=== PATIENT | female | born 1950 | race Caucasian/White ===

== ENCOUNTER 2018-09-02 20:09 | Emergency (ER) | payer MEDICARE ==
[2018-09-02] MEDS ORDERED: TYLENOL 325 MG PO STA (21:11)
[2018-09-02] MEDS ORDERED: TYLENOL 325 MG ONE (21:19)
[2018-09-02 22:08] VITALS: O2SAT 97
--- NOTE | 2018-09-02 23:04 | ERPHSYRPT ---
- History of Present Illness Source: patient, family Exam Limitations: no limitations Patient Subjective Stated Complaint: Severe pain in R hip down to R knee, states she has had blood clot in both legs in the past and this feels like that Triage Nursing Assessment: Pt a/o, brought in wheel chair, shannan ped pulses normal , cap refill <3 sec, no redness, skin warm dry, no obvious deformities, bruises , or lacerations Physician History: Pt is a 68 y/o female that presented to the ED with severe pain in the R hip and groin, that is the same pain she had in the past when she had a DVT. Pt states, the pain started suddenly and is intense. Pt denies any injury or fall. No change in medical therapy. Occurred: just prior to arrival Quality: constant, aching Lower Extremities Pain: hip: right (pain in hip and groin) Modifying Factors: Improves With: pain medication Associated Symptoms: none Allergies/Adverse Reactions: aspirin Allergy (Verified 03/26/14 17:16) clorazepate dipotassium [From Tranxene T-Tab] Allergy (Verified 09/02/18 20:44) codeine [Codeine] Allergy (Verified 03/26/14 17:16) hydrocodone bitartrate [From Vicoprofen] Allergy (Verified 03/26/14 17:16) ibuprofen [From Vicoprofen] Allergy (Verified 03/26/14 17:16) Penicillins Allergy (Verified 03/26/14 17:16) Home Medications: Rivaroxaban [Xarelto] 20 mg PO DAILY 12/17/12 [History] Atorvastatin Calcium [Lipitor] 40 mg PO QHS 09/02/18 [History] Exenatide Microspheres [Bydureon Bcise] 2 mg SQ WEEKLY 09/02/18 [History] Ezetimibe 10 mg PO QHS 09/02/18 [History] Famotidine 20 mg [Pepcid 20 MG] 20 mg PO BID 09/02/18 [History] Furosemide 20 mg [Lasix 20 mg] 20 mg PO DAILY 09/02/18 [History] Hydralazine HCl 50 mg PO DAILY 09/02/18 [History] Insulin Lispro [Humalog] 100 unit SQ 09/02/18 [History] Liraglutide [Victoza 2-Mark] DAILY 09/02/18 [History] Losartan Potassium 50 mg PO DAILY 09/02/18 [History] Hx Tetanus, Diphtheria Vaccination/Date Given: Yes Hx Influenza Vaccination/Date Given: Yes Hx Pneumococcal Vaccination/Date Given: Yes - Review of Systems Constitutional: No Fever, No Chills Respiratory: No Cough, No Dyspnea Cardiac: No Chest Pain, No Edema, No Syncope Abdominal/Gastrointestinal: No Abdominal Pain, No Nausea, No Vomiting, No Diarrhea Musculoskeletal: Arthralgias (R hip and groin), Myalgias Skin: No Rash Neurological: No Dizziness, No Focal Weakness, No Sensory Changes - Past Medical History Pertinent Past Medical History: Yes Neurological History: No Pertinent History ENT History: No Pertinent History Cardiac History: Hypertension, Other Respiratory History: COPD Endocrine Medical History: Diabetes Type II Musculoskeletal History: Other GI Medical History: Cirrhosis History: No Pertinent History Psycho-Social History: Depression Female Reproductive Disorders: No Pertinent History Other Medical History: 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 hand. right foot left foot. heart ablation - Social History Smoking Status: Never smoker Exposure to second hand smoke: No Alcohol Use: None Drug Use: none Patient Lives Alone: No Significant Family History: diabetes, hypertension - Nursing Vital Signs Nursing Vital Signs: Initial Vital Signs Temperature 97.7 F 09/02/18 20:31 Pulse Rate 79 09/02/18 20:31 Respiratory Rate 18 09/02/18 20:31 Blood Pressure 161/94 09/02/18 20:31 O2 Sat by Pulse Oximetry 99 09/02/18 20:31 Pain Scale Pain Intensity [Right Thigh] 10 Pain Intensity 10 - Physical Exam General Appearance: alert Cardiovascular/Respiratory Exam: chest non-tender, normal breath sounds, regular rate/rhythm, no respiratory distress Gastrointestinal/Abdominal Exam: non-tender, guarding Hips Exam: right: limited range of motion, pain Neuro/Tendon Exam: normal sensation, normal motor functions Mental Status Exam: alert, oriented x 3, cooperative SpO2: 97 - Course Nursing assessment & vital signs reviewed: Yes - Radiology Ultrasound Exam Right Venous Lower Extremity Ultrasound: Other (No DVT) Ordered Tests: Active Orders 24 hr Category Date Time Status VENOUS UNILAT/LIMITED EXTREMIT [US] Stat Exams 09/02/18 22:58 Taken D-DIMER QUANTITATION Stat Lab 09/02/18 20:50 Completed Medication Summary Discontinued Medications Generic Name Dose Route Start Last Admin Trade Name Ezequiel PRN Reason Stop Dose Admin Acetaminophen 650 mg 09/02/18 21:11 09/02/18 21:20 Tylenol 325 Mg PO 09/02/18 21:12 650 mg STAT STA Administration Acetaminophen Confirm 09/02/18 21:19 Tylenol 325 Mg Administered 09/02/18 21:20 Dose 650 mg .ROUTE .STPE [employer]ATIONAL-MED ONE Lab/Rad Data: Laboratory Results 09/02/18 Range/Units 20:50 D-Dimer 275 (215-500) ng/mL - Progress Progress: improved Progress Note: 09/02/18 23:04 Pt had negative D Dimer, but as pt stattes, had h/o multiple DVTs, I did order a doppler that was negative. Pt's pain got controlled with Tylenol. Pt was advised to f/u with her PCP, for more work up, including MRI. Will see patient in: office Counseled pt/family regarding: need for follow-up - Departure Time of Disposition: 23:05 Departure Disposition: Home Clinical Impression: Right hip pain Condition: Stable Critical Care Time: No Referrals: ANALI MONTGOMERY [Primary Care Provider] - Additional Instructions: F/U with PCP. Take Tylenol as needed for pain.
[2018-09-02 23:12] VITALS: BP 106/78; PULSE 86
--- NOTE | 2018-09-03 08:33 | XRAY ---
Indication: Right leg pain. Two-dimensional sonogram and color Doppler imaging of the major venous vessels of the right leg was performed. Comparison: None No thrombus seen in the examined deep venous vessels of the right leg including greater saphenous vein. Veins demonstrate normal compressibility. Venous waveforms are normal with and without augmentation. Impression: Right leg negative for DVT. Comment: Preliminary report was given.
== END 2018-09-02 23:13 | disposition home or self-care (01) ==
LOC: ED 20:09
DX: M25.551 Pain in right hip (principal); E11.9 Type 2 diabetes mellitus without complications; I10 Essential (primary) hypertension; Z79.899 Other long term (current) drug therapy
CPT/HCPCS: 36415; 85379; 93971; 99283; A9270-GY

== ENCOUNTER 2018-10-15 23:07 | Emergency (ER) | payer MEDICARE ==
[2018-10-15] MEDS ORDERED: DUONEB 0.5-3 MG/3 ml Neb IH ONE ×2 (23:32→23:39)
[2018-10-15] MEDS ORDERED: NITRO-BID 2% UD PACKETS TOP ONE (23:33)
[2018-10-15] MEDS ORDERED: NITRO-BID 2% UD PACKETS ONE (23:35)
--- NOTE | 2018-10-15 23:38 | ERPHSYRPT ---
- History of Present Illness Time Seen by Provider: 10/15/18 23:24 Source: patient, EMS Exam Limitations: clinical condition Patient Subjective Stated Complaint: midsternal chest pain that began this evening with severe sob Triage Nursing Assessment: Pt alert and oriented x 3. Skin pale. Pt unable to speak d/t SOB and is using accessory muscles. Audible wheezing present. Lung sounds wheezing and coarse throughout. Physician History: Pt started c/o midsternal chest pain, pressure, and increasing SOB few hours ago tonight. She denies productive cough, sore throat, vomiting, fever or chills. She is mod. severe distress, wheezing. Timing/Duration: today Activities at Onset: none Severity of Dyspnea-Max: severe Severity of Dyspnea-Current: severe Possible Cause: occasional episodes Modifying Factors: Improves With: nothing Associated Symptoms: constant, chest pain/discomfort, wheezing, heart racing Allergies/Adverse Reactions: aspirin Allergy (Verified 10/15/18 23:27) clorazepate dipotassium [From Tranxene T-Tab] Allergy (Verified 10/15/18 23:27) codeine [Codeine] Allergy (Verified 10/15/18 23:27) hydrocodone bitartrate [From Vicoprofen] Allergy (Verified 10/15/18 23:27) ibuprofen [From Vicoprofen] Allergy (Verified 10/15/18 23:27) Penicillins Allergy (Verified 10/15/18 23:27) Home Medications: Rivaroxaban [Xarelto] 15 mg PO DAILY 12/17/12 [History] Atorvastatin Calcium [Lipitor] 40 mg PO QHS 09/02/18 [History] Exenatide Microspheres [Bydureon Bcise] 2 mg SQ WEEKLY 09/02/18 [History] Ezetimibe 10 mg PO QHS 09/02/18 [History] Famotidine 20 mg [Pepcid 20 MG] 20 mg PO BID 09/02/18 [History] Furosemide 20 mg [Lasix 20 mg] 20 mg PO DAILY 09/02/18 [History] Hydralazine HCl 50 mg PO BID 09/02/18 [History] Insulin Lispro [Humalog] 18 unit SQ TID 09/02/18 [History] Liraglutide [Victoza 2-Mark] 1.8 units SQ DAILY 09/02/18 [History] Losartan Potassium 50 mg PO DAILY 09/02/18 [History] Hx Tetanus, Diphtheria Vaccination/Date Given: Yes Hx Influenza Vaccination/Date Given: Yes Hx Pneumococcal Vaccination/Date Given: Yes - Review of Systems Constitutional: No Symptoms Ears, Nose, & Throat: No Symptoms Respiratory: Dyspnea, Wheezing Cardiac: Chest Pain Abdominal/Gastrointestinal: Nausea Skin: No Symptoms Neurological: No Symptoms All Other Systems: Reviewed and Negative - Past Medical History Pertinent Past Medical History: Yes Neurological History: No Pertinent History ENT History: No Pertinent History Cardiac History: Hypertension, Other Respiratory History: COPD Endocrine Medical History: Diabetes Type II Musculoskeletal History: Other GI Medical History: Cirrhosis History: No Pertinent History Psycho-Social History: Depression Female Reproductive Disorders: No Pertinent History Other Medical History: hx of svt and had other arrythmias and 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 hand. right foot left foot. heart ablation. thyroidectomy - Social History Smoking Status: Never smoker Exposure to second hand smoke: No Alcohol Use: None Drug Use: none Patient Lives Alone: No Significant Family History: diabetes, hypertension - Female History Hx Now: No - Nursing Vital Signs Nursing Vital Signs: Initial Vital Signs Temperature 98.9 F 10/15/18 23:08 Pulse Rate 147 H 10/15/18 23:08 Respiratory Rate 32 H 10/15/18 23:08 Blood Pressure 215/101 10/15/18 23:08 O2 Sat by Pulse Oximetry 80 L 10/15/18 23:08 Pain Scale Pain Intensity 10 - Physical Exam General Appearance: moderate distress Eye Exam: eyes nml inspection Ears, Nose, Throat Exam: normal ENT inspection, normal pharynx Neck Exam: normal inspection, non-tender, supple, No carotid bruit, No JVD Respiratory Exam: rhonchi, wheezing (diffuse, bilateral) Cardiovascular/Chest Exam: normal peripheral pulses, tachycardia, irregular, No murmur, No JVD Abdominal/Gastrointestinal Exam: soft, No tenderness Peripheral Pulses Exam: dorsalis-pedis (R): 1+, dorsalis-pedis (L): 1+ Neurologic Exam: alert, oriented x 3, cooperative, normal mood/affect Skin Exam: normal color, warm, dry, No rash Lymphatic Exam: No adenopathy SpO2 Interpretation: hypoxic SpO2: 80 O2 Delivery: Nasal Cannula - Course Nursing assessment & vital signs reviewed: Yes EKG Interpreted by Me: RATE (103), Other (paced) - Radiology Exams Chest X-ray Interpretation: Interpreted by me, Other (Cardiomegaly, CHF) Ordered Tests: Active Orders 24 hr Category Date Time Status Darklight Inspector STAT Care 10/15/18 23:33 Active EKG-ER Only STAT Care 10/15/18 23:32 Active Bishop [Catheter-Moran Bishop] STAT Care 10/16/18 00:05 Active IV Insertion STAT Care 10/15/18 23:32 Active CHEST 1 VIEW (PORTABLE) Stat Exams 10/15/18 23:32 Taken ARTERIAL BLOOD GASES Stat Lab 10/15/18 23:54 Completed CBC W DIFF Stat Lab 10/15/18 23:30 Completed CMP Stat Lab 10/15/18 23:30 Completed Lactic Acid Stat Lab 10/15/18 23:54 Results MAGNESIUM Stat Lab 10/15/18 23:30 Completed NT PRO BNP Stat Lab 10/15/18 23:30 Completed PROTIME WITH INR Stat Lab 10/15/18 23:30 Completed PTT Stat Lab 10/15/18 23:30 Completed TROPONIN Q3H Lab 10/15/18 23:30 Completed TROPONIN Q3H Lab 10/16/18 02:45 Ordered TROPONIN Q3H Lab 10/16/18 05:45 Ordered TROPONIN Q3H Lab 10/16/18 08:45 Ordered TROPONIN Q3H Lab 10/16/18 11:45 Ordered BiPap/CPAP STAT RT 10/15/18 23:32 Active Respiratory Nebulizer STAT RT 10/15/18 23:33 Completed Respiratory Therapy Assessment DAILY RT 10/16/18 00:24 Active Medication Summary Discontinued Medications Generic Name Dose Route Start Last Admin Trade Name Freq PRN Reason Stop Dose Admin Albuterol/Ipratropium 3 ml 10/15/18 23:32 10/15/18 23:40 Duoneb 0.5-3 Mg/3 Ml Neb IH 10/15/18 23:33 3 ml STAT ONE Administration Albuterol/Ipratropium Confirm 10/15/18 23:39 Duoneb 0.5-3 Mg/3 Ml Neb Administered 10/15/18 23:40 Dose 3 ml IH .STK-MED ONE Furosemide 80 mg 10/15/18 23:44 10/15/18 23:48 Lasix 40 Mg/4 Ml IV 10/15/18 23:45 80 mg STAT ONE Administration Furosemide Confirm 10/15/18 23:46 Lasix 40 Mg/4 Ml Administered 10/15/18 23:47 Dose 80 mg .ROUTE .STK-MED ONE Insulin Human Regular 6 unit 10/16/18 01:05 Novolin R SQ 10/16/18 01:06 STAT ONE Nitroglycerin 1 gm 10/15/18 23:33 10/15/18 23:36 Nitro-Bid 2% Ud Packets TOP 10/15/18 23:34 1 gm STAT ONE Administration Nitroglycerin Confirm 10/15/18 23:35 Nitro-Bid 2% Ud Packets Administered 10/15/18 23:36 Dose 1 gm .ROUTE .STK-MED ONE Lab/Rad Data: Laboratory Result Diagrams 10/15/18 23:30 10/15/18 23:30 Laboratory Results 10/15/18 10/15/18 10/15/18 Range/Units 23:54 23:54 23:30 WBC (4.0-10.5) K/mm3 RBC (4.1-5.4) M/mm3 Hgb (12.0-16.0) gm/dl Hct (35-47) % MCV (78-100) fl MCH (26-32) pg MCHC (32-36) g/dl RDW (11.5-14.0) % Plt Count (150-450) K/mm3 MPV (6-9.5) fl Gran % (36.0-66.0) % Eos # (Auto) (0-0.5) Absolute Lymphs (auto) (1.0-4.6) Absolute Monos (auto) (0.0-1.3) Lymphocytes % (24.0-44.0) % Monocytes % (0.0-12.0) % Eosinophils % (0.00-5.0) % Basophils % (0.0-0.4) % Absolute Granulocytes (1.4-6.9) Basophils # (0-0.4) PT (9.95-12.35) SECONDS INR (0.8-3.0) APTT (25.3-37.0) SECONDS Puncture Site LEFT BRACHIAL pCO2 44 (35-45) mmHg pO2 159 H* (75-100) mmHg Base Excess -2.8 L (-2.0-2.0) O2 Saturation 96.8 (94-100) g/dF ABG pH 7.33 L (7.35-7.45) ABG HCO3 23.2 (22-28) ABG O2 Sat (Measured) 99.0 (95-100) % Jonas Test NOT APPLICABLE A-a Gradient 71 a/A Ratio 0.69 Hemoglobin 11.5 Carboxyhemoglobin 1.3 (0.0-6.9) % THgb Methemoglobin 0.9 L (1.4-1.5) % Temperature 37.0 C POC O2 Flow Rate 40 % Inspiratory BiPAP 12 Expiratory BiPAP 6 Sodium (137-145) mmol/L Potassium 4.7 (3.5-5.1) mmol/L Chloride (98-107) mmol/L Carbon Dioxide (22-30) mmol/L Anion Gap (5-15) MEQ/L BUN (7-17) mg/dL Creatinine (0.52-1.04) mg/dL Estimated GFR ML/MIN Glucose (74-106) mg/dL Lactic Acid 2.4 H (0.4-2.0) Calcium (8.4-10.2) mg/dL Magnesium (1.6-2.3) mg/dL Total Bilirubin (0.2-1.3) mg/dL AST (14-36) U/L ALT (0-35) U/L Alkaline Phosphatase (38-126) U/L Troponin I 0.044 H* (0.000-0.034) ng/mL NT-Pro-B Natriuret Pep (0-900) pg/mL Serum Total Protein (6.3-8.2) g/dL Albumin (3.5-5.0) g/dL 10/15/18 10/15/18 10/15/18 Range/Units 23:30 23:30 23:30 WBC 6.1 (4.0-10.5) K/mm3 RBC 3.52 L (4.1-5.4) M/mm3 Hgb 11.1 L (12.0-16.0) gm/dl Hct 36.1 (35-47) % MCV 102.6 H (78-100) fl MCH 31.5 (26-32) pg MCHC 30.7 L (32-36) g/dl RDW 15.2 H (11.5-14.0) % Plt Count 110 L (150-450) K/mm3 MPV 9.7 H (6-9.5) fl Gran % 68.7 H (36.0-66.0) % Eos # (Auto) 0.08 (0-0.5) Absolute Lymphs (auto) 1.42 (1.0-4.6) Absolute Monos (auto) 0.40 (0.0-1.3) Lymphocytes % 23.2 L (24.0-44.0) % Monocytes % 6.5 (0.0-12.0) % Eosinophils % 1.3 (0.00-5.0) % Basophils % 0.3 (0.0-0.4) % Absolute Granulocytes 4.20 (1.4-6.9) Basophils # 0.02 (0-0.4) PT 11.5 (9.95-12.35) SECONDS INR 0.99 (0.8-3.0) APTT 28.9 (25.3-37.0) SECONDS Puncture Site pCO2 (35-45) mmHg pO2 (75-100) mmHg Base Excess (-2.0-2.0) O2 Saturation (94-100) g/dF ABG pH (7.35-7.45) ABG HCO3 (22-28) ABG O2 Sat (Measured) (95-100) % Jonas Test A-a Gradient a/A Ratio Hemoglobin Carboxyhemoglobin (0.0-6.9) % THgb Methemoglobin (1.4-1.5) % Temperature C POC O2 Flow Rate % Inspiratory BiPAP Expiratory BiPAP Sodium 139 (137-145) mmol/L Potassium 4.7 (3.5-5.1) mmol/L Chloride 103 (98-107) mmol/L Carbon Dioxide 26 (22-30) mmol/L Anion Gap 14.6 (5-15) MEQ/L BUN 24 H (7-17) mg/dL Creatinine 1.27 H (0.52-1.04) mg/dL Estimated GFR 44.2 ML/MIN Glucose 309 H (74-106) mg/dL Lactic Acid (0.4-2.0) Calcium 9.6 (8.4-10.2) mg/dL Magnesium 2.0 (1.6-2.3) mg/dL Total Bilirubin 0.80 (0.2-1.3) mg/dL AST 24 (14-36) U/L ALT 23 (0-35) U/L Alkaline Phosphatase 110 (38-126) U/L Troponin I (0.000-0.034) ng/mL NT-Pro-B Natriuret Pep 1130 H (0-900) pg/mL Serum Total Protein 7.9 (6.3-8.2) g/dL Albumin 4.2 (3.5-5.0) g/dL - Progress Progress: improved Air Movement: fair Progress Note: 10/16/18 01:21 Pt was given 80 mg Lasix iv , 1 inch NTP, Bishop catheter inserted, and started on BiPAP, (12/ 40 % PO2,), imporved her heart rate controlled now 60/min, blood pressure improved, as well as her chest pain, stable, and afebrile. We called Dr Rosenberg at [facility] ED, discussed her case in details, he accepted patient to be transferred there for further treatment, patient anmd her family were informed and agreed, they understood all risks and benefits of her transfer, she is stable to be transported to [facility]. Blood Culture(s) Obtained: No Antibiotics given: No Counseled pt/family regarding: lab results, diagnosis, rad results - Departure Time of Disposition: 01:24 Departure Disposition: Transfer Clinical Impression: Elevated troponin Congestive heart failure Qualifiers: Heart failure type: unspecified Heart failure chronicity: acute Qualified Code( s): I50.9 - Heart failure, unspecified Condition: Fair Critical Care Time: Yes Critical Care Time(excluding separately billable procedures): 30-74 minutes Referrals: ANALI MONTGOMERY [Primary Care Provider] - Instructions: Heart Failure, Atypical Chest Pain
[2018-10-15] MEDS ORDERED: Lasix 40 MG/4 ML IV ONE (23:44)
[2018-10-15] MEDS ORDERED: Lasix 40 MG/4 ML ONE (23:46)
[2018-10-15 23:54] LABS: BASOPHIL % 0.3 % (0.0-0.4); Basophil (Absolute #) 0.02 (0-0.4); Eosinophil % 1.3 % (0.00-5.0); Eosinophil (Absolute #) 0.08 (0-0.5); Granulocytes % 68.7 % (36.0-66.0); Hematocrit 36.1 % (35-47); Hemoglobin 11.1 gm/dl (12.0-16.0); Lymphocyte (Absolute #) 1.42 (1.0-4.6); Lymphocytes % 23.2 % (24.0-44.0); Mean Cell Volume 102.6 fl (78-100); Mean Corpuscular Hemoglobin 31.5 pg (26-32); Mean Corpuscular Hgb Concent. 30.7 g/dl (32-36); Mean Platelet Volume 9.7 fl (6-9.5); Monocytes % 6.5 % (0.0-12.0); Platelet Count 110 K/mm3 (150-450); Red Blood Count 3.52 M/mm3 (4.1-5.4); Red Cell Distribution Width 15.2 % (11.5-14.0); White Blood Count 6.1 K/mm3 (4.0-10.5)
[2018-10-15 23:59] LABS: Lactic Acid 2.4 (0.4-2.0)
[2018-10-16 00:01] LABS: INR 0.99 (0.8-3.0); PROTIME 11.5 SECONDS (9.95-12.35)
[2018-10-16 00:03] LABS: A-aADO2 71; ABG HEMOGLOBIN 11.5; ABG POTASSIUM 4.7 (3.5-5.1); ABG SITE LEFT BRACHIAL; ARTERIAL BLOOD GAS BASE EXCESS -2.8 (-2.0-2.0); ARTERIAL BLOOD GAS FIO2 40 %; ARTERIAL BLOOD GAS PCO2 44 mmHg (35-45); ARTERIAL BLOOD GAS PO2 159 mmHg (75-100); ARTERIAL BLOOD GAS pH 7.33 (7.35-7.45); CARBOXYHEMOGLOBIN 1.3 % THgb (0.0-6.9); HCO3- 23.2 (22-28); HGB O2 SAT 96.8 g/dF (94-100); Methhemoglobin 0.9 % (1.4-1.5); paO2 pAO1 0.69
[2018-10-16 00:04] LABS: PTT 28.9 SECONDS (25.3-37.0)
[2018-10-16 00:14] LABS: ALBUMIN 4.2 g/dL (3.5-5.0); ANION GAP 14.6 MEQ/L (5-15); BILIRUBIN,TOTAL 0.8 mg/dL (0.2-1.3); Calcium 9.6 mg/dL (8.4-10.2); Creatinine 1 1.27 mg/dL (0.52-1.04); Potassium 4.7 mmol/L (3.5-5.1); Total Protein 7.9 g/dL (6.3-8.2)
[2018-10-16] MEDS ORDERED: NovoLIN R SQ ONE (01:05)
[2018-10-16] MEDS ORDERED: NovoLIN R ONE ×2 (01:24→01:42)
[2018-10-16] MEDS ORDERED: NovoLOG Insulin SQ ONE (01:44)
[2018-10-16] MEDS ORDERED: NovoLOG Insulin ONE (01:48)
[2018-10-16 02:11] VITALS: BP 172/58; PULSE 112; O2SAT 98
--- NOTE | 2018-10-16 08:49 | XRAY ---
Indication: Dyspnea. Comparison: March 26, 2014. Portable chest demonstrates new diffuse pulmonary edema with small bibasilar effusions. Heart is borderline-enlarged with stable left pacemaker. Bony thorax intact again with osteopenia and degenerative changes. Impression: New borderline cardiomegaly with pulmonary edema and bibasilar effusions. Rule out cardiac decompensation. Superimposed pneumonia not completely excluded. Comment: New cardiopulmonary findings not reported on preliminary interpretation by the ER clinician. Telephone report given to Dr. Chavis at 0840 hrs. on October 15, 2018.
== END 2018-10-16 02:20 | disposition short-term general hospital (02) ==
LOC: ED 23:07
DX: R74.8 Abnormal levels of other serum enzymes (principal); I50.9 Heart failure, unspecified; E11.9 Type 2 diabetes mellitus without complications; I10 Essential (primary) hypertension; J44.9 Chronic obstructive pulmonary disease, unspecified; K74.60 Unspecified cirrhosis of liver; Z79.899 Other long term (current) drug therapy
CPT/HCPCS: 36000; 36415; 36600; 51702; 71045; 80053; 82375; 82803; 83605; 83735; 83880; 84484; 85025; 85610; 85730; 93005; 93041; 94002; 94640; 96372; 96374; 99285; 99291; J1940; A9270-GY

== ENCOUNTER 2019-05-06 18:28 | Observation (INO) | payer MEDICARE ==
[~2019-05-06 18:28] MED LIST: XARELTO 10 MG TABLET PO SCH
[2019-05-06] MEDS ORDERED: MORPHINE SULFATE 2 MG INJ IV ONE (19:31)
[2019-05-06] MEDS ORDERED: Zofran 4 MG/2 ML VIAL IV ONE (19:31)
--- NOTE | 2019-05-06 19:52 | ERPHSYRPT ---
- History of Present Illness Time Seen by Provider: 05/06/19 19:02 Historian: patient, family Exam Limitations: no limitations Patient Subjective Stated Complaint: Pain and numbness to right lower arm Triage Nursing Assessment: Patient brought back to ED via w/c and transferred self to bed. Patient A+O X 3. Patient's skin pink, warm and dry. Patient complains of right arm pain and numbness since last night around midnight. Patient able to move extremity. Patient complains of constant throbbing pain 8/ 10 with numbness in the fingers. Physician History: 68 yo with DM, HTN , CAD, PE on xarelto, pacemaker/defibrillator placement with recent abnormal stress test 2 weeks ago with planning of cardiac cath soon by cardiology is here with right arm pressure /tightness with some throbbing pain intermittently since midnight without any aggravating /relieving factors . denies any chest pain but occasional feeling of tightness but no SOB. no fever or chills. no neck pain /fall or trauma to arm. Timing/Duration: today Activities at Onset: none Quality: throbbing Location: other Chest Pain Radiation: no radiation Severity of Pain-Max: moderate Severity of Pain-Current: moderate Modifying Factors: Improves With: nothing Associated Symptoms: denies symptoms Prior Chest Pain/Cardiac Workup: pulmonary embolism, stress test Nitro Today/Relief: no nitro taken today Aspirin Treatment Today: no aspirin today Allergies/Adverse Reactions: aspirin Allergy (Verified 05/06/19 18:35) clorazepate dipotassium [From Tranxene T-Tab] Allergy (Verified 05/06/19 18:35) codeine [Codeine] Allergy (Verified 05/06/19 18:35) hydrocodone bitartrate [From Vicoprofen] Allergy (Verified 05/06/19 18:35) ibuprofen [From Vicoprofen] Allergy (Verified 05/06/19 18:35) Penicillins Allergy (Verified 05/06/19 18:35) Home Medications: Rivaroxaban [Xarelto] 15 mg PO DAILY 12/17/12 [History] Atorvastatin Calcium [Lipitor] 40 mg PO QHS 09/02/18 [History] Exenatide Microspheres [Bydureon Bcise] 2 mg SQ WEEKLY 09/02/18 [History] Ezetimibe 10 mg PO QHS 09/02/18 [History] Famotidine 20 mg [Pepcid 20 MG] 20 mg PO BID 09/02/18 [History] Furosemide 20 mg [Lasix 20 mg] 20 mg PO DAILY 09/02/18 [History] Hydralazine HCl 50 mg PO BID 09/02/18 [History] Insulin Lispro [Humalog] 18 unit SQ TID 09/02/18 [History] Liraglutide [Victoza 2-Mark] 1.8 units SQ DAILY 09/02/18 [History] Losartan Potassium 50 mg PO DAILY 09/02/18 [History] Hx Tetanus, Diphtheria Vaccination/Date Given: Yes Hx Influenza Vaccination/Date Given: No Hx Pneumococcal Vaccination/Date Given: Yes Immunizations Up to Date: Yes - Past Medical History Pertinent Past Medical History: Yes Neurological History: No Pertinent History ENT History: No Pertinent History Cardiac History: Hypertension, Other Respiratory History: COPD Endocrine Medical History: Diabetes Type II Musculoskeletal History: Other GI Medical History: Cirrhosis History: No Pertinent History Psycho-Social History: Depression Female Reproductive Disorders: No Pertinent History Other Medical History: hx of svt and had other arrythmias and 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 hand. right foot left foot. heart ablation. thyroidectomy - Social History Smoking Status: Never smoker Exposure to second hand smoke: No Alcohol Use: None Drug Use: none Patient Lives Alone: No Significant Family History: diabetes, hypertension - Female History Hx Now: No - Nursing Vital Signs Nursing Vital Signs: Initial Vital Signs Temperature 97.7 F 05/06/19 18:36 Pulse Rate 98 H 05/06/19 18:36 Respiratory Rate 18 05/06/19 18:36 Blood Pressure 157/92 05/06/19 18:36 O2 Sat by Pulse Oximetry 96 05/06/19 18:36 Pain Scale Pain Intensity 1 - Physical Exam SpO2: 96 - Course EKG Interpreted by Me: RATE (63), Sinus Rhythm, Left [place] Deviation, Other ( paced) Ordered Tests: Active Orders 24 hr Category Date Time Status Up With Assistance Activity 05/06/19 21:42 Active Accucheck ACHS Care 05/06/19 21:41 Active Visual Coordinator STAT Care 05/06/19 19:32 Active Code Status Order ROUTINE Care 05/06/19 21:41 Active IV Care Q6H Care 05/06/19 21:41 Active IV Insertion STAT Care 05/06/19 19:31 Active Implement Chest Pain Pathway ROUTINE Care 05/06/19 21:[address] in Observation ROUTINE Care 05/06/19 21:41 Active Kel F[place], Apply ROUTINE Care 05/06/19 21:41 Active Vital Signs Q4H Care 05/06/19 21:41 Active Weight,Daily 0600 Care 05/06/19 21:41 Active CHEST 1 VIEW (PORTABLE) Stat Exams 05/06/19 19:31 Taken CBC W DIFF Stat Lab 05/06/19 19:31 Completed CMP Stat Lab 05/06/19 20:00 Completed LIPID PROFILE AM.LAB Lab 05/07/19 04:00 Ordered NT PRO BNP Stat Lab 05/06/19 20:00 Completed TROPONIN AM.LAB Lab 05/07/19 04:00 Ordered TROPONIN Q3H Lab 05/06/19 19:45 Completed TROPONIN Q3H Lab 05/06/19 22:45 Ordered TROPONIN Q3H Lab 05/07/19 01:45 Ordered TROPONIN Q3H Lab 05/07/19 04:45 Ordered TROPONIN Q3H Lab 05/07/19 07:45 Ordered EKG Q8HX2,QAMX3,PRN RT 05/06/19 21:41 Active Pulse Oximetry Q4H RT 05/06/19 21:41 Active Medication Summary Generic Name Dose Route Start Last Admin Trade Name Freq PRN Reason Stop Dose Admin Acetaminophen 650 mg 05/06/19 21:41 Tylenol 325 Mg PO 06/05/19 21:40 Q4H PRN PRN PAIN AND/OR FEVER Al Hydrox/Mg Hydrox/Simethicone 30 ml 05/06/19 21:41 Maalox Es 30 Ml Unit Dose PO 06/05/19 21:40 Q4H PRN PRN INDIGESTION Ezetimibe 10 mg 05/06/19 22:00 Zetia 10 Mg PO 06/05/19 21:59 HS DESI Famotidine 20 mg 05/06/19 22:00 Pepcid 20 Mg PO 06/05/19 21:59 BID DESI Hydralazine HCl 50 mg 05/06/19 22:00 Apresoline 25 Mg Tablet PO 06/05/19 21:59 BID DESI Magnesium Hydroxide 30 - 60 ml 05/06/19 21:41 Milk Of Magnesia 30 Ml PO 06/05/19 21:40 QDP PRN CONSTIPATION Ondansetron HCl 4 mg 05/06/19 21:41 Zofran 4 Mg/2 Ml Vial IV 06/05/19 21:40 Q4H PRN PRN NAUSEA/VOMITING Rivaroxaban 15 mg 05/06/19 18:00 Xarelto 10 Mg Tablet PO 06/05/19 17:59 EVENING MEAL DESI Senna/Docusate Sodium 2 udtab 05/06/19 21:41 Senokot-S Tablet PO 06/05/19 21:40 BID PRN PRN CONSTIPATION Simvastatin 80 mg 05/06/19 22:00 Zocor 20mg PO 06/05/19 21:59 HS DESI Discontinued Medications Generic Name Dose Route Start Last Admin Trade Name Freq PRN Reason Stop Dose Admin Acetaminophen 975 mg 05/06/19 20:58 05/06/19 21:02 Tylenol 325 Mg PO 05/06/19 20:59 975 mg STAT STA Administration Acetaminophen Confirm 05/06/19 21:00 Tylenol 325 Mg Administered 05/06/19 21:01 Dose 975 mg .ROUTE .STK-MED ONE Morphine Sulfate 2 mg 05/06/19 19:31 05/06/19 20:40 Morphine Sulfate 2 Mg Inj IV 05/06/19 19:32 Not Given STAT ONE Morphine Sulfate Confirm 05/06/19 20:30 Morphine Sulfate 2 Mg Inj Administered 05/06/19 20:31 Dose 2 mg .ROUTE .STK-MED ONE Ondansetron HCl 4 mg 05/06/19 19:31 05/06/19 20:32 Zofran 4 Mg/2 Ml Vial IV 05/06/19 19:32 4 mg STAT ONE Administration Ondansetron HCl Confirm 05/06/19 20:30 Zofran 4 Mg/2 Ml Vial Administered 05/06/19 20:31 Dose 4 mg .ROUTE .STK-MED ONE Lab/Rad Data: Laboratory Result Diagrams 05/06/19 19:31 05/06/19 20:00 Laboratory Results 05/06/19 05/06/19 05/06/19 Range/Units 20:00 19:45 19:31 WBC 5.2 (4.0-10.5) K/mm3 RBC 4.04 L (4.1-5.4) M/mm3 Hgb 12.4 (12.0-16.0) gm/dl Hct 38.1 (35-47) % MCV 94.3 (78-100) fl MCH 30.6 (26-32) pg MCHC 32.5 (32-36) g/dl RDW 15.2 H (11.5-14.0) % Plt Count 95 L (150-450) K/mm3 MPV 10.3 H (6-9.5) fl Gran % 73.5 H (36.0-66.0) % Eos # (Auto) 0.07 (0-0.5) Absolute Lymphs (auto) 0.99 L (1.0-4.6) Absolute Monos (auto) 0.32 (0.0-1.3) Lymphocytes % 18.9 L (24.0-44.0) % Monocytes % 6.1 (0.0-12.0) % Eosinophils % 1.3 (0.00-5.0) % Basophils % 0.2 (0.0-0.4) % Absolute Granulocytes 3.85 (1.4-6.9) Basophils # 0.01 (0-0.4) Sodium 142 (137-145) mmol/L Potassium 4.2 (3.5-5.1) mmol/L Chloride 101 (98-107) mmol/L Carbon Dioxide 27 (22-30) mmol/L Anion Gap 18.5 H (5-15) MEQ/L BUN 22 H (7-17) mg/dL Creatinine 1.03 (0.52-1.04) mg/dL Estimated GFR 56.3 ML/MIN Glucose 375 H (74-106) mg/dL Calcium 9.5 (8.4-10.2) mg/dL Total Bilirubin 0.60 (0.2-1.3) mg/dL AST 23 (14-36) U/L ALT 17 (0-35) U/L Alkaline Phosphatase 99 (38-126) U/L Troponin I 0.023 (0.000-0.034) ng/mL NT-Pro-B Natriuret Pep 981 H (0-900) pg/mL Serum Total Protein 7.7 (6.3-8.2) g/dL Albumin 4.2 (3.5-5.0) g/dL - Progress Progress: improved, re-examined Air Movement: fair Progress Note: 68years old is evaluated for right arm pain and mild chest tightness. Patient is allergic to aspirin. She is offered morphine which she refused. Her pain is much improved with Tylenol. EKG showed paced rhythm. Negative initial troponins. Chest x-ray negative for any acute findings. Grossly unremarkable workup otherwise. Since she has a history of abnormal stress test recently, [facility] have[facility] on-call, recommended medical management at this point as if his negative troponins with pain more than 12 hour, continue trend troponins at this point. Discussed with patient/family about admission here sending to [facility], opted for staying here. Discussed with Dr. Campbell & patient is being admitted for rule out. 05/06/19 21:44 05/06/19 23:33 Blood Culture(s) Obtained: No Antibiotics given: No Discussed with : Ally Will see patient in: hospital (observation) Counseled pt/family regarding: lab results, diagnosis, rad results - Departure Departure Disposition: Observation Clinical Impression: Chest pain, rule out acute myocardial infarction Condition: Stable Critical Care Time: No
[2019-05-06 20:04] LABS: Absolute Neutrophil Ct (ANC) 3.85 (1.4-6.9); BASOPHIL % 0.2 % (0.0-0.4); Basophil (Absolute #) 0.01 (0-0.4); Eosinophil % 1.3 % (0.00-5.0); Eosinophil (Absolute #) 0.07 (0-0.5); Hematocrit 38.1 % (35-47); Hemoglobin 12.4 gm/dl (12.0-16.0); Lymphocyte (Absolute #) 0.99 (1.0-4.6); Lymphocytes % 18.9 % (24.0-44.0); Mean Cell Volume 94.3 fl (78-100); Mean Corpuscular Hgb Concent. 32.5 g/dl (32-36); Mean Platelet Volume 10.3 fl (6-9.5); Monocyte (Absolute #) 0.32 (0.0-1.3); Monocytes % 6.1 % (0.0-12.0); Neutrophil % 73.5 % (36.0-66.0); Platelet Count 95 K/mm3 (150-450); Red Blood Count 4.04 M/mm3 (4.1-5.4); Red Cell Distribution Width 15.2 % (11.5-14.0); White Blood Count 5.2 K/mm3 (4.0-10.5)
[2019-05-06 20:08] LABS: Mean Corpuscular Hemoglobin 30.6 pg (26-32)
[2019-05-06 20:27] LABS: ALBUMIN 4.2 g/dL (3.5-5.0); ANION GAP 18.5 MEQ/L (5-15); BILIRUBIN,TOTAL 0.6 mg/dL (0.2-1.3); Calcium 9.5 mg/dL (8.4-10.2); Creatinine 1 1.03 mg/dL (0.52-1.04); Potassium 4.2 mmol/L (3.5-5.1); Total Protein 7.7 g/dL (6.3-8.2)
[2019-05-06] MEDS ORDERED: Zofran 4 MG/2 ML VIAL ONE (20:30)
[2019-05-06] MEDS ORDERED: MORPHINE SULFATE 2 MG INJ ONE (20:30)
[2019-05-06] MEDS ORDERED: TYLENOL 325 MG PO STA (20:58)
[2019-05-06] MEDS ORDERED: TYLENOL 325 MG ONE (21:00)
[2019-05-06] MEDS ORDERED: Senokot-S Tablet PO PRN (21:41)
[2019-05-06] MEDS ORDERED: Zofran 4 MG/2 ML VIAL IV PRN (21:41)
[2019-05-06] MEDS ORDERED: MAALOX ES 30 ML UNIT DOSE PO PRN (21:41)
[2019-05-06] MEDS ORDERED: MILK OF MAGNESIA 30 ML PO PRN (21:41)
[2019-05-06] MEDS ORDERED: TYLENOL 325 MG PO PRN (21:41)
[2019-05-06] MEDS ORDERED: Pepcid 20 MG PO SCH (22:00)
[2019-05-06] MEDS ORDERED: Zetia 10 MG PO SCH (22:00)
[2019-05-06] MEDS ORDERED: ZOCOR 20MG PO SCH (22:00)
[2019-05-06] MEDS ORDERED: Apresoline 25 MG TABLET PO SCH (22:00)
[2019-05-06 23:57] LABS: Slide Review 1 YES
[2019-05-07 04:43] LABS: Absolute Neutrophil Ct (ANC) 2.89 (1.4-6.9); BASOPHIL % 0.4 % (0.0-0.4); Basophil (Absolute #) 0.02 (0-0.4); Eosinophil % 1.9 % (0.00-5.0); Eosinophil (Absolute #) 0.09 (0-0.5); Hematocrit 35.1 % (35-47); Hemoglobin 11.1 gm/dl (12.0-16.0); Lymphocyte (Absolute #) 1.48 (1.0-4.6); Lymphocytes % 30.7 % (24.0-44.0); Mean Cell Volume 94.1 fl (78-100); Mean Corpuscular Hgb Concent. 31.6 g/dl (32-36); Mean Platelet Volume 10.1 fl (6-9.5); Monocyte (Absolute #) 0.34 (0.0-1.3); Monocytes % 7.1 % (0.0-12.0); Neutrophil % 59.9 % (36.0-66.0); Platelet Count 92 K/mm3 (150-450); Red Blood Count 3.73 M/mm3 (4.1-5.4); Red Cell Distribution Width 15.2 % (11.5-14.0); White Blood Count 4.8 K/mm3 (4.0-10.5)
[2019-05-07 04:48] LABS: Mean Corpuscular Hemoglobin 29.7 pg (26-32)
[2019-05-07 04:59] LABS: ALBUMIN 3.5 g/dL (3.5-5.0); ANION GAP 10.4 MEQ/L (5-15); BILIRUBIN,TOTAL 0.5 mg/dL (0.2-1.3); Creatinine 1 1.02 mg/dL (0.52-1.04); Potassium 4.4 mmol/L (3.5-5.1); Total Protein 6.3 g/dL (6.3-8.2)
[2019-05-07 05:46] LABS: Slide Review 1 YES
[2019-05-07 05:59] LABS: TROPONIN 0.4 ng/mL (0.000-0.034)
[2019-05-07] MEDS ORDERED: PROVENTIL 2.5 MG/3 ML NEB IH PRN (07:00)
[2019-05-07 07:47] VITALS: BP 143/60; PULSE 62; O2SAT 97
--- NOTE | 2019-05-07 08:59 | XRAY ---
Indication: Pain and right arm numbness. Comparison: April 21, 2019. Portable chest again demonstrates chronic lung markings without focal infiltrate, consolidation, or large effusion. Heart remains enlarged with left sided pacemaker. No new/acute findings.
--- NOTE | 2019-05-07 12:00 | SSS ---
ADMISSION DIAGNOSES: 1) Right arm pain. 2) History of coronary artery disease. 3) Diabetes mellitus type 2. DISCHARGE DIAGNOSES: 1) NON-ST ELEVATION MYOCARDIAL INFARCTION. 2) RIGHT ARM PAIN. 3) HISTORY OF CORONARY ARTERY DISEASE. 4) DIABETES MELLITUS TYPE 2. HISTORY OF PRESENT ILLNESS: This is a 68 year old patient who sees a primary care doctor in [place] who presented to the emergency department complaining of right arm pain from her shoulder to her hand that was getting worse. She said it felt numb. She recently had a stress test with her manager image, Dr. Ayala, two weeks ago and was told that she had a blockage and needed a stent but that time but had not been set up yet. She had no previous stents to her heart. She does have a pacemaker with a defibrillator which she said is for congestive heart failure. She was having pain when she was here in the hospital visiting her niece and so they took her to the emergency department for further evaluation and treatment. The patient had serial troponins overnight and three negative troponins and the last one was positive at 0.4. Her manager image group that was employee relations advisor had already been contacted when she was in the emergency department and said they were okay with her being observed here so they were contacted again with the positive troponin and asked for her to be transferred to be transferred to [facility] where they could evaluate and treat her there. The patient when I saw her this morning denies any arm pain. Stated no chest pain at this time. She had the stress test because she was having heart pain she said. REVIEW OF SYSTEMS: No shortness of breath. No dyspnea. No chest pain at this time. No constipation. No diarrhea. No fever. No rashes. PAST MEDICAL HISTORY: Long history of diabetes mellitus type 2. She sees the nurse practitioner at Dr. Hayward's office and has a continuous blood glucose monitor as well as an insulin pump which she manages along with her cutter [employer]. Hyperlipidemia. Coronary artery disease. Hypertension. Hypothyroidism. PAST SURGICAL HISTORY: Noncontributory. MEDICATIONS: Please see the home medication reconciliation list which I reviewed. ALLERGIES: PENICILLIN. ASPIRIN. CLORAZEPATE. CODEINE. HYDROCODONE. IBUPROFEN. SOCIAL HISTORY: She lives with her mother who is 89. No tobacco or alcohol use. FAMILY HISTORY: Her mother has coronary artery disease. PHYSICAL EXAMINATION: VITAL SIGNS: Temperature current 98.4F, temperature max 98.4F, heart rate 62, respiratory rate 18, blood pressure 143/60. Oxygen saturation 97% on room air. GENERAL: The patient is a pleasant talkative lady sitting up in bed in no acute distress. She was giving herself insulin bolus with her pump. CVS: Her heart has a regular rate and rhythm. No murmurs, gallops or rubs. Pacemaker in place. CHEST: Clear to auscultation bilaterally. ABDOMEN: Soft, nontender, nondistended. SKIN: Warm, dry and intact and without rashes. EXTREMITIES: No clubbing, cyanosis or edema. LABORATORY DATA AND TESTS: Troponin 0.4. Hemoglobin 11.1. Glucose 238. Hemoglobin A1C 8.1. Fasting lipid profile within normal limits. She had a chest x-ray that was read as chronic lung markings without focal infiltrates, consolidation or large effusion. Heart remains enlarged with left-sided pacemaker. Please see the radiologist dictation for the full report. EKG revealed a paced rhythm. ASSESSMENT AND PLAN: 1) NON-ST ELEVATION MYOCARDIAL INFARCTION: Her manager image group employee relations advisor was notified of her elevated troponin and asked for her to be transferred to [facility] and so transferred to [facility]. She had been given aspirin and was continued on her anticoagulation. 2) RIGHT ARM PAIN: This had resolved during her hospital stay. It may be related to the coronary artery disease. 3) HISTORY OF CORONARY ARTERY DISEASE: She had a recent positive stress test and was told that she will need a heart cath with a stent. 4) DIABETES MELLITUS TYPE 2 WITH HYPERGLYCEMIA: Her hemoglobin A1C was slightly elevated. Again, she uses an insulin pump and follows with an cutter [employer] as an outpatient. DISPOSITION: The patient was discharged to [facility] for further care per the specialist. Dr. Allan is the manager image accepting the transfer. She was transferred by [facility].
[2019-05-07] MEDS ORDERED: ZOCOR 20MG PO SCH (22:00)
== END 2019-05-07 08:25 | disposition home or self-care (01) ==
LOC: ED 18:28 → MED SURG 22:03
PROVIDERS: ADMIT Internal Medicine; ATTEND Internal Medicine
DX: I21.4 Non-ST elevation (NSTEMI) myocardial infarction (principal); E11.9 Type 2 diabetes mellitus without complications; M79.601 Pain in right arm; E78.5 Hyperlipidemia, unspecified; E03.9 Hypothyroidism, unspecified; I10 Essential (primary) hypertension; Z95.0 Presence of cardiac pacemaker; Z86.79 Personal history of other diseases of the circulatory system
CPT/HCPCS: 36000; 36415; 71045; 80053; 80061; 82962; 83036; 83721; 83880; 84484; 85025; 93005; 93041; 93268; 96374; 99285; G0378; J2270; J2405; A9270-GY

== ENCOUNTER 2019-09-09 16:47 | Emergency (ER) | payer MEDICARE ==
--- NOTE | 2019-09-09 16:56 | ERPHSYRPT ---
- History of Present Illness Time Seen by Provider: 09/09/19 16:56 Source: patient Exam Limitations: no limitations Physician History: She is a 69-year-old female with several day history of flulike symptoms including myalgias arthralgias sore throat cough. Several days ago patient had some nausea vomiting diarrhea. She has had none in the last few days. Been eating or drinking well. There has them similar to hers. They live together. This patient has insulin-dependent diabetes, hypertension, COPD, SVT, hypothyroidism, pacemaker/defibrillator placement. She denies shortness of breath and she denies chest pain. She denies abdominal pain. Timing/Duration: day(s) (Several) Severity: mild Associated Symptoms: cough, loss of appetite, weakness, No shortness of breath, No chest pain Allergies/Adverse Reactions: aspirin Allergy (Verified 09/09/19 17:05) clorazepate dipotassium [From Tranxene T-Tab] Allergy (Verified 09/09/19 17:05) codeine [Codeine] Allergy (Verified 09/09/19 17:05) hydrocodone bitartrate [From Vicoprofen] Allergy (Verified 09/09/19 17:05) ibuprofen [From Vicoprofen] Allergy (Verified 09/09/19 17:05) latex Allergy (Verified 09/09/19 17:05) Penicillins Allergy (Verified 09/09/19 17:05) Home Medications: Rivaroxaban [Xarelto] 15 mg PO EVENING MEAL 12/17/12 [History] Atorvastatin Calcium [Lipitor] 80 mg PO QHS 09/02/18 [History] Exenatide Microspheres [Bydureon Bcise] 2 mg SQ WEEKLY 09/02/18 [History] Ezetimibe 10 mg PO QHS 09/02/18 [History] Famotidine 20 mg [Pepcid 20 MG] 20 mg PO BID 09/02/18 [History] Furosemide 20 mg [Lasix 20 mg] 20 mg PO DAILY 09/02/18 [History] Hydralazine HCl 50 mg PO BID 09/02/18 [History] Losartan Potassium 50 mg PO DAILY 09/02/18 [History] Albuterol 2.5 mg/3 ml Neb [Proventil 2.5 mg/3 ml Neb] 2.5 mg IH QID PRN [History] Insulin Lispro [Humalog] 0 unit SQ UD 05/07/19 [History] Insulin Lispro [Humalog] 14 unit SQ EVENING MEAL 05/07/19 [History] Insulin Lispro [Humalog] 16 unit SQ LUNCH 05/07/19 [History] Insulin Lispro [Humalog] 20 unit SQ BREAKFAST 05/07/19 [History] Levothyroxine Sodium [Synthroid] 75 mcg PO DAILY 05/07/19 [History] Hx Tetanus, Diphtheria Vaccination/Date Given: Yes Hx Influenza Vaccination/Date Given: No Hx Pneumococcal Vaccination/Date Given: Yes - Review of Systems Constitutional: No Symptoms Eyes: No Symptoms Ears, Nose, & Throat: No Symptoms Respiratory: Cough Cardiac: No Symptoms, No Chest Pain Abdominal/Gastrointestinal: No Symptoms Genitourinary Symptoms: No Symptoms Musculoskeletal: Arthralgias, Myalgias Skin: No Symptoms Neurological: No Symptoms Psychological: No Symptoms Endocrine: No Symptoms Hematologic/Lymphatic: No Symptoms Immunological/Allergic: No Symptoms All Other Systems: Reviewed and Negative - Past Medical History Pertinent Past Medical History: Yes Neurological History: No Pertinent History ENT History: No Pertinent History Cardiac History: Hypertension, Other Respiratory History: COPD Endocrine Medical History: Diabetes Type II Musculoskeletal History: Other GI Medical History: Cirrhosis History: No Pertinent History Psycho-Social History: Depression Female Reproductive Disorders: No Pertinent History Other Medical History: hx of svt and had other arrythmias and 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 hand. right foot left foot. heart ablation. thyroidectomy - Social History Smoking Status: Never smoker Exposure to second hand smoke: No Alcohol Use: None Drug Use: none Patient Lives Alone: No Significant Family History: diabetes, hypertension - Nursing Vital Signs Nursing Vital Signs: Initial Vital Signs Temperature 97.8 F 09/09/19 17:05 Pulse Rate 62 09/09/19 17:05 Respiratory Rate 18 09/09/19 17:05 Blood Pressure 111/61 09/09/19 17:05 O2 Sat by Pulse Oximetry 100 09/09/19 17:05 Pain Scale Pain Intensity 0 - Physical Exam General Appearance: no apparent distress, alert, anxiety Eye Exam: PERRL/EOMI Ears, Nose, Throat Exam: normal ENT inspection, moist mucous membranes Neck Exam: normal inspection, non-tender, supple, full range of motion Respiratory Exam: normal breath sounds, lungs clear, airway intact, No chest tenderness, No respiratory distress Cardiovascular Exam: regular rate/rhythm, normal heart sounds, normal peripheral pulses Gastrointestinal/Abdomen Exam: soft, normal bowel sounds, No tenderness Pelvic Exam: not done Rectal Exam: not done Back Exam: normal inspection, normal range of motion, No CVA tenderness, No vertebral tenderness Extremity Exam: normal inspection, normal range of motion, pelvis stable Neurologic Exam: alert, oriented x 3, cooperative, collections rep II-XII nml as tested Skin Exam: normal color, warm, dry Lymphatic Exam: No adenopathy SpO2 Interpretation: normal O2 Delivery: Room Air - Course Nursing assessment & vital signs reviewed: Yes Ordered Tests: Active Orders 24 hr Category Date Time Status IV Insertion STAT Care 09/09/19 18:04 Active CHEST 1 VIEW (PORTABLE) Stat Exams 09/09/19 18:05 Taken AMYLASE Stat Lab 09/09/19 18:04 Completed CBC W DIFF Stat Lab 09/09/19 18:04 Completed CMP Stat Lab 09/09/19 18:04 Completed LIPASE Stat Lab 09/09/19 18:04 Completed Lactic Acid Stat Lab 09/09/19 18:55 Completed Lactic Acid Stat Lab 09/09/19 21:00 Completed Manual Differential NC Stat Lab 09/09/19 18:04 Completed UA W/RFX UR CULTURE Stat Lab 09/09/19 19:58 Completed Medication Summary Discontinued Medications Generic Name Dose Route Start Last Admin Trade Name Freq PRN Reason Stop Dose Admin Sodium Chloride 1,000 mls @ 999 mls/hr 09/09/19 18:04 09/09/19 18:11 Sodium Chloride 0.9% 1000 Ml IV 09/09/19 19:04 999 mls/hr .Q1H1M STA Administration Sodium Chloride Confirm 09/09/19 18:09 Sodium Chloride 0.9% 1000 Ml Administered 09/09/19 18:10 Dose 1,000 mls @ ud .ROUTE .STK-MED ONE Sodium Chloride 1,000 mls @ 999 mls/hr 09/09/19 19:23 09/09/19 19:30 Sodium Chloride 0.9% 1000 Ml IV 09/09/19 20:23 999 mls/hr .Q1H1M STA Administration Sodium Chloride Confirm 09/09/19 19:29 Sodium Chloride 0.9% 1000 Ml Administered 09/09/19 19:30 Dose 1,000 mls @ ud .ROUTE .STK-MED ONE Ondansetron HCl 4 mg 09/09/19 18:04 09/09/19 18:13 Zofran 4 Mg/2 Ml Vial IV 09/09/19 18:05 4 mg STAT ONE Administration Ondansetron HCl Confirm 09/09/19 18:09 Zofran 4 Mg/2 Ml Vial Administered 09/09/19 18:10 Dose 4 mg .ROUTE .STK-Open-Xchange ONE Oseltamivir Phosphate 75 mg 09/09/19 19:10 09/09/19 19:17 Tamiflu 75mg Capsule PO 09/09/19 19:11 75 mg STAT ONE Administration Oseltamivir Phosphate Confirm 09/09/19 19:17 Tamiflu 75mg Capsule Administered 09/09/19 19:18 Dose 75 mg PO .STK-Open-Xchange ONE Lab/Rad Data: Laboratory Result Diagrams 09/09/19 18:04 09/09/19 18:04 Laboratory Results 09/09/19 09/09/19 09/09/19 Range/Units 21:00 19:58 18:55 WBC (4.0-10.5) K/mm3 RBC (4.1-5.4) M/mm3 Hgb (12.0-16.0) gm/dl Hct (35-47) % MCV (78-100) fl MCH (26-32) pg MCHC (32-36) g/dl RDW (11.5-14.0) % Plt Count (150-450) K/mm3 MPV (7.5-11.0) fl Sodium (137-145) mmol/L Potassium (3.5-5.1) mmol/L Chloride (98-107) mmol/L Carbon Dioxide (22-30) mmol/L Anion Gap (5-15) MEQ/L BUN (7-17) mg/dL Creatinine (0.52-1.04) mg/dL Estimated GFR ML/MIN Glucose (74-106) mg/dL Lactic Acid 2.0 2.7 H (0.4-2.0) Calcium (8.4-10.2) mg/dL Total Bilirubin (0.2-1.3) mg/dL AST (14-36) U/L ALT (0-35) U/L Alkaline Phosphatase (38-126) U/L Serum Total Protein (6.3-8.2) g/dL Albumin (3.5-5.0) g/dL Amylase (30-110) U/L Lipase (23-300) U/L Urine Color YELLOW (YELLOW) Urine Appearance CLEAR (CLEAR) Urine pH 6.0 (5-6) Ur Specific [place] 1.009 (1.005-1.025) Urine Protein NEGATIVE (Negative) Urine Ketones NEGATIVE (NEGATIVE) Urine Blood NEGATIVE (0-5) Brennan/ul Urine Nitrite NEGATIVE (NEGATIVE) Urine Bilirubin NEGATIVE (NEGATIVE) Urine Urobilinogen NEGATIVE (0-1) mg/dL Ur Leukocyte Esterase NEGATIVE (NEGATIVE) Urine WBC (Auto) 3-5 (0-5) /HPF Urine RBC (Auto) NONE (0-2) /HPF U Hyaline Cast (Auto) 6-10 (0-2) /LPF U Epithel Cells (Auto) NONE (FEW) /HPF Urine Bacteria (Auto) NONE (NEGATIVE) /HPF Urine Mucus (Auto) SLIGHT (NEGATIVE) /HPF Urine Culture Reflexed NO (NO) Urine Glucose >=500 (NEGATIVE) mg/dL Influenza Type A Ag (NEGATIVE) Influenza Type B Ag (NEGATIVE) RSV (PCR) (Negative) Group A Strep Antibody (NEGATIVE) 09/09/19 09/09/19 09/09/19 Range/Units 18:25 18:04 18:04 WBC 5.0 (4.0-10.5) K/mm3 RBC 3.80 L (4.1-5.4) M/mm3 Hgb 11.6 L (12.0-16.0) gm/dl Hct 37.0 (35-47) % MCV 97.4 (78-100) fl MCH 30.5 (26-32) pg MCHC 31.4 L (32-36) g/dl RDW 17.0 H (11.5-14.0) % Plt Count 112 L (150-450) K/mm3 MPV 10.7 (7.5-11.0) fl Sodium 133 L (137-145) mmol/L Potassium 5.2 H (3.5-5.1) mmol/L Chloride 100 (98-107) mmol/L Carbon Dioxide 27 (22-30) mmol/L Anion Gap 12.0 (5-15) MEQ/L BUN 25 H (7-17) mg/dL Creatinine 1.28 H (0.52-1.04) mg/dL Estimated GFR 43.7 ML/MIN Glucose 274 H (74-106) mg/dL Lactic Acid (0.4-2.0) Calcium 8.8 (8.4-10.2) mg/dL Total Bilirubin 0.60 (0.2-1.3) mg/dL AST 36 (14-36) U/L ALT 18 (0-35) U/L Alkaline Phosphatase 99 (38-126) U/L Serum Total Protein 7.4 (6.3-8.2) g/dL Albumin 4.0 (3.5-5.0) g/dL Amylase 55 (30-110) U/L Lipase 185 (23-300) U/L Urine Color (YELLOW) Urine Appearance (CLEAR) Urine pH (5-6) Ur Specific [place] (1.005-1.025) Urine Protein (Negative) Urine Ketones (NEGATIVE) Urine Blood (0-5) Brennan/ul Urine Nitrite (NEGATIVE) Urine Bilirubin (NEGATIVE) Urine Urobilinogen (0-1) mg/dL Ur Leukocyte Esterase (NEGATIVE) Urine WBC (Auto) (0-5) /HPF Urine RBC (Auto) (0-2) /HPF U Hyaline Cast (Auto) (0-2) /LPF U Epithel Cells (Auto) (FEW) /HPF Urine Bacteria (Auto) (NEGATIVE) /HPF Urine Mucus (Auto) (NEGATIVE) /HPF Urine Culture Reflexed (NO) Urine Glucose (NEGATIVE) mg/dL Influenza Type A Ag POSITIVE (NEGATIVE) Influenza Type B Ag NEGATIVE (NEGATIVE) RSV (PCR) NEGATIVE (Negative) Group A Strep Antibody NEGATIVE (NEGATIVE) - Progress Progress: improved, re-examined Progress Note: 09/09/19 22:24 Chest x-ray reveals no acute process. Medical decision making: This patient has influenza A. Patient has no chest pain. She has had no recent vomiting or diarrhea. Her lactic acid level is now normal after 2 L of fluid. Patient is feeling better. Patient has no abdominal pain and she has no other complaints. Patient's carbon dioxide level and anionic gap number are within normal limits. Patient's vital signs are stable and therefore we will send her home with a prescription for Tamiflu 09/09/19 22:30 Counseled pt/family regarding: lab results, diagnosis, need for follow-up, rad results - Departure Departure Disposition: Home Clinical Impression: Influenza A Condition: Stable Critical Care Time: No Referrals: ANALI MONTGOMERY [Primary Care Provider] - Additional Instructions: Drink plenty of fluids. Take your medications as prescribed. Follow-up with your primary care physician as needed. Prescriptions: Ondansetron HCl [Zofran] 4 mg PO TID PRN #10 tablet PRN Reason: Nausea/Vomiting Oseltamivir 75 mg [Tamiflu 75MG Capsule] 75 mg PO BID #10 cap
[2019-09-09 17:18] VITALS: O2SAT 100
[2019-09-09] MEDS ORDERED: Zofran 4 MG/2 ML VIAL IV ONE (18:04)
[2019-09-09] MEDS ORDERED: Sodium Chloride 0.9% 1000 ML 1,000 ML IV STA ×2 (18:04→19:23)
[2019-09-09] MEDS ORDERED: Zofran 4 MG/2 ML VIAL ONE (18:09)
[2019-09-09] MEDS ORDERED: Sodium Chloride 0.9% 1000 ML 1,000 ML ONE ×2 (18:09→19:29)
[2019-09-09 18:12] LABS: Hemoglobin 11.6 gm/dl (12.0-16.0); Mean Cell Volume 97.4 fl (78-100); Mean Corpuscular Hemoglobin 30.5 pg (26-32); Mean Corpuscular Hgb Concent. 31.4 g/dl (32-36); Mean Platelet Volume 10.7 fl (7.5-11.0); Platelet Count 112 K/mm3 (150-450)
[2019-09-09 18:19] LABS: BILIRUBIN,TOTAL 0.6 mg/dL (0.2-1.3); Calcium 8.8 mg/dL (8.4-10.2); Creatinine 1 1.28 mg/dL (0.52-1.04); Potassium 5.2 mmol/L (3.5-5.1); Total Protein 7.4 g/dL (6.3-8.2)
[2019-09-09 18:52] LABS: Group A Strep NEGATIVE (NEGATIVE)
[2019-09-09 18:53] LABS: INFLUENZA A POSITIVE (NEGATIVE); INFLUENZA B NEGATIVE (NEGATIVE); RESPIRATORY SYNCTIAL VIRUS NEGATIVE (Negative)
[2019-09-09] MEDS ORDERED: Tamiflu 75MG Capsule PO ONE ×2 (19:10→19:17)
[2019-09-09 20:03] LABS: Appearance CLEAR (CLEAR); Bilirubin NEGATIVE (NEGATIVE); Blood NEGATIVE Ery/ul (0-5); Glucose >=500 mg/dL (NEGATIVE); Ketones NEGATIVE (NEGATIVE); Leukocyte Esterase NEGATIVE (NEGATIVE); Mucus SLIGHT /HPF (NEGATIVE); Nitrite NEGATIVE (NEGATIVE); Protein,Urine Dip NEGATIVE (Negative); Specific Gravity 1.009 (1.005-1.025); Urobilinogen NEGATIVE mg/dL (0-1)
[2019-09-09 22:46] VITALS: BP 126/56; PULSE 60
[2019-09-09 22:52] LABS: Eosinophil 2 % (0.00-3.0); Lymphocytes 20 % (24-44); Monocyte 9 % (0.0-12.0); Neutrophils 69 % (36.0-66.0); Platelet Estimate NORMAL (NORMAL); Total Cells Counted 100
--- NOTE | 2019-09-10 08:46 | XRAY ---
Indication: Cough, short of breath, and weakness. Comparison: May 06, 2019. Portable chest again demonstrates chronic lung markings without focal infiltrate, consolidation, or large effusion. Heart remains enlarged again with left sided pacemaker. Bony thorax intact again with mild osteopenia and degenerative changes. Impression: Stable nonacute chest with chronic features.
== END 2019-09-09 22:48 | disposition home or self-care (01) ==
LOC: ED 16:47
DX: J09.X2 Influenza due to identified novel influenza A virus with other respiratory manifestations (principal); I10 Essential (primary) hypertension; J44.9 Chronic obstructive pulmonary disease, unspecified; E11.9 Type 2 diabetes mellitus without complications; Z79.899 Other long term (current) drug therapy; R11.2 Nausea with vomiting, unspecified; R19.7 Diarrhea, unspecified; I47.1 Supraventricular tachycardia; E03.9 Hypothyroidism, unspecified; Z95.0 Presence of cardiac pacemaker
CPT/HCPCS: 36000; 36415; 71045; 80053; 81001; 82150; 83605; 83690; 85025; 87631; 87651; 96360; 96361; 96374; 99284; J2405; A9270-GY

== ENCOUNTER 2021-07-21 12:08 | Inpatient (IN) | payer MEDICARE ==
[2021-07-21] MEDS ORDERED: D50W 50 ml Abboject IV ONE ×2 (12:14→12:56)
[2021-07-21] MEDS ORDERED: DEXTROSE 10% 250 ML 250 ML IV SCH (12:30)
--- NOTE | 2021-07-21 12:54 | XRAY ---
Indication: Weakness. Comparison: July 25, 2020. Portable chest demonstrates new patchy left base infiltrate versus atelectasis. Remaining lungs clear. Heart borderline enlarged again with left pacemaker. Bony thorax intact again with osteopenia and mild degenerative changes.
[2021-07-21 13:25] LABS: Hematocrit 39.1 % (35-47); Hemoglobin 12.5 gm/dl (12.0-16.0); Mean Cell Volume 99.7 fl (78-100); Mean Corpuscular Hemoglobin 31.9 pg (26-32); Mean Platelet Volume 8.9 fl (7.5-11.0); Platelet Count 158 K/mm3 (150-450); Red Blood Count 3.92 M/mm3 (4.1-5.4); Red Cell Distribution Width 16.8 % (11.5-14.0); White Blood Count 10.5 K/mm3 (4.0-10.5)
[2021-07-21 13:45] LABS: ALBUMIN 4.5 g/dL (3.5-5.0); ALKALINE PHOSPHATASE 94 U/L (38-126); BLOOD UREA NITROGEN 25 mg/dL (7-17); CHLORIDE 96 mmol/L (98-107); Calcium 9.1 mg/dL (8.4-10.2); Carbon Dioxide 29 mmol/L (22-30); Creatinine 1 0.91 mg/dL (0.52-1.04); EST GLOMERULAR FILTRATION RATE > 60.0 ML/MIN; Glucose 153 mg/dL (74-106); MAGNESIUM 2.3 mg/dL (1.6-2.3); NT PRO BNP 524 pg/mL (0-900); Potassium 4.7 mmol/L (3.5-5.1); SGOT/AST 28 U/L (14-36); SGPT/ALT 17 U/L (0-35); SODIUM 137 mmol/L (137-145); Total Protein 7.8 g/dL (6.3-8.2)
[2021-07-21] MEDS ORDERED: Sodium Chloride 0.9% 1000 ML 1,000 ML IV STA (13:52)
--- NOTE | 2021-07-21 13:53 | ERPHSYRPT ---
- History of Present Illness Time Seen by Provider: 07/21/21 12:09 Patient Subjective Stated Complaint: Pt was found very lethargic at home and EMS was called and her blood sugar was found to be 27 Triage Nursing Assessment: Pt brought to the ER by EMS, hypertensive, hypoglycemic, BS of 41, pt unable to answer questions, gave 25ml of D 50 and after a couple minutes pt began answering questions, pt lives with her 97 year old mother who takes care of her and the pt was brought in with a soaked depends and another diaper under it that was totally urine soaked and then several dede under that that were also slightly wet with urine, pts shirt was wet all the way up the back with urine, pt had a hospital bracelet on from [facility] from yesterday, denies pain, pt is a rt leg above the knee amputee and does not care for herself, pulses normal, skin cold and clammy Physician History: 71 years old female with history of multiple medical problems including diabetes mellitus with right above-knee amputation, pacemaker placement is brought in the ER by EMS with chief complaint of altered mental status. As per report patient was difficult to arouse and when EMS got in her blood sugar was 21, given D10 which did help blood sugar improving in 60s but again dropped to 40s on presentation in the ER and given 1/2 ampoule of 325 and continued with D10 infusion. Immediately after giving the 25 patient is more awake alert and oriented. Patient complaining of generalized weakness fatigue and tiredness. Able to move all 4 extremities and no obvious gross deficit. Denies any chest pain palpitations or shortness of breath. No fever or chills reported. Not a good historian and history is limited. Timing/Duration: today, improved Severity: moderate, severe Modifying Factors: Improves With: other Associated Symptoms: malaise, weakness Allergies/Adverse Reactions: aspirin Allergy (Verified 07/21/21 13:43) clorazepate dipotassium [From Tranxene T-Tab] Allergy (Verified 07/21/21 13:43) codeine [Codeine] Allergy (Verified 07/21/21 13:43) hydrocodone bitartrate [From Vicoprofen] Allergy (Verified 07/21/21 13:43) ibuprofen [From Vicoprofen] Allergy (Verified 07/21/21 13:43) latex Allergy (Verified 07/21/21 13:43) Penicillins Allergy (Verified 07/21/21 13:43) Home Medications: Rivaroxaban [Xarelto] 15 mg PO EVENING MEAL 12/17/12 [History] Atorvastatin Calcium [Lipitor] 80 mg PO QHS 09/02/18 [History] Exenatide Microspheres [Bydureon Bcise] 2 mg SQ WEEKLY 09/02/18 [History] Ezetimibe 10 mg PO QHS 09/02/18 [History] Famotidine 20 mg [Pepcid 20 MG] 20 mg PO BID 09/02/18 [History] Furosemide 20 mg [Lasix 20 mg] 20 mg PO DAILY 09/02/18 [History] Hydralazine HCl 50 mg PO BID 09/02/18 [History] Losartan Potassium 50 mg PO DAILY 09/02/18 [History] Albuterol 2.5 mg/3 ml Neb [Proventil 2.5 mg/3 ml Neb] 2.5 mg IH QID PRN 05/07/19 [History] Insulin Lispro [Humalog] 0 unit SQ UD 05/07/19 [History] Insulin Lispro [Humalog] 14 unit SQ EVENING MEAL 05/07/19 [History] Insulin Lispro [Humalog] 16 unit SQ LUNCH 05/07/19 [History] Insulin Lispro [Humalog] 20 unit SQ BREAKFAST 05/07/19 [History] Levothyroxine Sodium [Synthroid] 75 mcg PO DAILY 05/07/19 [History] Hx Tetanus, Diphtheria Vaccination/Date Given: Yes Hx Influenza Vaccination/Date Given: No Hx Pneumococcal Vaccination/Date Given: Yes Travel Risk - International Travel Have you traveled outside of the country in past 3 weeks: No - Coronavirus Screening Are you exhibiting any of the following symptoms?: No Close contact with a COVID-19 positive Pt in past 14-21 Days: No - Vaccine Status Have you recieved a Covid-19 vaccination: No - Review of Systems Constitutional: Fatigue, Weakness Eyes: No Symptoms Ears, Nose, & Throat: No Symptoms Respiratory: Cough Cardiac: No Symptoms Abdominal/Gastrointestinal: No Symptoms Genitourinary Symptoms: No Symptoms Skin: No Symptoms Endocrine: No Symptoms Hematologic/Lymphatic: No Symptoms - Past Medical History Pertinent Past Medical History: Yes Neurological History: No Pertinent History ENT History: No Pertinent History Cardiac History: Hypertension, Other Respiratory History: COPD Endocrine Medical History: Diabetes Type II Musculoskeletal History: Other GI Medical History: Cirrhosis History: No Pertinent History Psycho-Social History: Depression Female Reproductive Disorders: No Pertinent History Other Medical History: hx of svt and had other arrythmias and 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 hand. right foot left foot. heart ablation. thyroidectomy - Social History Smoking Status: Never smoker Exposure to second hand smoke: No Alcohol Use: None Drug Use: none Patient Lives Alone: No Significant Family History: diabetes, hypertension - Nursing Vital Signs Nursing Vital Signs: Initial Vital Signs Pulse Rate 87 07/21/21 12:09 Blood Pressure 167/96 07/21/21 12:09 O2 Sat by Pulse Oximetry 100 07/21/21 12:09 Pain Scale Pain Intensity 0 - Physical Exam General Appearance: no apparent distress, alert, lethargy Eye Exam: PERRL/EOMI, eyes nml inspection Ears, Nose, Throat Exam: normal ENT inspection, dry mucous membranes Neck Exam: normal inspection, non-tender, supple, full range of motion Respiratory Exam: rhonchi Cardiovascular Exam: regular rate/rhythm, normal heart sounds Gastrointestinal/Abdomen Exam: soft, normal bowel sounds, No tenderness Back Exam: normal inspection Extremity Exam: other (Right above-knee amputation) Neurologic Exam: alert, oriented x 3, cooperative, 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 job 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 nml as tested, No normal mood/affect, No motor deficits Skin Exam: normal color SpO2 Interpretation: normal SpO2: 100 O2 Delivery: Room Air - Course EKG Interpreted by Me: RATE (95, paced), Left [place] Deviation, Non-specific ST Changes Ordered Tests: Active Orders 24 hr Category Date Time Status Schedule [facility] STAT Care 07/21/21 12:23 Active EKG-ER Only STAT Care 07/21/21 12:22 Active Bishop [Catheter-[place] Bishop] STAT Care 07/21/21 12:55 Active IV Insertion STAT Care 07/21/21 12:22 Active CHEST 1 VIEW (PORTABLE) Stat Exams 07/21/21 12:22 Completed BLOOD CULTURE Stat Lab 07/21/21 13:01 Received CBC W DIFF Stat Lab 07/21/21 13:12 Completed CMP Stat Lab 07/21/21 13:12 Completed CULTURE,URINE Stat Lab 07/21/21 12:44 Received Lactic Acid Stat Lab 07/21/21 12:22 Completed Lactic Acid Stat Lab 07/21/21 15:22 Completed MAGNESIUM Stat Lab 07/21/21 13:12 Completed Manual Differential NC Stat Lab 07/21/21 13:12 Completed NT PRO BNP Stat Lab 07/21/21 13:12 Completed POCT GLUCOSE Stat Lab 07/21/21 12:17 Completed POCT GLUCOSE Stat Lab 07/21/21 12:53 Completed TROPONIN Q3H Lab 07/22/21 00:30 Ordered TROPONIN Q3H Lab 07/21/21 13:12 Completed TROPONIN Q3H Lab 07/21/21 15:35 Completed TROPONIN Q3H Lab 07/21/21 18:30 Ordered TROPONIN Q3H Lab 07/21/21 21:30 Ordered UA W/RFX UR CULTURE Stat Lab 07/21/21 12:44 Completed Medication Summary Generic Name Dose Route Start Last Admin Trade Name Freq PRN Reason Stop Dose Admin Dextrose 250 mls @ 30 mls/hr 07/21/21 12:30 Dextrose 10% 250 Ml IV 08/20/21 12:29 .Q8H20M DESI Discontinued Medications Generic Name Dose Route Start Last Admin Trade Name Freq PRN Reason Stop Dose Admin Dextrose Confirm 07/21/21 12:14 Dextrose 50%-Water 50 Ml Abboject Administered 07/21/21 12:15 Dose 50 ml IV .STK-MED ONE Dextrose 50 ml 07/21/21 12:56 Dextrose 50%-Water 50 Ml Abboject IV 07/21/21 12:57 STAT ONE Sodium Chloride 1,000 mls @ 999 mls/hr 07/21/21 13:52 07/21/21 16:40 Sodium Chloride 0.9% 1000 Ml IV 07/21/21 14:52 Infused .Q1H1M STA Infusion Levofloxacin/Dextrose 500 mg in 100 mls @ 100 mls/hr 07/21/21 14:16 07/21/21 16:40 Levofloxacin 500mg/100ml D5w IV 07/21/21 15:15 Infused STAT STA Infusion Sodium Chloride Confirm 07/21/21 15:15 Sodium Chloride 0.9% 1000 Ml Administered 07/21/21 15:16 Dose 1,000 mls @ ud .ROUTE .STK-MED ONE Levofloxacin/Dextrose Confirm 07/21/21 15:16 Levofloxacin 500mg/100ml D5w Administered 07/21/21 15:17 Dose 500 mg in 100 mls @ ud IV .STK-MED ONE Lab/Rad Data: Laboratory Result Diagrams 07/21/21 13:12 07/21/21 13:12 Laboratory Results 07/21/21 07/21/21 07/21/21 Range/Units 15:35 15:22 13:12 WBC (4.0-10.5) K/mm3 RBC (4.1-5.4) M/mm3 Hgb (12.0-16.0) gm/dl Hct (35-47) % MCV (78-100) fl MCH (26-32) pg MCHC (32-36) g/dl RDW (11.5-14.0) % Plt Count (150-450) K/mm3 MPV (7.5-11.0) fl Segmented Neutrophils (36.0-66.0) % Lymphocytes (Manual) (24-44) % Monocytes (Manual) (0.0-12.0) % Eosinophils (Manual) (0.00-3.0) % Platelet Estimate (NORMAL) RBC Morphology Sodium (137-145) mmol/L Potassium (3.5-5.1) mmol/L Chloride (98-107) mmol/L Carbon Dioxide (22-30) mmol/L Anion Gap (5-15) MEQ/L BUN (7-17) mg/dL Creatinine (0.52-1.04) mg/dL Estimated GFR ML/MIN Glucose (74-106) mg/dL POC Glucometer (50 to 500) mg/dL Lactic Acid 2.2 H (0.4-2.0) Calcium (8.4-10.2) mg/dL Magnesium (1.6-2.3) mg/dL Total Bilirubin (0.2-1.3) mg/dL AST (14-36) U/L ALT (0-35) U/L Alkaline Phosphatase (38-126) U/L Troponin I 0.038 H* 0.042 H* (0.000-0.034) ng/mL NT-Pro-B Natriuret Pep (0-900) pg/mL Serum Total Protein (6.3-8.2) g/dL Albumin (3.5-5.0) g/dL Urine Color (YELLOW) Urine Appearance (CLEAR) Urine pH (5-6) Ur Specific [place] (1.005-1.025) Urine Protein (Negative) Urine Ketones (NEGATIVE) Urine Blood (0-5) Brennan/ul Urine Nitrite (NEGATIVE) Urine Bilirubin (NEGATIVE) Urine Urobilinogen (0-1) mg/dL Ur Leukocyte Esterase (NEGATIVE) Urine WBC (Auto) (0-5) /HPF Urine RBC (Auto) (0-2) /HPF U Epithel Cells (Auto) (FEW) /HPF Urine Bacteria (Auto) (NEGATIVE) /HPF Urine Mucus (Auto) (NEGATIVE) /HPF Urine Culture Reflexed (NO) Urine Glucose (NEGATIVE) mg/dL 07/21/21 07/21/21 07/21/21 Range/Units 13:12 13:12 12:53 WBC 10.5 (4.0-10.5) K/mm3 RBC 3.92 L (4.1-5.4) M/mm3 Hgb 12.5 (12.0-16.0) gm/dl Hct 39.1 (35-47) % MCV 99.7 (78-100) fl MCH 31.9 (26-32) pg MCHC 32.0 (32-36) g/dl RDW 16.8 H (11.5-14.0) % Plt Count 158 (150-450) K/mm3 MPV 8.9 (7.5-11.0) fl Segmented Neutrophils 89 H (36.0-66.0) % Lymphocytes (Manual) 5 L (24-44) % Monocytes (Manual) 5 (0.0-12.0) % Eosinophils (Manual) 1 (0.00-3.0) % Platelet Estimate NORMAL (NORMAL) RBC Morphology NORMAL Sodium 137 (137-145) mmol/L Potassium 4.7 (3.5-5.1) mmol/L Chloride 96 L (98-107) mmol/L Carbon Dioxide 29 (22-30) mmol/L Anion Gap 16.0 H (5-15) MEQ/L BUN 25 H (7-17) mg/dL Creatinine 0.91 (0.52-1.04) mg/dL Estimated GFR > 60.0 ML/MIN Glucose 153 H (74-106) mg/dL POC Glucometer 93 (50 to 500) mg/dL Lactic Acid (0.4-2.0) Calcium 9.1 (8.4-10.2) mg/dL Magnesium 2.3 (1.6-2.3) mg/dL Total Bilirubin 0.50 (0.2-1.3) mg/dL AST 28 (14-36) U/L ALT 17 (0-35) U/L Alkaline Phosphatase 94 (38-126) U/L Troponin I (0.000-0.034) ng/mL NT-Pro-B Natriuret Pep 524 (0-900) pg/mL Serum Total Protein 7.8 (6.3-8.2) g/dL Albumin 4.5 (3.5-5.0) g/dL Urine Color (YELLOW) Urine Appearance (CLEAR) Urine pH (5-6) Ur Specific [place] (1.005-1.025) Urine Protein (Negative) Urine Ketones (NEGATIVE) Urine Blood (0-5) Brennan/ul Urine Nitrite (NEGATIVE) Urine Bilirubin (NEGATIVE) Urine Urobilinogen (0-1) mg/dL Ur Leukocyte Esterase (NEGATIVE) Urine WBC (Auto) (0-5) /HPF Urine RBC (Auto) (0-2) /HPF U Epithel Cells (Auto) (FEW) /HPF Urine Bacteria (Auto) (NEGATIVE) /HPF Urine Mucus (Auto) (NEGATIVE) /HPF Urine Culture Reflexed (NO) Urine Glucose (NEGATIVE) mg/dL 07/21/21 07/21/21 07/21/21 Range/Units 12:44 12:22 12:17 WBC (4.0-10.5) K/mm3 RBC (4.1-5.4) M/mm3 Hgb (12.0-16.0) gm/dl Hct (35-47) % MCV (78-100) fl MCH (26-32) pg MCHC (32-36) g/dl RDW (11.5-14.0) % Plt Count (150-450) K/mm3 MPV (7.5-11.0) fl Segmented Neutrophils (36.0-66.0) % Lymphocytes (Manual) (24-44) % Monocytes (Manual) (0.0-12.0) % Eosinophils (Manual) (0.00-3.0) % Platelet Estimate (NORMAL) RBC Morphology Sodium (137-145) mmol/L Potassium (3.5-5.1) mmol/L Chloride (98-107) mmol/L Carbon Dioxide (22-30) mmol/L Anion Gap (5-15) MEQ/L BUN (7-17) mg/dL Creatinine (0.52-1.04) mg/dL Estimated GFR ML/MIN Glucose (74-106) mg/dL POC Glucometer 41 L* (50 to 500) mg/dL Lactic Acid 3.4 H (0.4-2.0) Calcium (8.4-10.2) mg/dL Magnesium (1.6-2.3) mg/dL Total Bilirubin (0.2-1.3) mg/dL AST (14-36) U/L ALT (0-35) U/L Alkaline Phosphatase (38-126) U/L Troponin I (0.000-0.034) ng/mL NT-Pro-B Natriuret Pep (0-900) pg/mL Serum Total Protein (6.3-8.2) g/dL Albumin (3.5-5.0) g/dL Urine Color YELLOW (YELLOW) Urine Appearance CLOUDY (CLEAR) Urine pH 5.0 (5-6) Ur Specific [place] 1.031 (1.005-1.025) Urine Protein NEGATIVE (Negative) Urine Ketones NEGATIVE (NEGATIVE) Urine Blood NEGATIVE (0-5) Brennan/ul Urine Nitrite NEGATIVE (NEGATIVE) Urine Bilirubin NEGATIVE (NEGATIVE) Urine Urobilinogen 4 (0-1) mg/dL Ur Leukocyte Esterase LARGE (NEGATIVE) Urine WBC (Auto) >100 (0-5) /HPF Urine RBC (Auto) 3-5 (0-2) /HPF U Epithel Cells (Auto) NONE (FEW) /HPF Urine Bacteria (Auto) FEW (NEGATIVE) /HPF Urine Mucus (Auto) SLIGHT (NEGATIVE) /HPF Urine Culture Reflexed YES (NO) Urine Glucose 50 (NEGATIVE) mg/dL - Progress Progress: improved Progress Note: 07/21/21 17:09 71 years old is evaluated for altered mental status secondary to hypoglycemia. On presentation her blood glucose was dropping again, given half ampule of D50 IV and it started to improve and continue with D10. Given fluid bolus as well. Work-up showed normal white count, elevated lactate of 3.4 which improved after fluids to 2.2. Given dose of IV antibiotics. EKG showed paced rhythm and initial troponin 0.042 which improved on recheck 2.038. Patient denies any chest pain. I believe this is hyperglycemia related to stress. Discussed with , reviewed history, work-up and patient is accepted for admission. 07/21/21 17:10 Will see patient in: hospital (observation) Counseled pt/family regarding: lab results, diagnosis, rad results - Departure Departure Disposition: Observation Clinical Impression: Elevated troponin, Hypoglycemia, Sepsis due to pneumonia Condition: Stable Critical Care Time: No Referrals: [facility] [Primary Care Provider] - Follow up/PCP as directed
[2021-07-21 14:12] LABS: Appearance CLOUDY (CLEAR); Bacteria FEW /HPF (NEGATIVE); Bilirubin NEGATIVE (NEGATIVE); Blood NEGATIVE Ery/ul (0-5); Glucose 50 mg/dL (NEGATIVE); Ketones NEGATIVE (NEGATIVE); Leukocyte Esterase LARGE (NEGATIVE); Mucus SLIGHT /HPF (NEGATIVE); Nitrite NEGATIVE (NEGATIVE); Protein,Urine Dip NEGATIVE (Negative); Specific Gravity 1.031 (1.005-1.025); Urobilinogen 4 mg/dL (0-1); WBC >100 /HPF (0-5)
[2021-07-21] MEDS ORDERED: Levofloxacin 500MG/100ML D5W 500 MG/100 ML BAG IV STA (14:16)
[2021-07-21] MEDS ORDERED: Sodium Chloride 0.9% 1000 ML 1,000 ML ONE (15:15)
[2021-07-21] MEDS ORDERED: Levofloxacin 500MG/100ML D5W 500 MG/100 ML BAG IV ONE (15:16)
[2021-07-21 15:23] LABS: Eosinophil 1 % (0.00-3.0); Lymphocytes 5 % (24-44); Monocyte 5 % (0.0-12.0); Neutrophils 89 % (36.0-66.0); Platelet Estimate NORMAL (NORMAL); Total Cells Counted 100
[2021-07-21 17:01] LABS: INFLUENZA A NEGATIVE (NEGATIVE); INFLUENZA B NEGATIVE (NEGATIVE); RESPIRATORY SYNCTIAL VIRUS NEGATIVE (Negative); SARS-CoV-2 Xpert Express NEGATIVE (NEGATIVE)
--- NOTE | 2021-07-21 18:07 | XRAY ---
Indication: Acute mental status change. Diabetic with high blood sugar. Multiple contiguous axial images obtained through the head without contrast. Comparison: December 17, 2012. Age-appropriate global atrophy and mild periventricular degenerative micro-ischemia bilaterally. Remote lacunar infarct right external capsule. No acute intracranial hemorrhage, abnormal extra-axial fluid collection, or mass effect. Fourth ventricle is midline without hydrocephalus. Bony calvarium intact. Visualized paranasal sinuses and mastoid air cells are clear. Impression: Nonacute senile brain with remote lacunar infarct right external capsule.
[2021-07-21] MEDS ORDERED: DUONEB 0.5-3 MG/3 ml Neb IH PRN (18:23)
[2021-07-21] MEDS ORDERED: ZOFRAN ODT 4 MG PO PRN (21:13)
[2021-07-21] MEDS ORDERED: ZOCOR 20MG PO ONE (22:00)
[2021-07-21] MEDS: Zetia 10 MG PO SCH (22:18)
[2021-07-21] MEDS: Apresoline 25 MG TABLET PO SCH (22:18)
[2021-07-21] MEDS: Pepcid 20 MG PO SCH (22:19)
[2021-07-22 01:52] LABS: Hematocrit 34.3 % (35-47); Hemoglobin 10.9 gm/dl (12.0-16.0); Mean Corpuscular Hemoglobin 31.8 pg (26-32); Mean Corpuscular Hgb Concent. 31.8 g/dl (32-36); Mean Platelet Volume 8.7 fl (7.5-11.0); Platelet Count 150 K/mm3 (150-450); Red Blood Count 3.43 M/mm3 (4.1-5.4); Red Cell Distribution Width 16.7 % (11.5-14.0); White Blood Count 7.6 K/mm3 (4.0-10.5)
[2021-07-22 02:42] LABS: ALBUMIN 3.4 g/dL (3.5-5.0); ALKALINE PHOSPHATASE 83 U/L (38-126); ANION GAP 12.5 MEQ/L (5-15); BLOOD UREA NITROGEN 19 mg/dL (7-17); CHLORIDE 100 mmol/L (98-107); Calcium 8.3 mg/dL (8.4-10.2); Carbon Dioxide 24 mmol/L (22-30); Creatinine 1 0.85 mg/dL (0.52-1.04); EST GLOMERULAR FILTRATION RATE > 60.0 ML/MIN; Glucose 141 mg/dL (74-106); Potassium 4.3 mmol/L (3.5-5.1); SGOT/AST 23 U/L (14-36); SGPT/ALT 13 U/L (0-35); SODIUM 132 mmol/L (137-145); Total Protein 6.4 g/dL (6.3-8.2)
[2021-07-22 02:43] LABS: ANISOCYTOSIS 1+; Lymphocytes 18 % (24-44); Monocyte 8 % (0.0-12.0); Neutrophils 74 % (36.0-66.0); Platelet Estimate NORMAL (NORMAL); Total Cells Counted 100
[2021-07-22] MEDS: TYLENOL 325 MG PO PRN ×3 (03:58→19:31)
[2021-07-22] MEDS: Apresoline 25 MG TABLET PO SCH ×2 (09:41→21:05)
[2021-07-22] MEDS: PROTONIX 40 MG IV IV SCH (09:41)
[2021-07-22] MEDS: Pepcid 20 MG PO SCH ×2 (09:41→21:04)
[2021-07-22] MEDS ORDERED: Levofloxacin 500MG/100ML D5W 500 MG/100 ML BAG IV SCH (10:00)
[2021-07-22] MEDS: ULTRAM 50 MG PO PRN ×2 (11:35→18:01)
[2021-07-22] MEDS ORDERED: NON-FORMULARY ITEM (Ondansetron Hcl [Zofran] 4 MG Tablet) PO PRN (11:36)
[2021-07-22] MEDS ORDERED: NON-FORMULARY ITEM (Exenatide Microspheres [Bydureon Bcise] 2 MG/0.85 ML Auto.Injct) SQ SCH (11:45)
[2021-07-22] MEDS ORDERED: DRONABINOL 2.5 MG PO SCH (11:45)
[2021-07-22] MEDS ORDERED: ZOFRAN ODT 4 MG PO PRN (11:56)
[2021-07-22] MEDS ORDERED: PATIENT OWN MEDICATION SQ SCH (12:00)
[2021-07-22] MEDS ORDERED: NON-FORMULARY ITEM (Insulin Lispro 1 UNIT Ml) SQ SCH ×2 (12:00→18:00)
--- NOTE | 2021-07-22 12:02 | PCM.HP ---
History of Present Illness - Chief Complaint Chief Complaint: Sepsis pneumonia, hypoglycemia History of Present Illness: is a 71 year old female.with history of multiple medical problems including diabetes mellitus with right above-knee amputation, pacemaker placement is brought in the ER by EMS with chief complaint of altered mental status. As per report patient was difficult to arouse and when EMS got in her blood sugar was 21, given D10 which did help blood sugar improving in 60s but again dropped to 40s on presentation in the ER and given 1/2 ampoule of 325 and continued with D10 infusion. Immediately after giving the 25 patient is more awake alert and oriented. Patient complaining of generalized weakness fatigue and tiredness. Able to move all 4 extremities and no obvious gross deficit. Denies any chest pain palpitations or shortness of breath. No fever or chills reported. Not a good historian and history is limited. Timing/Duration: today, improved Severity: moderate, severe Modifying Factors: Improves With: other Associated Symptoms: malaise, weakness - Review of Systems Constitutional: No Fever, No Chills Eyes: No Symptoms Ears, Nose, & Throat: No Symptoms Respiratory: No Cough, No Short Of Breath Cardiac: No Chest Pain, No Edema, No Syncope Abdominal/Gastrointestinal: No Abdominal Pain, No Nausea, No Vomiting, No Diarrhea Genitourinary Symptoms: No Dysuria Musculoskeletal: Other (right above knee amputation, ulcer on left heel), No Back Pain, No Neck Pain Skin: No Rash Neurological: No Dizziness, No Focal Weakness, No Sensory Changes Psychological: No Symptoms Endocrine: No Symptoms Hematologic/Lymphatic: No Symptoms Immunological/Allergic: No Symptoms Medications & Allergies Home Medications: Home Medication List Rivaroxaban [Xarelto] 20 mg PO EVENING MEAL 12/17/12 [History Confirmed 07/21/21] Atorvastatin Calcium [Lipitor] 80 mg PO QHS 09/02/18 [History Confirmed 07/21/21] Exenatide Microspheres [Bydureon Bcise] 2 mg SQ WEEKLY 09/02/18 [History Confirmed 07/21/21] Ezetimibe 10 mg PO QHS 09/02/18 [History Confirmed 07/21/21] Famotidine 20 mg [Pepcid 20 MG] 20 mg PO BID 09/02/18 [History Confirmed 07/21/21] Furosemide 20 mg [Lasix 20 mg] 20 mg PO DAILY 09/02/18 [History Confirmed 07/21/21] Hydralazine HCl 50 mg PO BID 09/02/18 [History Confirmed 07/21/21] Losartan Potassium 50 mg PO DAILY 09/02/18 [History Confirmed 07/21/21] Albuterol 2.5 mg/3 ml Neb [Proventil 2.5 mg/3 ml Neb] 2.5 mg IH QID PRN 05/07/19 [History Confirmed 07/21/21] Insulin Lispro [Humalog] 7 unit SQ EVENING MEAL 05/07/19 [History Confirmed 07/21/21] Insulin Lispro [Humalog] 8 unit SQ LUNCH 05/07/19 [History Confirmed 07/21/21] Insulin Lispro [Humalog] 11 unit SQ BREAKFAST 05/07/19 [History Confirmed 07/21/21] Levothyroxine Sodium [Synthroid] 75 mcg PO DAILY 05/07/19 [History Confirmed 07/21/21] ondansetron HCL [Zofran] 4 mg PO TID PRN #10 tablet 09/09/19 [Rx Confirmed 07/21/21] dronabinoL [Marinol] 2.5 mg PO UD 07/21/21 [History Confirmed 07/21/21] Allergies/Adverse Reactions: Allergies Allergy/AdvReac Type Severity Reaction Status Date / Time aspirin Allergy Verified 07/21/21 13:43 clorazepate dipotassium Allergy Verified 07/21/21 13:43 [From Tranxene T-Tab] codeine [Codeine] Allergy Verified 07/21/21 13:43 hydrocodone bitartrate Allergy Verified 07/21/21 13:43 [From Vicoprofen] ibuprofen [From Vicoprofen] Allergy Verified 07/21/21 13:43 latex Allergy Verified 07/21/21 13:43 Penicillins Allergy Verified 07/21/21 13:43 - Past Medical History Past Medical History: Yes Neurological History: Stroke ENT History: Cataracts Cardiac History: Arrhythmia, Congestive Heart Failure, Deep Vein Thrombosis, High Cholesterol Respiratory History: CHF, COPD, Sleep Apnea Endocrine Medical History: Diabetes Type II, Thyroid Cancer Musculoskelatal History: Other GI Medical History: Colorectal Cancer History: No Pertinent History Pyscho-Social History: No Pertinent History Reproductive Disorders: No Pertinent History Comment: hx of svt and had other arrythmias and recently had a pacemaker/defib put in, brown lung - Female History Are you now?: No - Past Surgical History Past Surgical History: Yes Neuro Surgical History: No Pertinent History Cardiac History: Internal Defibrillator, Pacemaker Respiratory Surgery: No Pertinent History GI Surgical History: Bowel Surgery, Colon Resection Genitourinary Surgical Hx: No Pertinent History Musculskeletal Surgical Hx: Amputation Female Surgical History: Hysterectomy Other Surgical History: breast reduction. hand. right foot left foot. heart ablation. thyroidectomy - Social History Smoking Status: Never smoker Exposure to second hand smoke: No Alcohol: None Drug Use: none Significant Family History: diabetes, hypertension - Physical Exam Vital Signs: Vital Signs - 24 hr Temp Pulse Resp BP Pulse Ox 07/22/21 08:00 98.4 F 83 18 142/64 97 07/22/21 04:00 98.7 F 80 19 133/63 97 07/21/21 23:39 98.7 F 77 18 121/58 98 07/21/21 20:50 77 14 98 07/21/21 19:27 97.5 F 90 24 195/84 100 07/21/21 17:14 100 07/21/21 17:02 79 18 94 L 07/21/21 15:06 74 18 154/87 97 07/21/21 14:00 73 14 176/90 97 07/21/21 13:13 71 16 191/71 100 07/21/21 12:09 87 167/96 100 General Appearance: no apparent distress, alert Neurologic Exam: alert, oriented x 3, cooperative, normal mood/affect, nml cerebellar function, nml station & gait, sensation nml, No motor deficits Eye Exam: PERRL/EOMI, eyes nml inspection Ears, Nose, Throat Exam: normal ENT inspection, TMs normal, pharynx normal, moist mucous membranes Neck Exam: normal inspection, non-tender, supple, full range of motion Respiratory Exam: normal breath sounds, lungs clear, No respiratory distress Cardiovascular Exam: regular rate/rhythm, normal heart sounds, normal peripheral pulses Gastrointestinal/Abdomen Exam: soft, normal bowel sounds, No tenderness, No mass Back Exam: normal inspection, normal range of motion, No CVA tenderness, No vertebral tenderness Extremity Exam: normal inspection, normal range of motion, pelvis stable, other (necrotic ulcer on left heel, right above knee amputation) Skin Exam: normal color, warm, dry, No rash Lymphatic Exam: No adenopathy Results - Labs Lab/Micro Results: Lab Results-Last 24 Hours 07/21/21 07/21/21 07/21/21 Range/Units 12:17 12:22 12:44 WBC (4.0-10.5) K/mm3 RBC (4.1-5.4) M/mm3 Hgb (12.0-16.0) gm/dl Hct (35-47) % MCV (78-100) fl MCH (26-32) pg MCHC (32-36) g/dl RDW (11.5-14.0) % Plt Count (150-450) K/mm3 MPV (7.5-11.0) fl Segmented Neutrophils (36.0-66.0) % Lymphocytes (Manual) (24-44) % Monocytes (Manual) (0.0-12.0) % Eosinophils (Manual) (0.00-3.0) % Platelet Estimate (NORMAL) RBC Morphology Anisocytosis Sodium (137-145) mmol/L Potassium (3.5-5.1) mmol/L Chloride (98-107) mmol/L Carbon Dioxide (22-30) mmol/L Anion Gap (5-15) MEQ/L BUN (7-17) mg/dL Creatinine (0.52-1.04) mg/dL Estimated GFR ML/MIN Glucose (74-106) mg/dL POC Glucometer 41 L* (50 to 500) mg/dL Lactic Acid 3.4 H (0.4-2.0) Calcium (8.4-10.2) mg/dL Magnesium (1.6-2.3) mg/dL Total Bilirubin (0.2-1.3) mg/dL AST (14-36) U/L ALT (0-35) U/L Alkaline Phosphatase (38-126) U/L Troponin I (0.000-0.034) ng/mL NT-Pro-B Natriuret Pep (0-900) pg/mL Serum Total Protein (6.3-8.2) g/dL Albumin (3.5-5.0) g/dL Urine Color YELLOW (YELLOW) Urine Appearance CLOUDY (CLEAR) Urine pH 5.0 (5-6) Ur Specific [place] 1.031 (1.005-1.025) Urine Protein NEGATIVE (Negative) Urine Ketones NEGATIVE (NEGATIVE) Urine Blood NEGATIVE (0-5) Brennan/ul Urine Nitrite NEGATIVE (NEGATIVE) Urine Bilirubin NEGATIVE (NEGATIVE) Urine Urobilinogen 4 (0-1) mg/dL Ur Leukocyte Esterase LARGE (NEGATIVE) Urine WBC (Auto) >100 (0-5) /HPF Urine RBC (Auto) 3-5 (0-2) /HPF U Epithel Cells (Auto) NONE (FEW) /HPF Urine Bacteria (Auto) FEW (NEGATIVE) /HPF Urine Mucus (Auto) SLIGHT (NEGATIVE) /HPF Urine Culture Reflexed YES (NO) Urine Glucose 50 (NEGATIVE) mg/dL Influenza Type A Ag (NEGATIVE) Influenza Type B Ag (NEGATIVE) RSV (PCR) (Negative) SARS-CoV-2 (PCR) (NEGATIVE) 07/21/21 07/21/21 07/21/21 Range/Units 12:53 13:12 13:12 WBC 10.5 (4.0-10.5) K/mm3 RBC 3.92 L (4.1-5.4) M/mm3 Hgb 12.5 (12.0-16.0) gm/dl Hct 39.1 (35-47) % MCV 99.7 (78-100) fl MCH 31.9 (26-32) pg MCHC 32.0 (32-36) g/dl RDW 16.8 H (11.5-14.0) % Plt Count 158 (150-450) K/mm3 MPV 8.9 (7.5-11.0) fl Segmented Neutrophils 89 H (36.0-66.0) % Lymphocytes (Manual) 5 L (24-44) % Monocytes (Manual) 5 (0.0-12.0) % Eosinophils (Manual) 1 (0.00-3.0) % Platelet Estimate NORMAL (NORMAL) RBC Morphology NORMAL Anisocytosis Sodium 137 (137-145) mmol/L Potassium 4.7 (3.5-5.1) mmol/L Chloride 96 L (98-107) mmol/L Carbon Dioxide 29 (22-30) mmol/L Anion Gap 16.0 H (5-15) MEQ/L BUN 25 H (7-17) mg/dL Creatinine 0.91 (0.52-1.04) mg/dL Estimated GFR > 60.0 ML/MIN Glucose 153 H (74-106) mg/dL POC Glucometer 93 (50 to 500) mg/dL Lactic Acid (0.4-2.0) Calcium 9.1 (8.4-10.2) mg/dL Magnesium 2.3 (1.6-2.3) mg/dL Total Bilirubin 0.50 (0.2-1.3) mg/dL AST 28 (14-36) U/L ALT 17 (0-35) U/L Alkaline Phosphatase 94 (38-126) U/L Troponin I (0.000-0.034) ng/mL NT-Pro-B Natriuret Pep 524 (0-900) pg/mL Serum Total Protein 7.8 (6.3-8.2) g/dL Albumin 4.5 (3.5-5.0) g/dL Urine Color (YELLOW) Urine Appearance (CLEAR) Urine pH (5-6) Ur Specific [place] (1.005-1.025) Urine Protein (Negative) Urine Ketones (NEGATIVE) Urine Blood (0-5) Brennan/ul Urine Nitrite (NEGATIVE) Urine Bilirubin (NEGATIVE) Urine Urobilinogen (0-1) mg/dL Ur Leukocyte Esterase (NEGATIVE) Urine WBC (Auto) (0-5) /HPF Urine RBC (Auto) (0-2) /HPF U Epithel Cells (Auto) (FEW) /HPF Urine Bacteria (Auto) (NEGATIVE) /HPF Urine Mucus (Auto) (NEGATIVE) /HPF Urine Culture Reflexed (NO) Urine Glucose (NEGATIVE) mg/dL Influenza Type A Ag (NEGATIVE) Influenza Type B Ag (NEGATIVE) RSV (PCR) (Negative) SARS-CoV-2 (PCR) (NEGATIVE) 07/21/21 07/21/21 07/21/21 Range/Units 13:12 15:22 15:35 WBC (4.0-10.5) K/mm3 RBC (4.1-5.4) M/mm3 Hgb (12.0-16.0) gm/dl Hct (35-47) % MCV (78-100) fl MCH (26-32) pg MCHC (32-36) g/dl RDW (11.5-14.0) % Plt Count (150-450) K/mm3 MPV (7.5-11.0) fl Segmented Neutrophils (36.0-66.0) % Lymphocytes (Manual) (24-44) % Monocytes (Manual) (0.0-12.0) % Eosinophils (Manual) (0.00-3.0) % Platelet Estimate (NORMAL) RBC Morphology Anisocytosis Sodium (137-145) mmol/L Potassium (3.5-5.1) mmol/L Chloride (98-107) mmol/L Carbon Dioxide (22-30) mmol/L Anion Gap (5-15) MEQ/L BUN (7-17) mg/dL Creatinine (0.52-1.04) mg/dL Estimated GFR ML/MIN Glucose (74-106) mg/dL POC Glucometer (50 to 500) mg/dL Lactic Acid 2.2 H (0.4-2.0) Calcium (8.4-10.2) mg/dL Magnesium (1.6-2.3) mg/dL Total Bilirubin (0.2-1.3) mg/dL AST (14-36) U/L ALT (0-35) U/L Alkaline Phosphatase (38-126) U/L Troponin I 0.042 H* 0.038 H* (0.000-0.034) ng/mL NT-Pro-B Natriuret Pep (0-900) pg/mL Serum Total Protein (6.3-8.2) g/dL Albumin (3.5-5.0) g/dL Urine Color (YELLOW) Urine Appearance (CLEAR) Urine pH (5-6) Ur Specific [place] (1.005-1.025) Urine Protein (Negative) Urine Ketones (NEGATIVE) Urine Blood (0-5) Brennan/ul Urine Nitrite (NEGATIVE) Urine Bilirubin (NEGATIVE) Urine Urobilinogen (0-1) mg/dL Ur Leukocyte Esterase (NEGATIVE) Urine WBC (Auto) (0-5) /HPF Urine RBC (Auto) (0-2) /HPF U Epithel Cells (Auto) (FEW) /HPF Urine Bacteria (Auto) (NEGATIVE) /HPF Urine Mucus (Auto) (NEGATIVE) /HPF Urine Culture Reflexed (NO) Urine Glucose (NEGATIVE) mg/dL Influenza Type A Ag (NEGATIVE) Influenza Type B Ag (NEGATIVE) RSV (PCR) (Negative) SARS-CoV-2 (PCR) (NEGATIVE) 12/31/21 12/31/21 12/31/21 Range/Units 16:03 19:43 20:20 WBC (4.0-10.5) K/mm3 RBC (4.1-5.4) M/mm3 Hgb (12.0-16.0) gm/dl Hct (35-47) % MCV (78-100) fl MCH (26-32) pg MCHC (32-36) g/dl RDW (11.5-14.0) % Plt Count (150-450) K/mm3 MPV (7.5-11.0) fl Segmented Neutrophils (36.0-66.0) % Lymphocytes (Manual) (24-44) % Monocytes (Manual) (0.0-12.0) % Eosinophils (Manual) (0.00-3.0) % Platelet Estimate (NORMAL) RBC Morphology Anisocytosis Sodium (137-145) mmol/L Potassium (3.5-5.1) mmol/L Chloride (98-107) mmol/L Carbon Dioxide (22-30) mmol/L Anion Gap (5-15) MEQ/L BUN (7-17) mg/dL Creatinine (0.52-1.04) mg/dL Estimated GFR ML/MIN Glucose (74-106) mg/dL POC Glucometer (50 to 500) mg/dL Lactic Acid 1.2 (0.4-2.0) Calcium (8.4-10.2) mg/dL Magnesium (1.6-2.3) mg/dL Total Bilirubin (0.2-1.3) mg/dL AST (14-36) U/L ALT (0-35) U/L Alkaline Phosphatase (38-126) U/L Troponin I 0.038 H* (0.000-0.034) ng/mL NT-Pro-B Natriuret Pep (0-900) pg/mL Serum Total Protein (6.3-8.2) g/dL Albumin (3.5-5.0) g/dL Urine Color (YELLOW) Urine Appearance (CLEAR) Urine pH (5-6) Ur Specific [place] (1.005-1.025) Urine Protein (Negative) Urine Ketones (NEGATIVE) Urine Blood (0-5) Brennan/ul Urine Nitrite (NEGATIVE) Urine Bilirubin (NEGATIVE) Urine Urobilinogen (0-1) mg/dL Ur Leukocyte Esterase (NEGATIVE) Urine WBC (Auto) (0-5) /HPF Urine RBC (Auto) (0-2) /HPF U Epithel Cells (Auto) (FEW) /HPF Urine Bacteria (Auto) (NEGATIVE) /HPF Urine Mucus (Auto) (NEGATIVE) /HPF Urine Culture Reflexed (NO) Urine Glucose (NEGATIVE) mg/dL Influenza Type A Ag NEGATIVE (NEGATIVE) Influenza Type B Ag NEGATIVE (NEGATIVE) RSV (PCR) NEGATIVE (Negative) SARS-CoV-2 (PCR) NEGATIVE (NEGATIVE) 07/21/21 07/21/21 07/22/21 Range/Units 21:20 23:30 01:30 WBC (4.0-10.5) K/mm3 RBC (4.1-5.4) M/mm3 Hgb (12.0-16.0) gm/dl Hct (35-47) % MCV (78-100) fl MCH (26-32) pg MCHC (32-36) g/dl RDW (11.5-14.0) % Plt Count (150-450) K/mm3 MPV (7.5-11.0) fl Segmented Neutrophils (36.0-66.0) % Lymphocytes (Manual) (24-44) % Monocytes (Manual) (0.0-12.0) % Eosinophils (Manual) (0.00-3.0) % Platelet Estimate (NORMAL) RBC Morphology Anisocytosis Sodium (137-145) mmol/L Potassium (3.5-5.1) mmol/L Chloride (98-107) mmol/L Carbon Dioxide (22-30) mmol/L Anion Gap (5-15) MEQ/L BUN (7-17) mg/dL Creatinine (0.52-1.04) mg/dL Estimated GFR ML/MIN Glucose (74-106) mg/dL POC Glucometer 144 H (50 to 500) mg/dL Lactic Acid (0.4-2.0) Calcium (8.4-10.2) mg/dL Magnesium (1.6-2.3) mg/dL Total Bilirubin (0.2-1.3) mg/dL AST (14-36) U/L ALT (0-35) U/L Alkaline Phosphatase (38-126) U/L Troponin I 0.041 H* 0.040 H* (0.000-0.034) ng/mL NT-Pro-B Natriuret Pep (0-900) pg/mL Serum Total Protein (6.3-8.2) g/dL Albumin (3.5-5.0) g/dL Urine Color (YELLOW) Urine Appearance (CLEAR) Urine pH (5-6) Ur Specific [place] (1.005-1.025) Urine Protein (Negative) Urine Ketones (NEGATIVE) Urine Blood (0-5) Brennan/ul Urine Nitrite (NEGATIVE) Urine Bilirubin (NEGATIVE) Urine Urobilinogen (0-1) mg/dL Ur Leukocyte Esterase (NEGATIVE) Urine WBC (Auto) (0-5) /HPF Urine RBC (Auto) (0-2) /HPF U Epithel Cells (Auto) (FEW) /HPF Urine Bacteria (Auto) (NEGATIVE) /HPF Urine Mucus (Auto) (NEGATIVE) /HPF Urine Culture Reflexed (NO) Urine Glucose (NEGATIVE) mg/dL Influenza Type A Ag (NEGATIVE) Influenza Type B Ag (NEGATIVE) RSV (PCR) (Negative) SARS-CoV-2 (PCR) (NEGATIVE) 07/22/21 07/22/21 07/22/21 Range/Units 01:30 01:30 07:15 WBC 7.6 (4.0-10.5) K/mm3 RBC 3.43 L (4.1-5.4) M/mm3 Hgb 10.9 L (12.0-16.0) gm/dl Hct 34.3 L (35-47) % MCV 100.0 (78-100) fl MCH 31.8 (26-32) pg MCHC 31.8 L (32-36) g/dl RDW 16.7 H (11.5-14.0) % Plt Count 150 (150-450) K/mm3 MPV 8.7 (7.5-11.0) fl Segmented Neutrophils 74 H (36.0-66.0) % Lymphocytes (Manual) 18 L (24-44) % Monocytes (Manual) 8 (0.0-12.0) % Eosinophils (Manual) (0.00-3.0) % Platelet Estimate NORMAL (NORMAL) RBC Morphology ABNORMAL Anisocytosis 1+ Sodium 132 L (137-145) mmol/L Potassium 4.3 (3.5-5.1) mmol/L Chloride 100 (98-107) mmol/L Carbon Dioxide 24 (22-30) mmol/L Anion Gap 12.5 (5-15) MEQ/L BUN 19 H (7-17) mg/dL Creatinine 0.85 (0.52-1.04) mg/dL Estimated GFR > 60.0 ML/MIN Glucose 141 H (74-106) mg/dL POC Glucometer 217 H (50 to 500) mg/dL Lactic Acid (0.4-2.0) Calcium 8.3 L (8.4-10.2) mg/dL Magnesium (1.6-2.3) mg/dL Total Bilirubin 0.60 (0.2-1.3) mg/dL AST 23 (14-36) U/L ALT 13 (0-35) U/L Alkaline Phosphatase 83 (38-126) U/L Troponin I (0.000-0.034) ng/mL NT-Pro-B Natriuret Pep (0-900) pg/mL Serum Total Protein 6.4 (6.3-8.2) g/dL Albumin 3.4 L (3.5-5.0) g/dL Urine Color (YELLOW) Urine Appearance (CLEAR) Urine pH (5-6) Ur Specific [place] (1.005-1.025) Urine Protein (Negative) Urine Ketones (NEGATIVE) Urine Blood (0-5) Brennan/ul Urine Nitrite (NEGATIVE) Urine Bilirubin (NEGATIVE) Urine Urobilinogen (0-1) mg/dL Ur Leukocyte Esterase (NEGATIVE) Urine WBC (Auto) (0-5) /HPF Urine RBC (Auto) (0-2) /HPF U Epithel Cells (Auto) (FEW) /HPF Urine Bacteria (Auto) (NEGATIVE) /HPF Urine Mucus (Auto) (NEGATIVE) /HPF Urine Culture Reflexed (NO) Urine Glucose (NEGATIVE) mg/dL Influenza Type A Ag (NEGATIVE) Influenza Type B Ag (NEGATIVE) RSV (PCR) (Negative) SARS-CoV-2 (PCR) (NEGATIVE) 07/22/21 Range/Units 11:44 WBC (4.0-10.5) K/mm3 RBC (4.1-5.4) M/mm3 Hgb (12.0-16.0) gm/dl Hct (35-47) % MCV (78-100) fl MCH (26-32) pg MCHC (32-36) g/dl RDW (11.5-14.0) % Plt Count (150-450) K/mm3 MPV (7.5-11.0) fl Segmented Neutrophils (36.0-66.0) % Lymphocytes (Manual) (24-44) % Monocytes (Manual) (0.0-12.0) % Eosinophils (Manual) (0.00-3.0) % Platelet Estimate (NORMAL) RBC Morphology Anisocytosis Sodium (137-145) mmol/L Potassium (3.5-5.1) mmol/L Chloride (98-107) mmol/L Carbon Dioxide (22-30) mmol/L Anion Gap (5-15) MEQ/L BUN (7-17) mg/dL Creatinine (0.52-1.04) mg/dL Estimated GFR ML/MIN Glucose (74-106) mg/dL POC Glucometer 230 H (50 to 500) mg/dL Lactic Acid (0.4-2.0) Calcium (8.4-10.2) mg/dL Magnesium (1.6-2.3) mg/dL Total Bilirubin (0.2-1.3) mg/dL AST (14-36) U/L ALT (0-35) U/L Alkaline Phosphatase (38-126) U/L Troponin I (0.000-0.034) ng/mL NT-Pro-B Natriuret Pep (0-900) pg/mL Serum Total Protein (6.3-8.2) g/dL Albumin (3.5-5.0) g/dL Urine Color (YELLOW) Urine Appearance (CLEAR) Urine pH (5-6) Ur Specific [place] (1.005-1.025) Urine Protein (Negative) Urine Ketones (NEGATIVE) Urine Blood (0-5) Brennan/ul Urine Nitrite (NEGATIVE) Urine Bilirubin (NEGATIVE) Urine Urobilinogen (0-1) mg/dL Ur Leukocyte Esterase (NEGATIVE) Urine WBC (Auto) (0-5) /HPF Urine RBC (Auto) (0-2) /HPF U Epithel Cells (Auto) (FEW) /HPF Urine Bacteria (Auto) (NEGATIVE) /HPF Urine Mucus (Auto) (NEGATIVE) /HPF Urine Culture Reflexed (NO) Urine Glucose (NEGATIVE) mg/dL Influenza Type A Ag (NEGATIVE) Influenza Type B Ag (NEGATIVE) RSV (PCR) (Negative) SARS-CoV-2 (PCR) (NEGATIVE) Microbiology 07/21/21 12:44 Urine Culture - Preliminary Urine, Void GRAM NEGATIVE ID AND SENSITIVITY PENDING 07/21/21 13:01 Blood Culture Gram Stain - Final Blood 07/21/21 13:12 Blood Culture Gram Stain - Final Blood Accuchecks Date 07/22/21 Date 07/22/21 Time 11:51 Time 08:00 - Radiology Impressions Radiology Exams & Impressions: Radiology Procedures Category Date Time Status CHEST 1 VIEW (PORTABLE) Stat Exams 07/21/21 12:22 Completed HEAD WITHOUT CONTRAST [CT] Stat Exams 07/21/21 17:49 Completed - Other Procedures and Tests Respiratory Therapy 07/21/21 18:23 Oxygen Nasal Cannula 2 lpm 07/21/21 21:42 Respiratory Therapy Assessment DAILY Assessment/Plan (1) Elevated troponin Current Visit: Yes Status: Acute Assessment & Plan: Chief Complaint Diagnosis Sepsis pneumonia, hypoglycemia Allergies Allergy/AdvReac Type Severity Reaction Status Date / Time aspirin Allergy Verified 07/21/21 13:43 clorazepate dipotassium Allergy Verified 07/21/21 13:43 [From Tranxene T-Tab] codeine [Codeine] Allergy Verified 07/21/21 13:43 hydrocodone bitartrate Allergy Verified 07/21/21 13:43 [From Vicoprofen] ibuprofen [From Vicoprofen] Allergy Verified 07/21/21 13:43 latex Allergy Verified 07/21/21 13:43 Penicillins Allergy Verified 07/21/21 13:43 Vital Signs (Last 24 hours) Temp Pulse Resp BP Pulse Ox 07/22/21 08:00 98.4 F 83 18 142/64 97 07/22/21 04:00 98.7 F 80 19 133/63 97 07/21/21 23:39 98.7 F 77 18 121/58 98 07/21/21 20:50 77 14 98 07/21/21 19:27 97.5 F 90 24 195/84 100 07/21/21 17:14 100 07/21/21 17:02 79 18 94 L 07/21/21 15:06 74 18 154/87 97 07/21/21 14:00 73 14 176/90 97 07/21/21 13:13 71 16 191/71 100 07/21/21 12:09 87 167/96 100 Home Medications Medication Instructions Recorded Confirmed Last Taken Type dronabinoL [Marinol] 2.5 mg PO UD 07/21/21 07/21/21 07/20/21 History Current Medications Generic Name Dose Route Start Last Admin Trade Name Mannieq PRN Reason Stop Dose Admin Acetaminophen 650 mg 07/21/21 18:23 07/22/21 08:03 Acetaminophen 325 Mg Tablet PO 08/20/21 18:22 650 mg Q4H PRN PRN Administration PAIN AND/OR FEVER Albuterol/Ipratropium 3 ml 07/21/21 18:23 Ipratropium/Albuterol Sulfate 3 Ml Ampul.Neb IH 08/20/21 18:22 Q4HPRN PRN SHORTNESS OF BREATH/WHEEZING Ezetimibe 10 mg 07/21/21 22:00 07/21/21 22:18 Ezetimibe 10 Mg Tab PO 08/20/21 21:59 10 mg HS DESI Administration Famotidine 20 mg 07/21/21 22:00 07/22/21 09:41 Famotidine 20 Mg Tablet PO 08/20/21 21:59 20 mg BID DESI Administration Furosemide 20 mg 07/22/21 12:00 Furosemide 20 Mg Tablet PO 08/21/21 11:59 DAILY DESI Hydralazine HCl 50 mg 07/21/21 22:00 07/22/21 09:41 Hydralazine Hcl 25 Mg Tablet PO 08/20/21 21:59 50 mg BID DESI Administration Levofloxacin/Dextrose 500 mg in 100 mls @ 100 mls/hr 07/22/21 10:00 07/22/21 09:41 Levofloxacin 500mg/100ml D5w IV 08/21/21 09:59 100 mls/hr Q24H10 DESI Administration Insulin Human Lispro 0 unit 07/22/21 10:56 Insulin Lispro 1 Unit SQ 08/21/21 10:55 UD PRN HYPERGLYCEMIA Insulin Human Lispro 8 unit 07/22/21 12:00 Insulin Lispro 1 Unit SQ 08/21/21 11:59 LUNCH DESI Insulin Human Lispro 7 unit 07/22/21 18:00 Insulin Lispro 1 Unit SQ 08/21/21 17:59 EVENING MEAL DESI Insulin Human Lispro 11 unit 07/23/21 08:00 Insulin Lispro 1 Unit SQ 08/22/21 07:59 BREAKFAST [facility] Levothyroxine Sodium 75 mcg 07/22/21 12:00 Levothyroxine Sodium 75 Mcg Tablet PO 08/21/21 11:59 DAILY DESI Losartan Potassium 50 mg 07/22/21 12:00 Losartan Potassium 50 Mg Tablet PO 08/21/21 11:59 DAILY [facility] Non-Formulary Medication 2.5 mg 07/22/21 11:45 Dronabinol [Marinol] PO 08/21/21 11:44 UD DESI Ondansetron HCl 4 mg 07/21/21 21:13 Zofran 4 Mg/Udtablet Orally Disintegrating PO 08/20/21 21:12 TID PRN PRN NAUSEA/VOMITING Ondansetron HCl 4 mg 07/22/21 11:56 Zofran 4 Mg/Udtablet Orally Disintegrating PO 08/21/21 11:55 TID PRN PRN NAUSEA/VOMITING Pantoprazole Sodium 40 mg 07/22/21 10:00 07/22/21 09:41 Pantoprazole 40 Mg Vial IV 08/21/21 09:59 40 mg Q24H10 DESI Administration Patient Own Med: 0 each 07/22/21 12:00 Bydureon Bcise SQ 08/21/21 11:59 WEEKLY [facility] Rivaroxaban 20 mg 07/22/21 18:00 Rivaroxaban 10 Mg Tablet PO 08/21/21 17:59 EVENING MEAL [facility] Simvastatin 40 mg 07/22/21 22:00 Simvastatin 20 Mg Tablet PO 08/21/21 21:59 HS [facility] Tramadol HCl 50 mg 07/22/21 10:55 07/22/21 11:35 Tramadol Hcl 50 Mg Tablet PO 08/21/21 10:54 50 mg Q6H PRN PRN Administration PAIN Discontinued Medications Generic Name Dose Route Start Last Admin Trade Name Freq PRN Reason Stop Dose Admin Dextrose Confirm 07/21/21 12:14 Dextrose 50%-Water 50 Ml Abboject Administered 07/21/21 12:15 Dose 50 ml IV .STK-MED ONE Dextrose 50 ml 07/21/21 12:56 Dextrose 50%-Water 50 Ml Abboject IV 07/21/21 12:57 STAT ONE Dextrose 250 mls @ 30 mls/hr 07/21/21 12:30 Dextrose 10% 250 Ml IV 08/20/21 12:29 .Q8H20M DESI Sodium Chloride 1,000 mls @ 999 mls/hr 07/21/21 13:52 07/21/21 16:40 Sodium Chloride 0.9% 1000 Ml IV 07/21/21 14:52 Infused .Q1H1M STA Infusion Levofloxacin/Dextrose 500 mg in 100 mls @ 100 mls/hr 07/21/21 14:16 07/21/21 16:40 Levofloxacin 500mg/100ml D5w IV 07/21/21 15:15 Infused STAT STA Infusion Sodium Chloride Confirm 07/21/21 15:15 Sodium Chloride 0.9% 1000 Ml Administered 07/21/21 15:16 Dose 1,000 mls @ ud .ROUTE .STK-MED ONE Levofloxacin/Dextrose Confirm 07/21/21 15:16 Levofloxacin 500mg/100ml D5w Administered 07/21/21 15:17 Dose 500 mg in 100 mls @ ud IV .STK-MED ONE Simvastatin 80 mg 07/21/21 22:00 07/21/21 22:19 Simvastatin 20 Mg Tablet PO 07/21/21 22:01 80 mg ONCE ONE Administration Intake & Output (Last 24 hours) 07/20/21 07/21/21 07/22/21 07/23/21 11:59 11:59 11:59 11:59 Intake Total 540 Output Total 725 Balance -185 Weight 73.8 kg Microbiology Results (Last 24 hours) 07/21/21 12:44 Urine, Void Urine Culture - Preliminary GRAM NEGATIVE ID AND SENSITIVITY PENDING 07/21/21 13:01 Blood Blood Culture Gram Stain - Final 07/21/21 13:01 Blood Blood Culture - Pending 07/21/21 13:12 Blood Blood Culture Gram Stain - Final 07/21/21 13:12 Blood Blood Culture - Pending Laboratory Results (Last 24 hours) 07/22/21 07/22/21 07/22/21 11:44 07:15 01:30 WBC RBC Hgb Hct MCV MCH MCHC RDW Plt Count MPV Segmented Neutrophils Lymphocytes (Manual) Monocytes (Manual) Eosinophils (Manual) Platelet Estimate RBC Morphology Anisocytosis Sodium 132 L Potassium 4.3 Chloride 100 Carbon Dioxide 24 Anion Gap 12.5 BUN 19 H Creatinine 0.85 Estimated GFR > 60.0 Glucose 141 H POC Glucometer 230 H 217 H Lactic Acid Calcium 8.3 L Magnesium Total Bilirubin 0.60 AST 23 ALT 13 Alkaline Phosphatase 83 Troponin I NT-Pro-B Natriuret Pep Serum Total Protein 6.4 Albumin 3.4 L Urine Color Urine Appearance Urine pH Ur Specific [place] Urine Protein Urine Ketones Urine Blood Urine Nitrite Urine Bilirubin Urine Urobilinogen Ur Leukocyte Esterase Urine WBC (Auto) Urine RBC (Auto) U Epithel Cells (Auto) Urine Bacteria (Auto) Urine Mucus (Auto) Urine Culture Reflexed Urine Glucose Influenza Type A Ag Influenza Type B Ag RSV (PCR) SARS-CoV-2 (PCR) 07/22/21 07/22/21 07/21/21 01:30 01:30 23:30 WBC 7.6 RBC 3.43 L Hgb 10.9 L Hct 34.3 L MCV 100.0 MCH 31.8 MCHC 31.8 L RDW 16.7 H Plt Count 150 MPV 8.7 Segmented Neutrophils 74 H Lymphocytes (Manual) 18 L Monocytes (Manual) 8 Eosinophils (Manual) Platelet Estimate NORMAL RBC Morphology ABNORMAL Anisocytosis 1+ Sodium Potassium Chloride Carbon Dioxide Anion Gap BUN Creatinine Estimated GFR Glucose POC Glucometer Lactic Acid Calcium Magnesium Total Bilirubin AST ALT Alkaline Phosphatase Troponin I 0.040 H* 0.041 H* NT-Pro-B Natriuret Pep Serum Total Protein Albumin Urine Color Urine Appearance Urine pH Ur Specific [place] Urine Protein Urine Ketones Urine Blood Urine Nitrite Urine Bilirubin Urine Urobilinogen Ur Leukocyte Esterase Urine WBC (Auto) Urine RBC (Auto) U Epithel Cells (Auto) Urine Bacteria (Auto) Urine Mucus (Auto) Urine Culture Reflexed Urine Glucose Influenza Type A Ag Influenza Type B Ag RSV (PCR) SARS-CoV-2 (PCR) 07/21/21 07/21/21 07/21/21 21:20 20:20 19:43 WBC RBC Hgb Hct MCV MCH MCHC RDW Plt Count MPV Segmented Neutrophils Lymphocytes (Manual) Monocytes (Manual) Eosinophils (Manual) Platelet Estimate RBC Morphology Anisocytosis Sodium Potassium Chloride Carbon Dioxide Anion Gap BUN Creatinine Estimated GFR Glucose POC Glucometer 144 H Lactic Acid 1.2 Calcium Magnesium Total Bilirubin AST ALT Alkaline Phosphatase Troponin I 0.038 H* NT-Pro-B Natriuret Pep Serum Total Protein Albumin Urine Color Urine Appearance Urine pH Ur Specific [place] Urine Protein Urine Ketones Urine Blood Urine Nitrite Urine Bilirubin Urine Urobilinogen Ur Leukocyte Esterase Urine WBC (Auto) Urine RBC (Auto) U Epithel Cells (Auto) Urine Bacteria (Auto) Urine Mucus (Auto) Urine Culture Reflexed Urine Glucose Influenza Type A Ag Influenza Type B Ag RSV (PCR) SARS-CoV-2 (PCR) 07/21/21 07/21/21 07/21/21 16:03 15:35 15:22 WBC RBC Hgb Hct MCV MCH MCHC RDW Plt Count MPV Segmented Neutrophils Lymphocytes (Manual) Monocytes (Manual) Eosinophils (Manual) Platelet Estimate RBC Morphology Anisocytosis Sodium Potassium Chloride Carbon Dioxide Anion Gap BUN Creatinine Estimated GFR Glucose POC Glucometer Lactic Acid 2.2 H Calcium Magnesium Total Bilirubin AST ALT Alkaline Phosphatase Troponin I 0.038 H* NT-Pro-B Natriuret Pep Serum Total Protein Albumin Urine Color Urine Appearance Urine pH Ur Specific [place] Urine Protein Urine Ketones Urine Blood Urine Nitrite Urine Bilirubin Urine Urobilinogen Ur Leukocyte Esterase Urine WBC (Auto) Urine RBC (Auto) U Epithel Cells (Auto) Urine Bacteria (Auto) Urine Mucus (Auto) Urine Culture Reflexed Urine Glucose Influenza Type A Ag NEGATIVE Influenza Type B Ag NEGATIVE RSV (PCR) NEGATIVE SARS-CoV-2 (PCR) NEGATIVE 07/21/21 07/21/21 07/21/21 13:12 13:12 13:12 WBC 10.5 RBC 3.92 L Hgb 12.5 Hct 39.1 MCV 99.7 MCH 31.9 MCHC 32.0 RDW 16.8 H Plt Count 158 MPV 8.9 Segmented Neutrophils 89 H Lymphocytes (Manual) 5 L Monocytes (Manual) 5 Eosinophils (Manual) 1 Platelet Estimate NORMAL RBC Morphology NORMAL Anisocytosis Sodium 137 Potassium 4.7 Chloride 96 L Carbon Dioxide 29 Anion Gap 16.0 H BUN 25 H Creatinine 0.91 Estimated GFR > 60.0 Glucose 153 H POC Glucometer Lactic Acid Calcium 9.1 Magnesium 2.3 Total Bilirubin 0.50 AST 28 ALT 17 Alkaline Phosphatase 94 Troponin I 0.042 H* NT-Pro-B Natriuret Pep 524 Serum Total Protein 7.8 Albumin 4.5 Urine Color Urine Appearance Urine pH Ur Specific [place] Urine Protein Urine Ketones Urine Blood Urine Nitrite Urine Bilirubin Urine Urobilinogen Ur Leukocyte Esterase Urine WBC (Auto) Urine RBC (Auto) U Epithel Cells (Auto) Urine Bacteria (Auto) Urine Mucus (Auto) Urine Culture Reflexed Urine Glucose Influenza Type A Ag Influenza Type B Ag RSV (PCR) SARS-CoV-2 (PCR) 07/21/21 07/21/21 07/21/21 12:53 12:44 12:22 WBC RBC Hgb Hct MCV MCH MCHC RDW Plt Count MPV Segmented Neutrophils Lymphocytes (Manual) Monocytes (Manual) Eosinophils (Manual) Platelet Estimate RBC Morphology Anisocytosis Sodium Potassium Chloride Carbon Dioxide Anion Gap BUN Creatinine Estimated GFR Glucose POC Glucometer 93 Lactic Acid 3.4 H Calcium Magnesium Total Bilirubin AST ALT Alkaline Phosphatase Troponin I NT-Pro-B Natriuret Pep Serum Total Protein Albumin Urine Color YELLOW Urine Appearance CLOUDY Urine pH 5.0 Ur Specific [place] 1.031 Urine Protein NEGATIVE Urine Ketones NEGATIVE Urine Blood NEGATIVE Urine Nitrite NEGATIVE Urine Bilirubin NEGATIVE Urine Urobilinogen 4 Ur Leukocyte Esterase LARGE Urine WBC (Auto) >100 Urine RBC (Auto) 3-5 U Epithel Cells (Auto) NONE Urine Bacteria (Auto) FEW Urine Mucus (Auto) SLIGHT Urine Culture Reflexed YES Urine Glucose 50 Influenza Type A Ag Influenza Type B Ag RSV (PCR) SARS-CoV-2 (PCR) 07/21/21 12:17 WBC RBC Hgb Hct MCV MCH MCHC RDW Plt Count MPV Segmented Neutrophils Lymphocytes (Manual) Monocytes (Manual) Eosinophils (Manual) Platelet Estimate RBC Morphology Anisocytosis Sodium Potassium Chloride Carbon Dioxide Anion Gap BUN Creatinine Estimated GFR Glucose POC Glucometer 41 L* Lactic Acid Calcium Magnesium Total Bilirubin AST ALT Alkaline Phosphatase Troponin I NT-Pro-B Natriuret Pep Serum Total Protein Albumin Urine Color Urine Appearance Urine pH Ur Specific [place] Urine Protein Urine Ketones Urine Blood Urine Nitrite Urine Bilirubin Urine Urobilinogen Ur Leukocyte Esterase Urine WBC (Auto) Urine RBC (Auto) U Epithel Cells (Auto) Urine Bacteria (Auto) Urine Mucus (Auto) Urine Culture Reflexed Urine Glucose Influenza Type A Ag Influenza Type B Ag RSV (PCR) SARS-CoV-2 (PCR) Orders (Last 24 hours) Category Date Time Status Bedrest ROUTINE Activity 07/21/21 18:23 Active Up With Assistance ROUTINE Activity 07/21/21 18:23 Active Grinder Lap STAT Care 07/21/21 12:23 Completed Code Status Order ROUTINE Care 07/21/21 18:23 Active EKG-ER Only STAT Care 07/21/21 12:22 Completed Fall Protocol Q1H Care 07/21/21 18:23 Active Bishop [Catheter-[place] Bishop] STAT Care 07/21/21 12:55 Completed IV Care Q6H Care 07/21/21 18:23 Active IV Insertion STAT Care 07/21/21 12:22 Completed Miscellaneous Nursing Order ROUTINE Care 07/22/21 11:34 Active POCT Glucose Check ACHS Care 07/21/21 18:[address] in Observation ROUTINE Care 07/21/21 18:23 Active Kel Farr, Apply ROUTINE Care 07/21/21 18:23 Active Weight,Daily 0600 Care 07/21/21 18:23 Active Consult Podiatry ROUTINE Cons 07/22/21 11:00 Active Infection Control Consult ROUTINE Cons 07/21/21 20:04 Active Pharmacy Specialist/Discharge Plan ROUTINE Cons 07/22/21 00:35 Active CHEST 1 VIEW (PORTABLE) Stat Exams 07/21/21 12:22 Completed HEAD WITHOUT CONTRAST [CT] Stat Exams 07/21/21 17:49 Completed BLOOD CULTURE Stat Lab 07/21/21 13:01 Results CBC W DIFF AM.LAB Lab 07/22/21 01:30 Completed CBC W DIFF Stat Lab 07/21/21 13:12 Completed CMP AM.LAB Lab 07/22/21 01:30 Completed CMP Stat Lab 07/21/21 13:12 Completed CULTURE,URINE Stat Lab 07/21/21 12:44 Results Lactic Acid Routine Lab 07/21/21 20:20 Completed Lactic Acid Stat Lab 07/21/21 12:22 Completed Lactic Acid Stat Lab 07/21/21 15:22 Completed MAGNESIUM Stat Lab 07/21/21 13:12 Completed Manual Differential NC Routine Lab 07/22/21 01:30 Completed Manual Differential NC Stat Lab 07/21/21 13:12 Completed NT PRO BNP Stat Lab 07/21/21 13:12 Completed POCT GLUCOSE Stat Lab 07/22/21 07:15 Completed POCT GLUCOSE Stat Lab 07/22/21 11:44 Completed POCT GLUCOSE Stat Lab 07/21/21 12:17 Completed POCT GLUCOSE Stat Lab 07/21/21 12:53 Completed POCT GLUCOSE Stat Lab 07/21/21 21:20 Completed TROPONIN Q3H Lab 07/22/21 01:30 Completed TROPONIN Q3H Lab 07/21/21 13:12 Completed TROPONIN Q3H Lab 07/21/21 15:35 Completed TROPONIN Q3H Lab 07/21/21 19:43 Completed TROPONIN Q3H Lab 07/21/21 23:30 Completed UA W/RFX UR CULTURE Stat Lab 07/21/21 12:44 Completed Acetaminophen 325 mg [Tylenol 325 mg] Med 07/21/21 18:23 Active 650 mg PO Q4H PRN PRN Albuterol/Ipratropium 3ml Neb* [DUONEB 0.5-3 MG/3 ml Med 07/21/21 18:23 Active Neb] 3 ml IH Q4HPRN PRN Dextrose 10%-Water 250 ML [Dextrose 10% 250 ml] 250 ml Med 07/21/21 12:30 Discontinued IV 30 mls/hr Dextrose 50%-Water Syringe [D50W 50 ml Abboject] Med 07/21/21 12:14 Discontinued 50 ml IV .STK-MED ONE Dextrose 50%-Water Syringe [D50W 50 ml Abboject] Med 07/21/21 12:56 Discontinued 50 ml IV STAT ONE Ezetimibe 10 mg [Zetia 10 MG] Med 07/21/21 22:00 Active 10 mg PO HS Famotidine 20 mg [Pepcid 20 MG] Med 07/21/21 22:00 Active 20 mg PO BID Furosemide 20 mg [Lasix 20 mg] Med 07/22/21 12:00 Active 20 mg PO DAILY HydrALAzine HCL 25 MG TAB [Apresoline 25 MG TABLET Med 07/21/21 22:00 Active *] 50 mg PO BID Insulin Lispro [Humalog] Med 07/23/21 08:00 Active 11 unit SQ BREAKFAST Insulin Lispro [Humalog] Med 07/22/21 18:00 Active 7 unit SQ EVENING MEAL Insulin Lispro [Humalog] Med 07/22/21 12:00 Active 8 unit SQ LUNCH Insulin Lispro [Humalog] Med 07/22/21 10:56 Active See Dose Instructions SQ UD PRN Levofloxacin [Levofloxacin 500MG/100ML D5W] Med 07/22/21 10:00 Active 500 mg in 100 ml IV Q24H10 Levofloxacin [Levofloxacin 500MG/100ML D5W] Med 07/21/21 14:16 Discontinued 500 mg in 100 ml IV STAT Levofloxacin [Levofloxacin 500MG/100ML D5W] Med 07/21/21 15:16 Discontinued 500 mg in 100 ml IV UD Levothyroxine Sodium 75 Mcg [Synthroid 75 Mcg] Med 07/22/21 12:00 Active 75 mcg PO DAILY Losartan Potassium 50 mg [Cozaar 50 MG] Med 07/22/21 12:00 Active 50 mg PO DAILY NaCl 0.9% 1000 ml [Sodium Chloride 0.9% 1000 ML] 1,000 Med 07/21/21 15:15 Discontinued ml .ROUTE UD NaCl 0.9% 1000 ml [Sodium Chloride 0.9% 1000 ML] 1,000 Med 07/21/21 13:52 Discontinued ml IV 999 mls/hr Ondansetron ODT 4 MG [Zofran Odt 4 mg] Med 07/22/21 11:56 Active 4 mg PO TID PRN PRN Ondansetron ODT 4 MG [Zofran Odt 4 mg] Med 07/21/21 21:13 Active 4 mg PO TID PRN PRN Pantoprazole 40 mg [Protonix 40 mg IV] Med 07/22/21 10:00 Active 40 mg IV Q24H10 Patient Own Med [Patient Own Medication] Med 07/22/21 12:00 Active See Dose Instructions SQ WEEKLY Rivaroxaban 10 mg Tablet [Xarelto 10 mg Tablet] Med 07/22/21 18:00 Active 20 mg PO EVENING MEAL Simvastatin 20Mg [Zocor 20Mg] Med 07/22/21 22:00 Active 40 mg PO HS Simvastatin 20Mg [Zocor 20Mg] Med 07/21/21 22:00 Discontinued 80 mg PO ONCE ONE Tramadol HCl 50 mg [Ultram 50 mg] Med 07/22/21 10:55 Active 50 mg PO Q6H PRN PRN dronabinoL [Marinol] Med 07/22/21 11:45 Ordered 2.5 mg PO UD OT Screen per Nursing Assess ONCE OT 07/22/21 00:35 Active PT Screen per Nursing Assess ONCE PT 07/22/21 00:35 Active Oxygen Nasal Cannula 2 lpm RT 07/21/21 18:23 Active Pulse Oximetry .spot check RT 07/21/21 21:42 Active Respiratory Therapy Assessment DAILY RT 07/21/21 21:42 Active Patient Care Notes (Last 24 hours) 07/21/21 22:45 Nursing Note by Janelle Monzon Pt has wound on left heel , stage 3 possible 4, 4 cm in diameter, 2 in wide, Dx changed, miriplex applied at this time, pt stated she had an appointment with wound care but did not have transportation. Will pass on in report in AM for MD Initialized on 07/21/21 22:45 - END OF NOTE Code(s): R74.8 - ABNORMAL LEVELS OF OTHER SERUM ENZYMES (2) Hypoglycemia Current Visit: Yes Status: Acute Code(s): E16.2 - HYPOGLYCEMIA, UNSPECIFIED (3) Sepsis due to pneumonia Current Visit: Yes Status: Acute Code(s): J18.9 - PNEUMONIA, UNSPECIFIED ORGANISM; A41.9 - SEPSIS, UNSPECIFIED ORGANISM (4) Chest pain, rule out acute myocardial infarction Current Visit: No Status: Acute Code(s): R07.9 - CHEST PAIN, UNSPECIFIED (5) Congestive heart failure Current Visit: No Status: Acute Code(s): I50.9 - HEART FAILURE, UNSPECIFIED
[2021-07-22] MEDS: Cozaar 50 MG PO SCH (12:05)
[2021-07-22] MEDS: SYNTHROID 75 MCG PO SCH (12:05)
[2021-07-22] MEDS: LASIX 20 MG PO SCH (12:05)
[2021-07-22] MEDS: HUMALOG SQ SCH ×2 (12:05→17:31)
[2021-07-22] MEDS: HUMALOG SQ PRN (12:06)
[2021-07-22] MEDS: PATIENT OWN MEDICATION PO SCH (16:53)
[2021-07-22] MEDS: XARELTO 10 MG TABLET PO SCH (17:30)
[2021-07-22] MEDS ORDERED: NON-FORMULARY ITEM (Rivaroxaban [Xarelto] 20 MG Tablet) PO SCH (18:00)
[2021-07-22] MEDS: Zetia 10 MG PO SCH (21:05)
[2021-07-22] MEDS: ZOCOR 20MG PO SCH (21:05)
[2021-07-22] MEDS ORDERED: LIPITOR 40MG PO SCH (22:00)
[2021-07-23] MEDS ORDERED: NON-FORMULARY ITEM (Insulin Lispro 1 UNIT Ml) SQ SCH (08:00)
--- NOTE | 2021-07-23 08:27 | PCM.NOTE ---
Date and Time: 07/23/21825 Subjective Assessment: doing better - Review of Systems Constitutional: No Fever, No Chills Eyes: No Symptoms Ears, Nose, & Throat: No Symptoms Respiratory: No Cough, No Short Of Breath Cardiac: No Chest Pain, No Edema, No Syncope Abdominal/Gastrointestinal: No Abdominal Pain, No Nausea, No Vomiting, No Diarrhea Genitourinary Symptoms: No Dysuria Musculoskeletal: No Back Pain, No Neck Pain Skin: No Rash Neurological: No Dizziness, No Focal Weakness, No Sensory Changes Psychological: No Symptoms Endocrine: No Symptoms Hematologic/Lymphatic: No Symptoms Immunological/Allergic: No Symptoms Objective Exam General Appearance: no apparent distress, alert Neurologic Exam: alert, oriented x 3, cooperative, normal mood/affect, nml cerebellar function, sensation nml, No motor deficits Skin Exam: normal color, warm, dry Eye Exam: PERRL, EOMI, eyes nml inspection Ears, Nose, Throat Exam: normal ENT inspection, pharynx normal, moist mucous membranes Neck Exam: normal inspection, non-tender, supple, full range of motion Respiratory Exam: normal breath sounds, lungs clear, No respiratory distress Cardiovascular Exam: regular rate/rhythm, normal heart sounds Gastrointestinal/Abdomen Exam: soft, No tenderness, No mass Extremity Exam: normal inspection, normal range of motion Back Exam: normal inspection, normal range of motion, No CVA tenderness, No vertebral tenderness Pelvic Exam: deferred Rectal Exam: deferred OBJECTIVE DATA Vital Signs: Vital Signs - 24 hr Temp Pulse Resp BP Pulse Ox 07/23/21 07:45 89 16 98 07/23/21 04:00 97.7 F 87 18 119/59 96 07/23/21 00:58 98.7 F 82 18 119/50 97 07/22/21 20:48 98.0 F 91 H 16 112/56 98 07/22/21 18:22 84 18 96 07/22/21 17:08 97.8 F 79 18 125/60 95 07/22/21 16:00 98.2 F 84 16 125/57 97 07/22/21 13:52 84 16 97 07/22/21 12:00 98.2 F 87 16 125/57 98 Pain Assessment - Last Documented Pain Intensity 0 Pain Scale Used FLACC Intake and Output: Intake & Output 07/20/21 07/21/21 07/22/21 07/23/21 11:59 11:59 11:59 11:59 Intake Total 540 720 Output Total 725 1250 Balance -185 -530 Weight 73.8 kg 76.4 kg Lab Results: Lab Results-Last 24 Hours 07/22/21 07/22/21 07/22/21 Range/Units 02:44 11:44 16:07 POC Glucometer 230 H 133 H (74 to 106) mg/dL Hemoglobin A1c 6.91 H (4.5-6.0) % 07/22/21 07/23/21 Range/Units 20:59 07:36 POC Glucometer 136 H 236 H (74 to 106) mg/dL Hemoglobin A1c (4.5-6.0) % Radiology Exams: Radiology Procedures Category Date Time Status CHEST 1 VIEW (PORTABLE) Stat Exams 07/21/21 12:22 Completed HEAD WITHOUT CONTRAST [CT] Stat Exams 07/21/21 17:49 Completed Assessment/Plan (1) Sepsis due to pneumonia Current Visit: Yes Status: Acute Assessment & Plan: Chief Complaint Diagnosis Sepsis, pneumonia, hypoglycemia Allergies Allergy/AdvReac Type Severity Reaction Status Date / Time aspirin Allergy Verified 07/21/21 13:43 clorazepate dipotassium Allergy Verified 07/21/21 13:43 [From Tranxene T-Tab] codeine [Codeine] Allergy Verified 07/21/21 13:43 hydrocodone bitartrate Allergy Verified 07/21/21 13:43 [From Vicoprofen] ibuprofen [From Vicoprofen] Allergy Verified 07/21/21 13:43 latex Allergy Verified 07/21/21 13:43 Penicillins Allergy Verified 07/21/21 13:43 Vital Signs (Last 24 hours) Temp Pulse Resp BP Pulse Ox 07/23/21 07:45 89 16 98 07/23/21 04:00 97.7 F 87 18 119/59 96 07/23/21 00:58 98.7 F 82 18 119/50 97 07/22/21 20:48 98.0 F 91 H 16 112/56 98 07/22/21 18:22 84 18 96 07/22/21 17:08 97.8 F 79 18 125/60 95 07/22/21 16:00 98.2 F 84 16 125/57 97 07/22/21 13:52 84 16 97 07/22/21 12:00 98.2 F 87 16 125/57 98 Home Medications Medication Instructions Recorded Confirmed Last Taken Type dronabinoL [Marinol] 2.5 mg PO UD 07/21/21 07/21/21 07/20/21 History Current Medications Generic Name Dose Route Start Last Admin Trade Name Freq PRN Reason Stop Dose Admin Acetaminophen 650 mg 07/21/21 18:23 07/22/21 19:31 Acetaminophen 325 Mg Tablet PO 08/20/21 18:22 650 mg Q4H PRN PRN Administration PAIN AND/OR FEVER Albuterol/Ipratropium 3 ml 07/21/21 18:23 Ipratropium/Albuterol Sulfate 3 Ml Ampul.Neb IH 08/20/21 18:22 Q4HPRN PRN SHORTNESS OF BREATH/WHEEZING Ezetimibe 10 mg 07/21/21 22:00 07/22/21 21:05 Ezetimibe 10 Mg Tab PO 08/20/21 21:59 10 mg HS DESI Administration Famotidine 20 mg 07/21/21 22:00 07/22/21 21:04 Famotidine 20 Mg Tablet PO 08/20/21 21:59 20 mg BID DESI Administration Furosemide 20 mg 07/22/21 12:00 07/22/21 12:05 Furosemide 20 Mg Tablet PO 08/21/21 11:59 20 mg DAILY DESI Administration Hydralazine HCl 50 mg 07/21/21 22:00 07/22/21 21:05 Hydralazine Hcl 25 Mg Tablet PO 08/20/21 21:59 50 mg BID DESI Administration Levofloxacin/Dextrose 500 mg in 100 mls @ 100 mls/hr 07/22/21 10:00 07/22/21 09:41 Levofloxacin 500mg/100ml D5w IV 08/21/21 09:59 100 mls/hr Q24H10 DESI Administration Insulin Human Lispro 0 unit 07/22/21 10:56 07/22/21 12:06 Insulin Lispro 1 Unit SQ 08/21/21 10:55 2 unit UD PRN Administration HYPERGLYCEMIA Insulin Human Lispro 8 unit 07/22/21 12:00 07/22/21 12:05 Insulin Lispro 1 Unit SQ 08/21/21 11:59 8 unit LUNCH DESI Administration Insulin Human Lispro 7 unit 07/22/21 18:00 01/01/22 17:31 Insulin Lispro 1 Unit SQ 08/21/21 17:59 7 unit EVENING MEAL DESI Administration Insulin Human Lispro 11 unit 07/23/21 08:00 Insulin Lispro 1 Unit SQ 08/22/21 07:59 BREAKFAST DESI Levothyroxine Sodium 75 mcg 07/22/21 12:00 07/22/21 12:05 Levothyroxine Sodium 75 Mcg Tablet PO 08/21/21 11:59 75 mcg DAILY DESI Administration Losartan Potassium 50 mg 07/22/21 12:00 07/22/21 12:05 Losartan Potassium 50 Mg Tablet PO 08/21/21 11:59 50 mg DAILY DESI Administration Ondansetron HCl 4 mg 07/21/21 21:13 Zofran 4 Mg/Udtablet Orally Disintegrating PO 08/20/21 21:12 TID PRN PRN NAUSEA/VOMITING Ondansetron HCl 4 mg 07/22/21 11:56 Zofran 4 Mg/Udtablet Orally Disintegrating PO 08/21/21 11:55 TID PRN PRN NAUSEA/VOMITING Pantoprazole Sodium 40 mg 07/22/21 10:00 07/22/21 09:41 Pantoprazole 40 Mg Vial IV 08/21/21 09:59 40 mg Q24H10 DESI Administration Patient Own Med: 0 each 07/22/21 12:00 Bydureon Bcise SQ 08/21/21 11:59 WEEKLY DESI Patient Own Med: 1 each 07/22/21 17:00 07/22/21 16:53 Marinol (Dronabinol) PO 08/21/21 16:59 1 each 2.5 Mg Cap TIDWM DESI Administration Rivaroxaban 20 mg 07/22/21 18:00 07/22/21 17:30 Rivaroxaban 10 Mg Tablet PO 08/21/21 17:59 20 mg EVENING MEAL DESI Administration Simvastatin 40 mg 07/22/21 22:00 07/22/21 21:05 Simvastatin 20 Mg Tablet PO 08/21/21 21:59 40 mg HS DESI Administration Tramadol HCl 50 mg 07/22/21 10:55 07/22/21 18:01 Tramadol Hcl 50 Mg Tablet PO 08/21/21 10:54 50 mg Q6H PRN PRN Administration PAIN Discontinued Medications Generic Name Dose Route Start Last Admin Trade Name Freq PRN Reason Stop Dose Admin Dextrose Confirm 07/21/21 12:14 Dextrose 50%-Water 50 Ml Abboject Administered 07/21/21 12:15 Dose 50 ml IV .STK-MED ONE Dextrose 50 ml 07/21/21 12:56 Dextrose 50%-Water 50 Ml Abboject IV 07/21/21 12:57 STAT ONE Dextrose 250 mls @ 30 mls/hr 07/21/21 12:30 Dextrose 10% 250 Ml IV 08/20/21 12:29 .Q8H20M DESI Sodium Chloride 1,000 mls @ 999 mls/hr 07/21/21 13:52 07/21/21 16:40 Sodium Chloride 0.9% 1000 Ml IV 07/21/21 14:52 Infused .Q1H1M STA Infusion Levofloxacin/Dextrose 500 mg in 100 mls @ 100 mls/hr 07/21/21 14:16 07/21/21 16:40 Levofloxacin 500mg/100ml D5w IV 07/21/21 15:15 Infused STAT STA Infusion Sodium Chloride Confirm 07/21/21 15:15 Sodium Chloride 0.9% 1000 Ml Administered 07/21/21 15:16 Dose 1,000 mls @ ud .ROUTE .STK-MED ONE Levofloxacin/Dextrose Confirm 07/21/21 15:16 Levofloxacin 500mg/100ml D5w Administered 07/21/21 15:17 Dose 500 mg in 100 mls @ ud IV .STK-MED ONE Simvastatin 80 mg 07/21/21 22:00 07/21/21 22:19 Simvastatin 20 Mg Tablet PO 07/21/21 22:01 80 mg ONCE ONE Administration Intake & Output (Last 24 hours) 07/20/21 07/21/21 07/22/21 07/23/21 11:59 11:59 11:59 11:59 Intake Total 540 720 Output Total 725 1250 Balance -185 -530 Weight 73.8 kg 76.4 kg Microbiology Results (Last 24 hours) 07/21/21 12:44 Urine, Void Urine Culture - Final Escherichia Coli 07/21/21 13:01 Blood Blood Culture Gram Stain - Final 07/21/21 13:01 Blood Blood Culture - Pending 07/21/21 13:12 Blood Blood Culture Gram Stain - Final 07/21/21 13:12 Blood Blood Culture - Pending Laboratory Results (Last 24 hours) 07/23/21 07/22/21 07/22/21 07:36 20:59 16:07 POC Glucometer 236 H 136 H 133 H Hemoglobin A1c 07/22/21 07/22/21 11:44 02:44 POC Glucometer 230 H Hemoglobin A1c 6.91 H Orders (Last 24 hours) Category Date Time Status Change admission status [Change to Full Admit] ROUTINE Care 07/22/21 09:53 Active Miscellaneous Nursing Order ROUTINE Care 07/22/21 11:34 Active Consult Podiatry ROUTINE Cons 07/22/21 11:00 Active POCT GLUCOSE Stat Lab 07/22/21 11:44 Completed POCT GLUCOSE Stat Lab 07/22/21 16:07 Completed POCT GLUCOSE Stat Lab 07/22/21 20:59 Completed POCT GLUCOSE Stat Lab 07/23/21 07:36 Completed Furosemide 20 mg [Lasix 20 mg] Med 07/22/21 12:00 Active 20 mg PO DAILY Insulin Lispro [Humalog] Med 07/23/21 08:00 Active 11 unit SQ BREAKFAST Insulin Lispro [Humalog] Med 07/22/21 18:00 Active 7 unit SQ EVENING MEAL Insulin Lispro [Humalog] Med 07/22/21 12:00 Active 8 unit SQ LUNCH Insulin Lispro [Humalog] Med 07/22/21 10:56 Active See Dose Instructions SQ UD PRN Levofloxacin [Levofloxacin 500MG/100ML D5W] Med 07/22/21 10:00 Active 500 mg in 100 ml IV Q24H10 Levothyroxine Sodium 75 Mcg [Synthroid 75 Mcg] Med 07/22/21 12:00 Active 75 mcg PO DAILY Losartan Potassium 50 mg [Cozaar 50 MG] Med 07/22/21 12:00 Active 50 mg PO DAILY Ondansetron ODT 4 MG [Zofran Odt 4 mg] Med 07/22/21 11:56 Active 4 mg PO TID PRN PRN Pantoprazole 40 mg [Protonix 40 mg IV] Med 07/22/21 10:00 Active 40 mg IV Q24H10 Patient Own Med [Patient Own Medication] Med 07/22/21 17:00 Active 1 each PO TIDWM Patient Own Med [Patient Own Medication] Med 07/22/21 12:00 Active See Dose Instructions SQ WEEKLY Rivaroxaban 10 mg Tablet [Xarelto 10 mg Tablet] Med 07/22/21 18:00 Active 20 mg PO EVENING MEAL Simvastatin 20Mg [Zocor 20Mg] Med 07/22/21 22:00 Active 40 mg PO HS Tramadol HCl 50 mg [Ultram 50 mg] Med 07/22/21 10:55 Active 50 mg PO Q6H PRN PRN Code(s): J18.9 - PNEUMONIA, UNSPECIFIED ORGANISM; A41.9 - SEPSIS, UNSPECIFIED ORGANISM (2) Elevated troponin Current Visit: Yes Status: Resolved Code(s): R74.8 - ABNORMAL LEVELS OF OTHER SERUM ENZYMES (3) Hypoglycemia Current Visit: Yes Status: Resolved Code(s): E16.2 - HYPOGLYCEMIA, UNSPECIFIED (4) Chest pain, rule out acute myocardial infarction Current Visit: No Status: Acute Code(s): R07.9 - CHEST PAIN, UNSPECIFIED (5) Congestive heart failure Current Visit: No Status: Acute Code(s): I50.9 - HEART FAILURE, UNSPECIFIED
[2021-07-23] MEDS: HUMALOG SQ SCH ×3 (08:30→17:50)
[2021-07-23] MEDS: HUMALOG SQ PRN ×2 (08:30→21:29)
[2021-07-23] MEDS: PATIENT OWN MEDICATION PO SCH ×3 (09:28→16:57)
[2021-07-23] MEDS: Apresoline 25 MG TABLET PO SCH ×2 (10:05→21:24)
[2021-07-23] MEDS: Cozaar 50 MG PO SCH (10:05)
[2021-07-23] MEDS: SYNTHROID 75 MCG PO SCH (10:05)
[2021-07-23] MEDS: LASIX 20 MG PO SCH (10:05)
[2021-07-23] MEDS: PROTONIX 40 MG IV IV SCH (10:05)
[2021-07-23] MEDS: Pepcid 20 MG PO SCH ×2 (10:05→21:24)
[2021-07-23] MEDS: ROCEPHIN 1 Gm-D5w 50 ml Bag** 1 G/50 ML IVPB IV SCH (10:09)
[2021-07-23] MEDS: XARELTO 10 MG TABLET PO SCH (17:51)
[2021-07-23] MEDS: Zetia 10 MG PO SCH (21:24)
[2021-07-23] MEDS: ZOCOR 20MG PO SCH (21:25)
[2021-07-24] MEDS: ULTRAM 50 MG PO PRN (00:51)
[2021-07-24] MEDS: HUMALOG SQ SCH ×2 (07:55→12:47)
[2021-07-24] MEDS: HUMALOG SQ PRN (07:56)
--- NOTE | 2021-07-24 08:00 | PCM.CONS ---
Podiatry HPI - Consult Date of Consultation Date: 07/24/21 Reason for Consult: Diabetic foot wound, stage II pressure ulceration left heel Consulting Provider: EZEKIEL COYNE [facility] History of Present Illness: Yoana is a very pleasant 71-year-old female who is seen at bedside today with admission for chest pain, hypoglycemia and elevated troponins. Patient has a complicated medical history with uncontrolled diabetes mellitus and peripheral vascular disease. 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 Valle. Since admission patient admits to feeling better however overall there is still generalized weakness and lethargy. She indicates that she developed the heel ulcer approximately 2 to 3 weeks ago however is not entirely sure. She indicates that there is no pain associated with the lesion. She currently denies any constitutional symptoms of infection. She currently denies any other pedal complaints Medications & Allergies Home Medications: Home Medication List Rivaroxaban [Xarelto] 20 mg PO EVENING MEAL 12/17/12 [History Confirmed 07/21/21] Atorvastatin Calcium [Lipitor] 80 mg PO QHS 09/02/18 [History Confirmed 07/21/21] Exenatide Microspheres [Bydureon Bcise] 2 mg SQ WEEKLY 09/02/18 [History Confirmed 07/21/21] Ezetimibe 10 mg PO QHS 09/02/18 [History Confirmed 07/21/21] Famotidine 20 mg [Pepcid 20 MG] 20 mg PO BID 09/02/18 [History Confirmed 07/21/21] Furosemide 20 mg [Lasix 20 mg] 20 mg PO DAILY 09/02/18 [History Confirmed 07/21/21] Hydralazine HCl 50 mg PO BID 09/02/18 [History Confirmed 07/21/21] Losartan Potassium 50 mg PO DAILY 09/02/18 [History Confirmed 07/21/21] Albuterol 2.5 mg/3 ml Neb [Proventil 2.5 mg/3 ml Neb] 2.5 mg IH QID PRN 05/07/19 [History Confirmed 07/21/21] Insulin Lispro [Humalog] 7 unit SQ EVENING MEAL 05/07/19 [History Confirmed 07/21/21] Insulin Lispro [Humalog] 8 unit SQ LUNCH 05/07/19 [History Confirmed 07/21/21] Insulin Lispro [Humalog] 11 unit SQ BREAKFAST 05/07/19 [History Confirmed 07/21/21] Levothyroxine Sodium [Synthroid] 75 mcg PO DAILY 05/07/19 [History Confirmed 07/21/21] ondansetron HCL [Zofran] 4 mg PO TID PRN #10 tablet 09/09/19 [Rx Confirmed 07/21/21] dronabinoL [Marinol] 2.5 mg PO UD 07/21/21 [History Confirmed 07/21/21] Allergies/Adverse Reactions: Allergies Allergy/AdvReac Type Severity Reaction Status Date / Time aspirin Allergy Verified 07/21/21 13:43 clorazepate dipotassium Allergy Verified 07/21/21 13:43 [From Tranxene T-Tab] codeine [Codeine] Allergy Verified 07/21/21 13:43 hydrocodone bitartrate Allergy Verified 07/21/21 13:43 [From Vicoprofen] ibuprofen [From Vicoprofen] Allergy Verified 07/21/21 13:43 latex Allergy Verified 07/21/21 13:43 Penicillins Allergy Verified 07/21/21 13:43 - Past Medical History Past Medical History: Yes Neurological History: Stroke ENT History: Cataracts Cardiac History: Arrhythmia, Congestive Heart Failure, Deep Vein Thrombosis, High Cholesterol Respiratory History: CHF, COPD, Sleep Apnea Endocrine Medical History: Diabetes Type II, Thyroid Cancer Musculoskelatal History: Other GI Medical History: Colorectal Cancer History: No Pertinent History Pyscho-Social History: No Pertinent History Reproductive Disorders: No Pertinent History Comment: hx of svt and had other arrythmias and recently had a pacemaker/defib put in, brown lung - Female History Are you now?: No - Past Surgical History Past Surgical History: Yes Neuro Surgical History: No Pertinent History Cardiac History: Internal Defibrillator, Pacemaker Respiratory Surgery: No Pertinent History GI Surgical History: Bowel Surgery, Colon Resection Genitourinary Surgical Hx: No Pertinent History Musculskeletal Surgical Hx: Amputation Female Surgical History: Hysterectomy Other Surgical History: breast reduction. hand. right foot left foot. heart ablation. thyroidectomy - Social History Smoking Status: Never smoker Exposure to second hand smoke: No Alcohol: None Drug Use: none Significant Family History: diabetes, hypertension Physical Exam - General General Appearance: no apparent distress - Neuro Neurologic: Other (Absent epicritic and protopathic sensation) - Vascular Peripheral Pulses: Posterior tibialis: 0, Dorsalis-Pedis: 0 Capillary Refill Time: < 3 seconds Hair Growth: None Varicosities: Negtive Edema: None Skin: Supple, not atrophic - Muscular Foot Type: pes planu Muscle Strength: 5/5 on all 4 quadrants - Narrative Narrative Physical Exam: Podiatry Physical Exam Dermatological: Lesion to the posterior O medial heel measuring approximately 2.5 x 2.0 with deroofed bulla. Purulent drainage on compression of the bulla depth is fairly superficial at this time measuring 0.3. Classifying this as a stage II pressure ulceration. With surrounding deep tissue injury Results - Labs Lab/Micro Results: Lab Results-Last 24 Hours 07/23/21 07/23/21 07/23/21 Range/Units 11:39 16:48 21:13 POC Glucometer 108 H 166 H 242 H (74 to 106) mg/dL 07/24/21 Range/Units 07:40 POC Glucometer 202 H (74 to 106) mg/dL Microbiology 07/21/21 13:12 Blood Culture Gram Stain - Final Blood Blood Culture - Preliminary GRAM POSITIVE ID AND SENSITIVITY PENDING 07/21/21 13:01 Blood Culture Gram Stain - Final Blood Blood Culture - Final STAPH HOMINIS ssp HOMINIS 07/21/21 12:44 Urine Culture - Final Urine, Void Escherichia Coli Accuchecks Date 07/23/21 Date 07/23/21 Date 07/23/21 Time 21:30 Time 16:56 Time 11:47 Assessment/Plan (1) Stage II pressure ulcer of heel Current Visit: Yes Status: Acute Assessment & Plan: Initial patient examination and evaluation. Radiographs to assess for potential OM however at this time highly unlikely secondary to timeline and appearance of ulceration Will obtain previous peripheral vascular intervention as patient indicates she has had multiple interventions with Dr. Valle at [facility]. Most recent intervention was above-knee amputation to right lower extremity. New noninvasive vascular studies to left lower extremity to assess wound healing potential. Wound culture at purulent margins for antibiotic regimen Dressing changes consisting of Betadine Adaptic 4 x 4 and dry sterile dressing with minimal compression Offload heels. Prevalon boot order for discharge when nonweightbearing We will potentially provide bedside debridement if vascular studies are supportive of potential wound healing otherwise we will proceed with conservative wound care at this time. We will follow closely till discharge. Weekly Follow-up on discharge Code(s): L89.602 - PRESSURE ULCER OF UNSPECIFIED HEEL, STAGE 2 (2) Diabetic peripheral neuropathy associated with type 2 diabetes mellitus Current Visit: Yes Status: Acute Code(s): E11.42 - TYPE 2 DIABETES MELLITUS WITH DIABETIC POLYNEUROPATHY (3) History of above-knee amputation of right lower extremity Current Visit: Yes Status: Acute Code(s): Z89.611 - ACQUIRED ABSENCE OF RIGHT LEG ABOVE KNEE
[2021-07-24] MEDS: SYNTHROID 75 MCG PO SCH (09:44)
[2021-07-24] MEDS: Pepcid 20 MG PO SCH (09:44)
[2021-07-24] MEDS: PROTONIX 40 MG IV IV SCH (09:44)
[2021-07-24] MEDS: ROCEPHIN 1 Gm-D5w 50 ml Bag** 1 G/50 ML IVPB IV SCH (09:44)
[2021-07-24] MEDS: Cozaar 50 MG PO SCH (09:44)
[2021-07-24] MEDS: LASIX 20 MG PO SCH (09:44)
[2021-07-24] MEDS: Apresoline 25 MG TABLET PO SCH (09:45)
--- NOTE | 2021-07-24 10:47 | XRAY ---
Indication: Peripheral vascular disease. Right below knee amputation. Left heel ulcer. History diabetes. Two-dimensional sonogram and color Doppler imaging of the major arteries of the left leg performed. Comparison: None Left leg demonstrate widely patent common femoral, deep femoral, superficial femoral, and popliteal arteries with multiphasic arterial waveforms. Posterior tibial artery and arterial waveforms are markedly attenuated with monophasic arterial waveform. Dorsal pedal artery occluded. Impression: Occluded dorsal pedal artery and attenuated posterior tibial artery better evaluated with CTA abdominal aorta and runoff exam. Remaining left leg arterial sonogram negative for critical stenosis/obstruction.
--- NOTE | 2021-07-24 10:49 | XRAY ---
Indication: Peripheral vascular disease. Right below knee amputation. Left heel ulcer. History diabetes. Right arm brachial pressure is 149. Left arm brachial pressure is 126. Left ankle pressure is 77. Ankle brachial index is 0.52 favoring moderate ischemic disease. Impression: Left BASILIA is 0.52 favoring moderate ischemic disease. CTA abdominal aorta with runoff may yield further information.
[2021-07-24] MEDS: PATIENT OWN MEDICATION PO SCH (12:43)
[2021-07-24 13:27] VITALS: BP 104/53; PULSE 74; O2SAT 97
--- NOTE | 2021-08-06 08:54 | PCM.DS ---
Discharge Summary Date of Admission: 07/22/21 09:53 Admitting Physician: JIMI DOMINIQUE Consults: Consults on Case 07/22/21 11:00 Consult Podiatry ROUTINE Primary Care Provider: [employer] Allergies Allergies aspirin Allergy (Verified 07/21/21 13:43) clorazepate dipotassium [From Tranxene T-Tab] Allergy (Verified 07/21/21 13:43) codeine [Codeine] Allergy (Verified 07/21/21 13:43) hydrocodone bitartrate [From Vicoprofen] Allergy (Verified 07/21/21 13:43) ibuprofen [From Vicoprofen] Allergy (Verified 07/21/21 13:43) latex Allergy (Verified 07/21/21 13:43) Penicillins Allergy (Verified 07/21/21 13:43) Hospital Summary - Hospital Course Hospital Course: Chief Complaint Diagnosis Sepsis, pneumonia, hypoglycemia Allergies Allergy/AdvReac Type Severity Reaction Status Date / Time aspirin Allergy Verified 07/21/21 13:43 clorazepate dipotassium Allergy Verified 07/21/21 13:43 [From Tranxene T-Tab] codeine [Codeine] Allergy Verified 07/21/21 13:43 hydrocodone bitartrate Allergy Verified 07/21/21 13:43 [From Vicoprofen] ibuprofen [From Vicoprofen] Allergy Verified 07/21/21 13:43 latex Allergy Verified 07/21/21 13:43 Penicillins Allergy Verified 07/21/21 13:43 Home Medications Medication Instructions Recorded Confirmed Last Taken Type dronabinoL [Marinol] 2.5 mg PO UD 07/21/21 07/21/21 07/20/21 History Ciprofloxacin [Cipro 500 MG] 250 mg PO BID 5 Days #10 tablet 07/24/21 Unknown Rx Current Medications Discontinued Medications Generic Name Dose Route Start Last Admin Trade Name Freq PRN Reason Stop Dose Admin Acetaminophen 650 mg 07/21/21 18:23 07/22/21 19:31 Acetaminophen 325 Mg Tablet PO 08/20/21 18:22 650 mg Q4H PRN PRN Administration PAIN AND/OR FEVER Albuterol/Ipratropium 3 ml 07/21/21 18:23 Ipratropium/Albuterol Sulfate 3 Ml Ampul.Neb IH 08/20/21 18:22 Q4HPRN PRN SHORTNESS OF BREATH/WHEEZING Dextrose Confirm 07/21/21 12:14 Dextrose 50%-Water 50 Ml Abboject Administered 07/21/21 12:15 Dose 50 ml IV .STK-MED ONE Dextrose 50 ml 07/21/21 12:56 Dextrose 50%-Water 50 Ml Abboject IV 07/21/21 12:57 STAT ONE Ezetimibe 10 mg 07/21/21 22:00 07/23/21 21:24 Ezetimibe 10 Mg Tab PO 08/20/21 21:59 10 mg HS DESI Administration Famotidine 20 mg 07/21/21 22:00 07/24/21 09:44 Famotidine 20 Mg Tablet PO 08/20/21 21:59 20 mg BID DESI Administration Furosemide 20 mg 07/22/21 12:00 07/24/21 09:44 Furosemide 20 Mg Tablet PO 08/21/21 11:59 20 mg DAILY DESI Administration Hydralazine HCl 50 mg 07/21/21 22:00 07/24/21 09:45 Hydralazine Hcl 25 Mg Tablet PO 08/20/21 21:59 50 mg BID DESI Administration Dextrose 250 mls @ 30 mls/hr 07/21/21 12:30 Dextrose 10% 250 Ml IV 08/20/21 12:29 .Q8H20M DESI Sodium Chloride 1,000 mls @ 999 mls/hr 07/21/21 13:52 07/21/21 16:40 Sodium Chloride 0.9% 1000 Ml IV 07/21/21 14:52 Infused .Q1H1M STA Infusion Levofloxacin/Dextrose 500 mg in 100 mls @ 100 mls/hr 07/21/21 14:16 07/21/21 16:40 Levofloxacin 500mg/100ml D5w IV 07/21/21 15:15 Infused STAT STA Infusion Sodium Chloride Confirm 07/21/21 15:15 Sodium Chloride 0.9% 1000 Ml Administered 07/21/21 15:16 Dose 1,000 mls @ ud .ROUTE .STK-MED ONE Levofloxacin/Dextrose Confirm 07/21/21 15:16 Levofloxacin 500mg/100ml D5w Administered 07/21/21 15:17 Dose 500 mg in 100 mls @ ud IV .STK-MED ONE Levofloxacin/Dextrose 500 mg in 100 mls @ 100 mls/hr 07/22/21 10:00 07/22/21 09:41 Levofloxacin 500mg/100ml D5w IV 08/21/21 09:59 100 mls/hr Q24H10 DESI Administration Ceftriaxone Sodium/Dextrose 1 g in 50 mls @ 100 mls/hr 07/23/21 10:00 07/24/21 09:44 Rocephin 1 Gm-D5w 50 Ml Bag IV 07/26/21 09:59 100 mls/hr Q24H10 DESI Administration Insulin Human Lispro 0 unit 07/22/21 10:56 07/24/21 07:56 Insulin Lispro 1 Unit SQ 08/21/21 10:55 2 unit UD PRN Administration HYPERGLYCEMIA Insulin Human Lispro 8 unit 07/22/21 12:00 07/24/21 12:47 Insulin Lispro 1 Unit SQ 08/21/21 11:59 8 unit LUNCH DESI Administration Insulin Human Lispro 7 unit 07/22/21 18:00 07/23/21 17:50 Insulin Lispro 1 Unit SQ 08/21/21 17:59 7 unit EVENING MEAL DESI Administration Insulin Human Lispro 11 unit 07/23/21 08:00 07/24/21 07:55 Insulin Lispro 1 Unit SQ 08/22/21 07:59 11 unit BREAKFAST DESI Administration Levothyroxine Sodium 75 mcg 07/22/21 12:00 07/24/21 09:44 Levothyroxine Sodium 75 Mcg Tablet PO 08/21/21 11:59 75 mcg DAILY DESI Administration Losartan Potassium 50 mg 07/22/21 12:00 07/24/21 09:44 Losartan Potassium 50 Mg Tablet PO 08/21/21 11:59 50 mg DAILY DESI Administration Ondansetron HCl 4 mg 07/21/21 21:13 Zofran 4 Mg/Udtablet Orally Disintegrating PO 08/20/21 21:12 TID PRN PRN NAUSEA/VOMITING Ondansetron HCl 4 mg 07/22/21 11:56 Zofran 4 Mg/Udtablet Orally Disintegrating PO 08/21/21 11:55 TID PRN PRN NAUSEA/VOMITING Pantoprazole Sodium 40 mg 07/22/21 10:00 07/24/21 09:44 Pantoprazole 40 Mg Vial IV 08/21/21 09:59 40 mg Q24H10 DESI Administration Patient Own Med: 0 each 07/22/21 12:00 Bydureon Bcise SQ 08/21/21 11:59 WEEKLY [facility] Patient Own Med: 1 each 07/22/21 17:00 07/23/21 09:28 Marinol (Dronabinol) PO 08/21/21 16:59 Not Given 2.5 Mg Cap TIDWM [facility] Patient Own Medication 1 each 07/23/21 11:00 07/24/21 12:43 Patient Own Med Misc PO 08/22/21 10:59 1 each 11,16 DESI Administration Rivaroxaban 20 mg 07/22/21 18:00 07/23/21 17:51 Rivaroxaban 10 Mg Tablet PO 08/21/21 17:59 20 mg EVENING MEAL DESI Administration Simvastatin 80 mg 07/21/21 22:00 07/21/21 22:19 Simvastatin 20 Mg Tablet PO 07/21/21 22:01 80 mg ONCE ONE Administration Simvastatin 40 mg 07/22/21 22:00 07/23/21 21:25 Simvastatin 20 Mg Tablet PO 08/21/21 21:59 40 mg HS DESI Administration Tramadol HCl 50 mg 07/22/21 10:55 07/24/21 00:51 Tramadol Hcl 50 Mg Tablet PO 08/21/21 10:54 50 mg Q6H PRN PRN Administration PAIN - Vitals & Intake/Output Vital Signs: Vital Signs Temperature 98.0 F 07/24/21 12:00 Pulse Rate 74 07/24/21 12:00 Respiratory Rate 14 07/24/21 12:00 Blood Pressure 104/53 07/24/21 12:00 O2 Sat by Pulse Oximetry 97 07/24/21 12:00 - Lab Result Diagrams: 07/22/21 01:30 07/22/21 01:30 Micro Results-Entire Visit: Microbiology 07/24/21 Unknown Wound Culture - Final Heel - Left Acinetobacter Species 07/21/21 13:12 Blood Culture Gram Stain - Final Blood Blood Culture - Final Staphylococcus Capitis 07/21/21 13:01 Blood Culture Gram Stain - Final Blood Blood Culture - Final STAPH HOMINIS ssp HOMINIS 07/21/21 12:44 Urine Culture - Final Urine, Void Escherichia Coli - Procedures and Test Procedures and Tests throughout Hospitalization: Therapy Orders & Screens 07/21/21 18:23 Oxygen Nasal Cannula 2 lpm Comment: 07/21/21 21:42 Respiratory Therapy Assessment DAILY Comment: Diagnosis: Sepsis pneumonia, hypoglycemia 07/22/21 00:35 OT Screen per Nursing Assess ONCE Comment: Protocol Order Physician Instructions: Greater than 3 points order OT Admission Screening Reason For Exam: Triggered on Admission Diagnosis: Sepsis pneumonia, hypoglycemia Open Wound/Cellutlitis/Pressure Ulcers: Yes Acute Fx/ORIF/Change in wt bearing status: No Severe MUSCULOSKELETAL pain: No ADL Dysfunction: No Acute CVA w/Hemiparesis/Hemiplegia: No Decreased Functional Mobility/Strength: No Sprain/Strain: No Acute Post-op Mobility Dysfunction: No Total Points: 5 PT Screen per Nursing Assess ONCE Comment: Protocol Order Physician Instructions: Greater than 3 points order PT Admission Screenin Reason For Exam: Triggered on Admission Diagnosis: Sepsis pneumonia, hypoglycemia Open Wound/Cellutlitis/Pressure Ulcers: Yes Acute Fx/ORIF/Change in wt bearing status: No Severe MUSCULOSKELETAL pain: No ADL Dysfunction: No Acute CVA w/Hemiparesis/Hemiplegia: No Decreased Functional Mobility/Strength: No Sprain/Strain: No Acute Post-op Mobility Dysfunction: No Total Points: 5 Discharge Exam General Appearance: no apparent distress, alert Neurologic Exam: alert, oriented x 3, cooperative, normal mood/affect, nml cerebellar function, sensation nml, No motor deficits Eye Exam: PERRL, EOMI, eyes nml inspection Ears, Nose, Throat Exam: normal ENT inspection, pharynx normal, moist mucous membranes Neck Exam: normal inspection, non-tender, supple, full range of motion Respiratory Exam: normal breath sounds, lungs clear, No respiratory distress Cardiovascular Exam: regular rate/rhythm, normal heart sounds Gastrointestinal/Abdomen Exam: soft, No tenderness, No mass Pelvic Exam: deferred Rectal Exam: deferred Back Exam: normal inspection, normal range of motion, No CVA tenderness, No vertebral tenderness Extremity Exam: normal inspection, normal range of motion Skin Exam: normal color, warm, dry Final Diagnosis/Problem List - Final Discharge Diagnosis/Problem (1) Sepsis due to pneumonia Status: Resolved Code(s): J18.9 - PNEUMONIA, UNSPECIFIED ORGANISM; A41.9 - SEPSIS, UNSPECIFIED ORGANISM (2) Elevated troponin Status: Resolved Code(s): R74.8 - ABNORMAL LEVELS OF OTHER SERUM ENZYMES (3) Hypoglycemia Status: Resolved Code(s): E16.2 - HYPOGLYCEMIA, UNSPECIFIED (4) Chest pain, rule out acute myocardial infarction Status: Resolved Code(s): R07.9 - CHEST PAIN, UNSPECIFIED (5) Congestive heart failure Status: Chronic Code(s): I50.9 - HEART FAILURE, UNSPECIFIED - Discharge Discharge Date: 07/24/21 Disposition: Home Health @ Other In State Condition: Stable Prescriptions: New Ciprofloxacin [Cipro 500 MG] 250 mg PO BID 5 Days #10 tablet No Action Rivaroxaban [Xarelto] 20 mg PO EVENING MEAL Famotidine 20 mg [Pepcid 20 MG] 20 mg PO BID Ezetimibe 10 mg PO QHS Losartan Potassium 50 mg PO DAILY Furosemide 20 mg [Lasix 20 mg] 20 mg PO DAILY Atorvastatin Calcium [Lipitor] 80 mg PO QHS Hydralazine HCl 50 mg PO BID Exenatide Microspheres [Bydureon Bcise] 2 mg SQ WEEKLY Albuterol 2.5 mg/3 ml Neb [Proventil 2.5 mg/3 ml Neb] 2.5 mg IH QID PRN Insulin Lispro [Humalog] 7 unit SQ EVENING MEAL Insulin Lispro [Humalog] 8 unit SQ LUNCH Insulin Lispro [Humalog] 11 unit SQ BREAKFAST Levothyroxine Sodium [Synthroid] 75 mcg PO DAILY ondansetron HCL [Zofran] 4 mg PO TID PRN #10 tablet PRN Reason: Nausea/Vomiting dronabinoL [Marinol] 2.5 mg PO UD Instructions: Urinary Tract Infection, Adult (DC), Wound Care (DC), Diabetes and Diet Additional Instructions: WEAR PREVALON BOOT ON LEFT HEEL WHEN NONWEIGHTBEARING ORDER FOR PREVALON BOOT FOR LEFT HEEL SENT TO [facility]- THEIR PHONE NUMBER IS [phone] WHILE WAITING FOR PREVALON BOOT OR IF UNABLE TO GET PREVALON BOOT-KEEP LEFT HEEL ELEVATED UP AT ALL TIMES WHEN NOT WEIGHT BEARING DRESSING CHANGES ON SATURDAY, SATURDAY, SATURDAY PER [facility] Follow up with: ANALI MONTGOMERY [NON-STAFF PHY W/O PRIVILEGES] - (OFFICE CLOSED TODAY, PATIENT WILL NEED TO CALL AND MAKE APPOINTMENT [phone]) MANASA MCKEON DPM [ACTIVE STAFF] - 08/02/21 8:30 am Forms: Discharge Instructions
== END 2021-07-24 16:06 | disposition home health service (06) | DRG 193 ==
LOC: ED 12:08 → MED SURG 18:17 → OBSVTOIN 07-22 09:53
PROVIDERS: ADMIT General Practice; ATTEND General Practice
DX: J18.9 Pneumonia, unspecified organism (principal); A41.9 Sepsis, unspecified organism; E16.2 Hypoglycemia, unspecified; E11.42 Type 2 diabetes mellitus with diabetic polyneuropathy; E11.65 Type 2 diabetes mellitus with hyperglycemia; R07.9 Chest pain, unspecified; R77.8 Other specified abnormalities of plasma proteins; R41.82 Altered mental status, unspecified; L89.622 Pressure ulcer of left heel, stage 2; J44.9 Chronic obstructive pulmonary disease, unspecified; I50.9 Heart failure, unspecified; E78.00 Pure hypercholesterolemia, unspecified; Z79.899 Other long term (current) drug therapy; Z89.611 Acquired absence of right leg above knee; Z20.828 Contact with and (suspected) exposure to other viral communicable diseases
CPT/HCPCS: 0241U; 36415; 51702; 70450; 71045; 80053; 81001; 82947; 83036; 83605; 83735; 83880; 84484; 85025; 87040; 87070; 87077; 87086; 87186; 93005; 93041; 93268; 93922; 93926; 94760; 96360; 99252; 99285; G0378; J0696; J1817; J1956; A9270-GY

== ENCOUNTER 2021-08-29 20:04 | Emergency (ER) | payer MEDICARE ==
[2021-08-29 20:09] VITALS: O2SAT 99
[2021-08-29 20:40] LABS: Absolute Neutrophil Ct (ANC) 8.33 (1.4-6.9); Basophil (Absolute #) 0.04 (0-0.4); Eosinophil % 1.6 % (0.00-5.0); Eosinophil (Absolute #) 0.17 (0-0.5); Hemoglobin 13.2 gm/dl (12.0-16.0); Lymphocyte (Absolute #) 1.86 (1.0-4.6); Mean Cell Volume 96.9 fl (78-100); Mean Platelet Volume 9.4 fl (7.5-11.0); Monocyte (Absolute #) 0.52 (0.0-1.3); Monocytes % 4.8 % (0.0-12.0); Neutrophil % 76.2 % (36.0-66.0); Platelet Count 166 K/mm3 (150-450); Red Blood Count 4.13 M/mm3 (4.1-5.4); Red Cell Distribution Width 14.9 % (11.5-14.0); White Blood Count 10.9 K/mm3 (4.0-10.5)
[2021-08-29 20:47] LABS: INR 1.71 (0.8-3.0); PROTIME 20.2 SECONDS (9.4-12.5)
[2021-08-29 20:49] LABS: PTT 43.7 SECONDS (25.1-36.5)
[2021-08-29 20:53] LABS: ALBUMIN 3.9 g/dL (3.5-5.0); BILIRUBIN,TOTAL 0.8 mg/dL (0.2-1.3); Creatinine 1 0.98 mg/dL (0.52-1.04); EST GLOMERULAR FILTRATION RATE 59.1 ML/MIN; Potassium 4.6 mmol/L (3.5-5.1); Total Protein 7.2 g/dL (6.3-8.2)
--- NOTE | 2021-08-29 21:52 | ERPHSYRPT ---
- History of Present Illness Source: patient Exam Limitations: other (Poor historian) Patient Subjective Stated Complaint: rt arm pain Triage Nursing Assessment: pt c/o rt arm pain and numbnes to fingers on rt hand. 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 Unable to feel rt radial or brachial pulse. Unable to get rt radial or brachial pulse with doppler. Rt arm and hand are cold but equally cold to left. Pt unable to feel light pressure but deep and sharp pressure is impaired to rt arm, absent to rt hand. Physician History: 71 yo wf cc of acute onset of RUE pain w numbness/weakness while eating her dinner. She denies LE weakness/chest pain/dyspnea/cough/fever. Pt is a diabetic w extensive h/o PVD. She has a R AKa and is on Xaralto. Pt denies injury and has never had this pain before. Nurses unable to palpate radial/brachial pulse. Occurred: other (18:45) Method of Injury: unknown Quality: aching Severity of Pain-Max: severe Severity of Pain-Current: severe Extremities Pain Location: shoulder: right, arm: right, elbow: right, forearm: right, wrist: right, hand: right Modifying Factors: Improves With: movement Associated Symptoms: other (No injury) Allergies/Adverse Reactions: aspirin Allergy (Verified 08/29/21 20:28) clorazepate dipotassium [From Tranxene T-Tab] Allergy (Verified 08/29/21 20:28) codeine [Codeine] Allergy (Verified 08/29/21 20:28) hydrocodone bitartrate [From Vicoprofen] Allergy (Verified 08/29/21 20:28) ibuprofen [From Vicoprofen] Allergy (Verified 08/29/21 20:28) latex Allergy (Verified 08/29/21 20:28) Penicillins Allergy (Verified 08/29/21 20:28) Home Medications: Rivaroxaban [Xarelto] 20 mg PO EVENING MEAL 12/17/12 [History] Atorvastatin Calcium [Lipitor] 80 mg PO QHS 09/02/18 [History] Exenatide Microspheres [Bydureon Bcise] 2 mg SQ WEEKLY 09/02/18 [History] Ezetimibe 10 mg PO QHS 09/02/18 [History] Famotidine 20 mg [Pepcid 20 MG] 20 mg PO BID 09/02/18 [History] Furosemide 20 mg [Lasix 20 mg] 20 mg PO DAILY 09/02/18 [History] Hydralazine HCl 50 mg PO BID 09/02/18 [History] Losartan Potassium 50 mg PO DAILY 09/02/18 [History] Albuterol 2.5 mg/3 ml Neb [Proventil 2.5 mg/3 ml Neb] 2.5 mg IH QID PRN 05/07/19 [History] Insulin Lispro [Humalog] 7 unit SQ EVENING MEAL 05/07/19 [History] Insulin Lispro [Humalog] 8 unit SQ LUNCH 05/07/19 [History] Insulin Lispro [Humalog] 11 unit SQ BREAKFAST 05/07/19 [History] Levothyroxine Sodium [Synthroid] 75 mcg PO DAILY 05/07/19 [History] dronabinoL [Marinol] 2.5 mg PO UD 07/21/21 [History] Hx Tetanus, Diphtheria Vaccination/Date Given: Yes Hx Influenza Vaccination/Date Given: Yes Hx Pneumococcal Vaccination/Date Given: Yes Immunizations Up to Date: Yes Travel Risk - International Travel Have you traveled outside of the country in past 3 weeks: No - Coronavirus Screening Are you exhibiting any of the following symptoms?: No Close contact with a COVID-19 positive Pt in past 14-21 Days: No - Vaccine Status Have you recieved a Covid-19 vaccination: No - Review of Systems Constitutional: No Symptoms Eyes: No Symptoms Ears, Nose, & Throat: No Symptoms Respiratory: No Symptoms Cardiac: No Symptoms Abdominal/Gastrointestinal: No Symptoms Genitourinary Symptoms: No Symptoms Skin: No Symptoms Neurological: No Symptoms Psychological: No Symptoms Endocrine: No Symptoms Hematologic/Lymphatic: No Symptoms Immunological/Allergic: No Symptoms - Past Medical History Pertinent Past Medical History: Yes Neurological History: Stroke, TIA ENT History: Cataracts Cardiac History: Arrhythmia, Congestive Heart Failure, Deep Vein Thrombosis, High Cholesterol Respiratory History: CHF, COPD, Sleep Apnea Endocrine Medical History: Diabetes Type II Musculoskeletal History: Other GI Medical History: Colorectal Cancer History: No Pertinent History Psycho-Social History: No Pertinent History Female Reproductive Disorders: No Pertinent History Other Medical History: hx of svt and had other arrythmias and recently had a pacemaker/defib put in, brown lung - Past Surgical History Past Surgical History: Yes Neuro Surgical History: No Pertinent History Cardiac: Internal Defibrillator, Pacemaker Respiratory: No Pertinent History Gastrointestinal: Bowel Surgery, Colon Resection Genitourinary: No Pertinent History Musculoskeletal: Amputation Female Surgical History: Hysterectomy Other Surgical History: breast reduction. hand. right foot left foot. heart ablation. thyroidectomy - Social History Smoking Status: Never smoker Exposure to second hand smoke: No Alcohol Use: None Drug Use: none Patient Lives Alone: No Significant Family History: diabetes, hypertension - Female History Hx Now: No - Nursing Vital Signs Nursing Vital Signs: Initial Vital Signs Temperature 97.4 F 08/29/21 20:05 Pulse Rate 68 08/29/21 20:05 Respiratory Rate 18 08/29/21 20:05 Blood Pressure 93/65 08/29/21 20:05 O2 Sat by Pulse Oximetry 99 08/29/21 20:05 Pain Scale Pain Intensity 6 Borderline hypotension - Physical Exam General Appearance: mild distress Eyes, Ears, Nose, Throat Exam: normal ENT inspection, TMs normal, pharynx normal, moist mucous membranes Neck Exam: normal inspection, non-tender, supple, full range of motion, No Brudzinski, No Kernig's, No meningismus, No carotid bruit Cardiovascular/Respiratory Exam: normal breath sounds, regular rate/rhythm, heart sounds normal Abdominal Exam: non-tender, soft Back Exam: normal inspection, normal range of motion, No vertebral tenderness Shoulder Exam: normal inspection Elbow/Forearm Exam: pain (Pt's forearm mottled/unable to palpate axillary/brachial/radial/ulnar artery/Gripe strength decreased L hand) DTR - Upper Extremity Exam: bicep (R): 2+, bicep (L): 2+ Neuro/Tendon Exam: no evidence tendon injury, motor deficit (R hand/forearm decrease in strength) Mental Status Exam: alert, oriented x 3, cooperative Skin Exam: cyanosis (R hand/forearm) SpO2 Interpretation: normal SpO2: 99 O2 Delivery: Room Air - Course Nursing assessment & vital signs reviewed: Yes EKG Interpreted by Me: RATE (Paced/Prolonged QT-QTc/Flat T-waves) - CT Exams Head CT Interpretation: Discussed w/radiologist (NAD/Old remote lacunar infarcts) - Radiology Ultrasound Exam Arterial Upper Extremity Ultrasound: Other (R axillary artery occlusion per US tech/No radial-ulnar flow) Ordered Tests: Active Orders 24 hr Category Date Time Status EKG-ER Only STAT Care 08/29/21 20:25 Completed ARTERIAL UNILAT/LTD UPPER EXT [US] Routine Exams 08/29/21 23:23 Taken HEAD WITHOUT CONTRAST [CT] Stat Exams 08/29/21 21:38 Taken CBC W DIFF Stat Lab 08/29/21 20:36 Completed CMP Stat Lab 08/29/21 20:36 Completed PROTIME WITH INR Stat Lab 08/29/21 20:36 Completed PTT Stat Lab 08/29/21 20:36 Completed TROPONIN Q3H Lab 08/29/21 20:36 Completed TROPONIN Q3H Lab 08/29/21 23:30 Completed TROPONIN Q3H Lab 08/30/21 02:30 Ordered TROPONIN Q3H Lab 08/30/21 05:30 Ordered TROPONIN Q3H Lab 08/30/21 08:30 Ordered Medication Summary Discontinued Medications Generic Name Dose Route Start Last Admin Trade Name Freq PRN Reason Stop Dose Admin Fentanyl Citrate 25 mcg 08/29/21 22:01 08/29/21 22:08 Fentanyl Citrate 100 Mcg/2 Ml* Vial IV 08/29/21 22:02 25 mcg STAT ONE Administration Fentanyl Citrate Confirm 08/29/21 22:06 Fentanyl Citrate 100 Mcg/2 Ml* Vial Administered 08/29/21 22:07 Dose 100 mcg .ROUTE .STK-MED ONE Heparin Sodium (Beef Lung) 5,000 unit 08/29/21 23:27 08/29/21 23:42 Heparin 5000 Unit/0.5 Ml Syringe IV 08/29/21 23:28 5,000 unit STAT ONE Administration Heparin Sodium (Beef Lung) Confirm 08/29/21 23:33 Heparin 5000 Unit/0.5 Ml Syringe Administered 08/29/21 23:34 Dose 5,000 unit .ROUTE .STK-MED ONE Heparin Sodium/Dextrose 25,000 units in 250 mls @ 10 mls/hr 08/29/21 23:30 08/29/21 23:43 Heparin 25,000 Units/D5w 250ml Premix IV 09/28/21 23:29 10 ml/hr .Q24H DESI 10 mls/hr Administration Heparin Sodium/Dextrose Confirm 08/29/21 23:34 Heparin 25,000 Units/D5w 250ml Premix Administered 08/29/21 23:35 Dose 25,000 units in 250 mls @ ud IV .STK-MED ONE Ondansetron HCl 4 mg 08/29/21 22:02 08/29/21 22:08 Ondansetron Hcl 4 Mg/2 Ml Vial IV 08/29/21 22:03 4 mg STAT ONE Administration Ondansetron HCl Confirm 08/29/21 22:05 Ondansetron Hcl 4 Mg/2 Ml Vial Administered 08/29/21 22:06 Dose 4 mg .ROUTE .STK-MED ONE Lab/Rad Data: Laboratory Result Diagrams 08/29/21 20:36 08/29/21 20:36 Laboratory Results 08/29/21 08/29/21 08/29/21 Range/Units 23:30 20:36 20:36 WBC (4.0-10.5) K/mm3 RBC (4.1-5.4) M/mm3 Hgb (12.0-16.0) gm/dl Hct (35-47) % MCV (78-100) fl MCH (26-32) pg MCHC (32-36) g/dl RDW (11.5-14.0) % Plt Count (150-450) K/mm3 MPV (7.5-11.0) fl Gran % (36.0-66.0) % Eos # (Auto) (0-0.5) Absolute Lymphs (auto) (1.0-4.6) Absolute Monos (auto) (0.0-1.3) Lymphocytes % (24.0-44.0) % Monocytes % (0.0-12.0) % Eosinophils % (0.00-5.0) % Basophils % (0.0-0.4) % Absolute Granulocytes (1.4-6.9) Basophils # (0-0.4) PT 20.2 H (9.4-12.5) SECONDS INR 1.71 (0.8-3.0) APTT 43.7 H (25.1-36.5) SECONDS Sodium (137-145) mmol/L Potassium (3.5-5.1) mmol/L Chloride (98-107) mmol/L Carbon Dioxide (22-30) mmol/L Anion Gap (5-15) MEQ/L BUN (7-17) mg/dL Creatinine (0.52-1.04) mg/dL Estimated GFR ML/MIN Glucose (74-106) mg/dL Calcium (8.4-10.2) mg/dL Total Bilirubin (0.2-1.3) mg/dL AST (14-36) U/L ALT (0-35) U/L Alkaline Phosphatase (38-126) U/L Troponin I 0.030 0.031 (0.000-0.034) ng/mL Serum Total Protein (6.3-8.2) g/dL Albumin (3.5-5.0) g/dL 08/29/21 08/29/21 Range/Units 20:36 20:36 WBC 10.9 H (4.0-10.5) K/mm3 RBC 4.13 (4.1-5.4) M/mm3 Hgb 13.2 (12.0-16.0) gm/dl Hct 40.0 (35-47) % MCV 96.9 (78-100) fl MCH 32.0 (26-32) pg MCHC 33.0 (32-36) g/dl RDW 14.9 H (11.5-14.0) % Plt Count 166 (150-450) K/mm3 MPV 9.4 (7.5-11.0) fl Gran % 76.2 H (36.0-66.0) % Eos # (Auto) 0.17 (0-0.5) Absolute Lymphs (auto) 1.86 (1.0-4.6) Absolute Monos (auto) 0.52 (0.0-1.3) Lymphocytes % 17.0 L (24.0-44.0) % Monocytes % 4.8 (0.0-12.0) % Eosinophils % 1.6 (0.00-5.0) % Basophils % 0.4 (0.0-0.4) % Absolute Granulocytes 8.33 H (1.4-6.9) Basophils # 0.04 (0-0.4) PT (9.4-12.5) SECONDS INR (0.8-3.0) APTT (25.1-36.5) SECONDS Sodium 134 L (137-145) mmol/L Potassium 4.6 (3.5-5.1) mmol/L Chloride 99 (98-107) mmol/L Carbon Dioxide 25 (22-30) mmol/L Anion Gap 15.0 (5-15) MEQ/L BUN 22 H (7-17) mg/dL Creatinine 0.98 (0.52-1.04) mg/dL Estimated GFR 59.1 ML/MIN Glucose 238 H (74-106) mg/dL Calcium 9.0 (8.4-10.2) mg/dL Total Bilirubin 0.80 (0.2-1.3) mg/dL AST 33 (14-36) U/L ALT 12 (0-35) U/L Alkaline Phosphatase 72 (38-126) U/L Troponin I (0.000-0.034) ng/mL Serum Total Protein 7.2 (6.3-8.2) g/dL Albumin 3.9 (3.5-5.0) g/dL - Progress Progress Note: 08/29/21 23:[address] Rosenberg at [facility] 08/29/21 23:35 Unable to obtain CTA RUE because pt could not position arm properly 08/30/21 00:36 Heparin 5000u bolus/1000u/hr drip Counseled pt/family regarding: lab results, diagnosis, need for follow-up, rad results - Departure Departure Disposition: Transfer Clinical Impression: Axillary artery thrombosis, right Condition: Stable Critical Care Time: Yes Critical Care Time(excluding separately billable procedures): Critical 30-74 mins Referrals: ANALI MONTGOMERY [Primary Care Provider] - Follow up/PCP as directed
[2021-08-29] MEDS ORDERED: SUBLIMAZE 100 MCG/2 ML IV ONE (22:01)
[2021-08-29] MEDS ORDERED: Zofran 4 MG/2 ML VIAL IV ONE (22:02)
[2021-08-29] MEDS ORDERED: Zofran 4 MG/2 ML VIAL ONE (22:05)
[2021-08-29] MEDS ORDERED: SUBLIMAZE 100 MCG/2 ML ONE (22:06)
[2021-08-29] MEDS ORDERED: Heparin 5000 UNITS/0.5 ML (HIGH RISK MED) IV ONE (23:27)
[2021-08-29] MEDS ORDERED: Heparin 25,000 units/D5W 250ML PREMIX 25,000 UNITS/250 ML BAG IV SCH (23:30)
[2021-08-29 23:31] VITALS: BP 124/64; PULSE 60
[2021-08-29] MEDS ORDERED: Heparin 5000 UNITS/0.5 ML (HIGH RISK MED) ONE (23:33)
[2021-08-29] MEDS ORDERED: Heparin 25,000 units/D5W 250ML PREMIX 25,000 UNITS/250 ML BAG IV ONE (23:34)
--- NOTE | 2021-08-30 08:33 | XRAY ---
Indication: Right arm pain. No pulse right arm. Multiple contiguous axial images obtained through the head without contrast. Comparison: July 03, 2021. There is age-appropriate global atrophy, mild periventricular degenerative micro-ischemia bilaterally, and remote lacunar infarct right external capsule/left basal ganglia. No acute intracranial hemorrhage, abnormal extra-axial fluid collection, or mass effect. Fourth ventricle is midline without hydrocephalus. Bony calvarium intact. Visualized paranasal sinuses and mastoid air cells are clear. Impression: Continued nonacute senile brain with remote lacunar infarcts.
--- NOTE | 2021-08-30 08:41 | XRAY ---
Indication: Right arm pain and cold hand. Two-dimensional sonogram and color Doppler imaging of the major arteries of the right upper extremity performed. Comparison: None Visualized subclavian artery is widely patent with normal multiphasic arterial waveforms. Axillary artery demonstrates scattered arteriosclerotic disease without obstruction. Brachial artery is negative for critical stenosis/obstruction. Axillary and brachial arterial waveforms are markedly attenuated and monophasic. The radial and ulnar arteries were not visualized. Impression: 1. Axillary arteriosclerotic disease producing stenosis with subsequent attenuated monophasic arterial waveforms. 2. Nonvisualization radial and ulnar arteries. Comment: Preliminary report was given.
== END 2021-08-29 23:55 | disposition short-term general hospital (02) ==
LOC: ED 20:04
DX: I74.2 Embolism and thrombosis of arteries of the upper extremities (principal); I50.9 Heart failure, unspecified; E11.9 Type 2 diabetes mellitus without complications; Z79.4 Long term (current) use of insulin; Z86.718 Personal history of other venous thrombosis and embolism; Z79.01 Long term (current) use of anticoagulants; E78.5 Hyperlipidemia, unspecified; J44.9 Chronic obstructive pulmonary disease, unspecified; Z86.73 Personal history of transient ischemic attack (TIA), and cerebral infarction without residual deficits; Z79.899 Other long term (current) drug therapy
CPT/HCPCS: 36000; 36415; 70450; 80053; 84484; 85025; 85610; 85730; 93005; 93931; 96374; 96375; 99285; 99291; J1644; J2405; J3010